=== PATIENT | male | born 1990 | race Caucasian/White ===

== ENCOUNTER 2022-01-13 13:21 | Emergency (ER) | payer MEDICAID, SELFPAY ==
[2022-01-13 13:30] VITALS: BP 108/66; PULSE 95; RESP 17; TEMP 36.1; O2SAT 98; BMI 24.5
[2022-01-13 13:38] LABS: Basophils Percent Auto 0.2 % (0-2); Eosinophils Absolute Auto 0.3 X10*3/uL (0.0-0.4); Eosinophils Percent Auto 3.5 % (0-4); Hematocrit 38.5 % (42.0-52.0); Imm Gran Abs Auto 0.08 X10*3/uL (0.00-0.03); Lymphocytes Absolute Auto 2.6 X10*3/uL (1.2-4.9); Lymphocytes Percent Auto 31.1 % (20-40); MANUAL DIFF FLAG SCAN; Mean Corpuscular HGB Conc 33.8 g/dl (31.0-36.0); Mean Corpuscular Volume 88.7 fL (80.0-98.0); Mean Platelet Volume 9.9 fL (9.4-12.4); Monocytes Absolute Auto 0.9 X10*3/uL (0.1-1.2); Monocytes Percent Auto 11.1 % (2-11); Neutrophils Absolute Auto 4.3 x10*3/uL (2.0-8.3); Neutrophils Percent Auto 53.1 % (45-73); Platelet Count 253 X10*3/uL (160-400); Red Blood Count 4.34 X10*6/uL (4.60-5.80); Red Cell Distribution Width 12.3 % (11.0-16.0); SCAN SMEAR FLAG 1; White Blood Count 8.2 X10*3/uL (4.8-10.8)
[2022-01-13 13:53] LABS: Anion Gap 13 (12-20); Blood Urea Nitrogen 17 mg/dL (9-16); Calcium 8.9 mg/dL (8.4-10.2); Carbon Dioxide 25 mmol/L (22-29); Chloride 108 mmol/L (96-108); Creatinine Clr Calc Pharmacy 123.3; Estimated Glomerular Filt Rate > 60; Glucose Random 105 mg/dL (60-115); Potassium 3.6 mmol/L (3.3-5.1); Sodium 142 mmol/L (135-145)
[2022-01-13 14:06] LABS: SLIDE REVIEW VERIFIED
== END 2022-01-13 17:59 | disposition left against medical advice (07) ==
LOC: HO.ED 17:34
PROVIDERS: Emergency Provider Emergency Medicine
DX: R10.9 Unspecified abdominal pain (principal)
CPT/HCPCS: 36415; 80048; 85025; 99283

== ENCOUNTER 2022-01-14 07:26 | Emergency (ER) | payer MEDICAID, SELFPAY ==
--- NOTE | ~2022-01-14 | XR_ITS ---
EXAMINATION: XR RIBS, LEFT CLINICAL INFORMATION: Left chest wall pain COMPARISON: Previous x-ray September 2019 TECHNIQUE: 3 views of the left ribs and one view of the chest were obtained. FINDINGS: Lungs are clear. No consolidation, pneumothorax, or pleural effusion. The cardiomediastinal silhouette and pulmonary vasculature are normal. Osseous structures are unremarkable. Ribs are intact. No fractures are identified. XR/XR ribs LT min 3V w CXR1V IMPRESSION: Unremarkable examination.
[2022-01-14 07:30] VITALS: BP 110/70; PULSE 80; O2SAT 98
[2022-01-14 07:33] VITALS: BP 100/66; PULSE 79; RESP 18; TEMP 36.6; O2SAT 99; BMI 24.2
--- NOTE | 2022-01-14 08:55 | PC.NURSE ---
collar placed on patient, patient removed collar and says that his neck does not hurt but his jaw is killing him.
--- NOTE | 2022-01-14 09:03 | ECG_ITS ---
Test Reason : CHEST PAIN Blood Pressure : / mmHG Vent. Rate : 083 BPM Atrial Rate : 083 BPM P-R Int : 156 ms QRS Dur : 084 ms QT Int : 372 ms P-R-T Axes : 046 059 050 degrees QTc Int : 437 ms Normal sinus rhythm Normal ECG When compared with ECG of 07-SEP-2019 23:52, No significant change was found Referred By: Quita Waller Electronically Signed By:SANDY ISABEL MD
--- NOTE | 2022-01-14 09:04 | ED_ITS ---
HPI - General Adult General Chief complaint: Psychiatric Symptoms Stated complaint: left flank pain - improved with rest Time Seen by Provider: 01/14/22 09:00 Source: patient Mode of arrival: ambulatory Limitations: no limitations History of Present Illness HPI narrative: 31-year-old male came in for evaluation of chest pain. Chest pain localized to the left side of the chest for 1 day pain is localized to the left side with no radiation, described as sharp aching pain constant since yesterday increase with movement and taking a deep breath. It not associated with shortness of breath, no recent trauma to chest, no recent travel, no lower extremity swelling or tenderness. Patient declined using drugs in particular cocaine, there is a history of cigarette smoking, no family history of coronary artery disease or young . Patient came to the emergency department yesterday because of the high volume patient did not want to wait and left to the scene. Related Data Allergies Allergy/AdvReac Type Severity Reaction Status Date / Time Penicillins [PENICILLINS] Allergy Unknown UKNOWN Verified 01/13/22 13:33 haloperidol [From Haldol] Allergy Unknown Verified 01/13/22 13:33 Review of Systems Review of Systems: All other systems are reviewed and are negative Constitutional: Reports as per HPI and Reports no additional constitutional complaints Eyes: Reports as per HPI and Reports no additional eye complaints Reports system reviewed and no additional complaints, except as documented Cardiovascular: Reports as per HPI and Reports no additional cardiovascular complaints Respiratory: Reports as per HPI and Reports no additional respiratory complaints Gastrointestinal: Reports as per HPI and Reports no additional gastrointestinal complaints Genitourinary: Reports no additional female genitourinary complaints Musculoskeletal: Reports no additional musculoskeletal complaints Skin/Breast: Reports system reviewed and no additional complaints, except as docu Psychiatric: Reports no additional psychiatric complaints Endocrine: Reports no additional endocrine complaints Hematologic/Lymphatic: Reports no additional hematologic/lymphatic complaints Allergic/Immunologic: Reports no additional allergic/immunologic complaints Reports system reviewed and no additional complaints, except as documented and Reports Abnormal speech present PMFSH Social History Social History Advance Directives: No Advance Directives Information Provided: No Physical Exam ED Vital Signs: Vital Signs - 24 hr 01/14/22 07:33 01/14/22 09:58 Temperature 98 F 97.8 F Pulse Rate 79 75 Respiratory Rate 18 15 Blood Pressure 100/66 103/64 Pulse Oximetry 99 98 BMI result Body Mass Index 24.2 Vital signs have been reviewed as appeared to be correct. Blood pressure normal. Heart rate normal. Respiration rate normal. Temperature normal. Oxygen saturation normal. Appearance: Alert. Oriented X3. No acute distress. Head: Normal external exam. Normocephalic. Atraumatic. No Cohen signs noted. No raccoon eyes noted Eyes: PERRLA. EOMI. Conjunctiva and sclera normal. Eyelids normal. ENT: TM's Normal. Pharynx normal. Uvula midline. Moist mucous membranes. No trismus noted. No drooling noted. No muffled voice noted. Neck: Normal inspection. Neck supple. FROM. No adenopathy. Thyroid Normal. No meningeal signs. No neck mass noted. CVS: Normal heart rate and rhythm. Heart sound normal. No murmurs noted. Pulses normal throughout. Respiratory: No respiratory distress. Painless inspiration. Breath sounds normal. No wheezes/rales/rhonchi noted. Chest nontender. No accessory muscle usage noted or decreased air movement noted. Abdomen: Soft and nontender. Bowel sounds normal in all 4 quadrants. No distention noted. No organomegaly noted. No visible injury noted. Back: No CVA tenderness. Full range of motion noted. Skin: Skin warm and dry. Normal skin color. Normal skin turgor. No rashes/lesions/lacerations noted. Extremities: No lower extremity edema. Extremities exhibit normal range of motion. Extremities nontender. Neuro: Oriented X 3. Cranial nerve exam: II-XII are grossly intact No motor deficit. No sensory deficit. Reflexes normal. Course Course Course Narrative: Assessment and plan. 31-year-old male came in with left-sided chest pain, unremarkable cardiac workup and chest x-ray, HEART SCORE is 0. D-dimer is negative with no risk for PE. Reevaluation(s) Reevaluation #1: While patient been evaluated for chest pain patient claimed that his hearing voices telling him to hurt himself and others and patient feels very anxious and unsafe like to be evaluated by N. Patient had a previous mental hospitalization but there is no official psychiatric diagnosis for the patient. Will consult N. Patient was placed on physician observation at 12:10 waiting for mental evaluation patient appears stable with stable vital signs and medically cleared for psych evaluation. Time: 12:10 Medical Decision Making Lab Data Lab results reviewed: Yes I reviewed the patient's lab results. Result diagrams: 01/14/22 10:11 01/14/22 10:11 Labs: Lab Results 01/14/22 01/14/22 01/14/22 Range/Units 10:11 10:11 10:11 WBC 7.7 (4.8-10.8) X10*3/uL RBC 4.55 L (4.60-5.80) X10*6/uL Hgb 13.3 L (14.0-18.0) g/dl Hct 40.5 L (42.0-52.0) % MCV 89.0 (80.0-98.0) fL MCH 29.2 (27.0-33.0) pg MCHC 32.8 (31.0-36.0) g/dl RDW 12.4 (11.0-16.0) % Plt Count 247 (160-400) X10*3/uL MPV 9.9 (9.4-12.4) fL Immature Gran % (Auto) 1.4 H (0.0-0.4) % Neut % (Auto) 47.7 (45-73) % Lymph % (Auto) 35.9 (20-40) % [place] % (Auto) 11.1 H (2-11) % Eos % (Auto) 3.6 (0-4) % Baso % (Auto) 0.3 (0-2) % Lymph # (Auto) 2.8 (1.2-4.9) X10*3/uL [place] # (Auto) 0.9 (0.1-1.2) X10*3/uL Eos # (Auto) 0.3 (0.0-0.4) X10*3/uL Baso # (Auto) 0.0 (0.0-0.2) X10*3/uL Abs Immat Gran (auto) 0.11 H (0.00-0.03) X10*3/uL Absolute Neuts (auto) 3.7 (2.0-8.3) x10*3/uL Absolute Nucleated RBC 0.000 (0.0-0.012) X10*3/uL Nucleated RBC % (auto) 0.0 (0.0-0.2) /100WBC Smear Tech's Comments VERIFIED D-Dimer High Sensitivty < 150 NG/ML Sodium 139 (135-145) mmol/L Potassium 4.2 (3.3-5.1) mmol/L Chloride 106 (96-108) mmol/L Carbon Dioxide 26 (22-29) mmol/L Anion Gap 11 L (12-20) BUN 14 (9-16) mg/dL Creatinine 0.73 (0.5-1.4) mg/dL Estim Creat Clear Calc 133.5 Estimated GFR > 60 Random Glucose 100 (60-115) mg/dL Calcium 8.9 (8.4-10.2) mg/dL Total Bilirubin 0.2 (0.0-1.0) mg/dL Direct Bilirubin < 0.2 (0.0-0.5) mg/dL AST 47 H (5-37) U/L ALT 69 H (0-40) U/L Alkaline Phosphatase 116 (39-117) U/L Troponin I High Sens (<3.5-35.0) ng/L Total Protein 6.7 (6.5-8.0) g/dL Albumin 3.7 (3.5-5.0) g/dL Lipase 53 (8-78) U/L 01/14/22 Range/Units 10:11 WBC (4.8-10.8) X10*3/uL RBC (4.60-5.80) X10*6/uL Hgb (14.0-18.0) g/dl Hct (42.0-52.0) % MCV (80.0-98.0) fL MCH (27.0-33.0) pg MCHC (31.0-36.0) g/dl RDW (11.0-16.0) % Plt Count (160-400) X10*3/uL MPV (9.4-12.4) fL Immature Gran % (Auto) (0.0-0.4) % Neut % (Auto) (45-73) % Lymph % (Auto) (20-40) % [place] % (Auto) (2-11) % Eos % (Auto) (0-4) % Baso % (Auto) (0-2) % Lymph # (Auto) (1.2-4.9) X10*3/uL [place] # (Auto) (0.1-1.2) X10*3/uL Eos # (Auto) (0.0-0.4) X10*3/uL Baso # (Auto) (0.0-0.2) X10*3/uL Abs Immat Gran (auto) (0.00-0.03) X10*3/uL Absolute Neuts (auto) (2.0-8.3) x10*3/uL Absolute Nucleated RBC (0.0-0.012) X10*3/uL Nucleated RBC % (auto) (0.0-0.2) /100WBC Smear Tech's Comments D-Dimer High Sensitivty NG/ML Sodium (135-145) mmol/L Potassium (3.3-5.1) mmol/L Chloride (96-108) mmol/L Carbon Dioxide (22-29) mmol/L Anion Gap (12-20) BUN (9-16) mg/dL Creatinine (0.5-1.4) mg/dL Estim Creat Clear Calc Estimated GFR Random Glucose (60-115) mg/dL Calcium (8.4-10.2) mg/dL Total Bilirubin (0.0-1.0) mg/dL Direct Bilirubin (0.0-0.5) mg/dL AST (5-37) U/L ALT (0-40) U/L Alkaline Phosphatase (39-117) U/L Troponin I High Sens < 3.5 (<3.5-35.0) ng/L Total Protein (6.5-8.0) g/dL Albumin (3.5-5.0) g/dL Lipase (8-78) U/L Imaging Data Chest x-ray/left rib x-ray: Attestation: I personally reviewed and interpreted this imaging study as follows: Radiologist's impression: Unremarkable examination. ECG Data Attestation: I personally reviewed and interpreted this ECG as follows: Interpretation: Normal sinus rhythm at 83 beats per minute, normal axis deviation, normal intervals, no ST-T changes. Discharge Plan Discharge Clinical Impression: Acute chest wall pain Patient Disposition: Still a Patient
[2022-01-14 09:58] VITALS: BP 103/64; PULSE 75; RESP 15; TEMP 36.6; O2SAT 98
[2022-01-14 10:17] LABS: Basophils Percent Auto 0.3 % (0-2); Eosinophils Absolute Auto 0.3 X10*3/uL (0.0-0.4); Eosinophils Percent Auto 3.6 % (0-4); Hematocrit 40.5 % (42.0-52.0); Hemoglobin 13.3 g/dl (14.0-18.0); Imm Gran Abs Auto 0.11 X10*3/uL (0.00-0.03); Imm Gran Pct Auto 1.4 % (0.0-0.4); Lymphocytes Absolute Auto 2.8 X10*3/uL (1.2-4.9); Lymphocytes Percent Auto 35.9 % (20-40); MANUAL DIFF FLAG SCAN; Mean Corpuscular HGB Conc 32.8 g/dl (31.0-36.0); Mean Corpuscular Hemoglobin 29.2 pg (27.0-33.0); Mean Platelet Volume 9.9 fL (9.4-12.4); Monocytes Absolute Auto 0.9 X10*3/uL (0.1-1.2); Monocytes Percent Auto 11.1 % (2-11); Neutrophils Absolute Auto 3.7 x10*3/uL (2.0-8.3); Neutrophils Percent Auto 47.7 % (45-73); Platelet Count 247 X10*3/uL (160-400); Red Blood Count 4.55 X10*6/uL (4.60-5.80); Red Cell Distribution Width 12.4 % (11.0-16.0); SCAN SMEAR FLAG 1; White Blood Count 7.7 X10*3/uL (4.8-10.8)
[2022-01-14 10:27] LABS: D Dimer High Sensitivity < 150 NG/ML
[2022-01-14 10:35] LABS: Alanine Aminotransferase 69 U/L (0-40); Albumin Level 3.7 g/dL (3.5-5.0); Alkaline Phosphatase 116 U/L (39-117); Anion Gap 11 (12-20); Aspartate Amino Transferase 47 U/L (5-37); Bilirubin Direct < 0.2 mg/dL (0.0-0.5); Bilirubin Total 0.2 mg/dL (0.0-1.0); Blood Urea Nitrogen 14 mg/dL (9-16); Calcium 8.9 mg/dL (8.4-10.2); Carbon Dioxide 26 mmol/L (22-29); Chloride 106 mmol/L (96-108); Creatinine Clr Calc Pharmacy 133.5; Estimated Glomerular Filt Rate > 60; Glucose Random 100 mg/dL (60-115); Lipase 53 U/L (8-78); Potassium 4.2 mmol/L (3.3-5.1); Sodium 139 mmol/L (135-145); Total Protein 6.7 g/dL (6.5-8.0)
[2022-01-14 10:36] LABS: SLIDE REVIEW VERIFIED
[2022-01-14 10:40] LABS: Troponin-I High Sensitivity < 3.5 ng/L (<3.5-35.0)
--- NOTE | 2022-01-14 10:47 | SUR.OPER ---
PT STATES I WANT TO SPEAK TO PSYCHIATRY, I AM HAVING HALLUCINATIONS AND HAVING THOUGHTS OF KILLING OTHER PEOPLE. STUDIO TECHNICIAN AWARE.
--- NOTE | 2022-01-14 10:57 | PC.NURSE ---
REPORT GIVEN TO SAURAV RN IN POD, PT ESCORTED BY SECURITY AND POD STAFF OVER TO POD.
--- NOTE | 2022-01-14 11:00 | PC.NURSE ---
PT TRANSFERED TO POD FROM EM, ORIGINALLY CAME IN FOR CHEST PAIN, THEN STATED HAVING HALLUCINATIONS AND HOMICIDAL IDEATION.
[2022-01-14 12:29] LABS: Appearance Urine CLEAR; Color Urine YELLOW; Glucose Urine UA NEG (NEG); Leukocyte Esterase Urine NEG (NEG); Nitrite Urine NEG (NEG); Specific Gravity - Urine 1.025 (1.005-1.025); Urine Blood NEG (NEG); Urine Ketones NEG (NEG); Urine Protein NEG (NEG-TRACE)
[2022-01-14 12:41] LABS: Amphetamine Screen Urine Not Detected (Not Detect); Barbiturates, Urine Not Detected (Not Detect); Benzodiazepines Screen Urine Not Detected (Not Detect); Cannabinoid Screen Urine POSITIVE (Not Detect); Cocaine Screen Urine Not Detected (Not Detect); Fentanyl, urine Not Detected (Not Detect); Opiate Screen Urine Not Detected (Not Detect); Phencyclidine Screen Urine Not Detected (Not Detect)
[2022-01-14 14:30] LABS: Ethanol < 10 mg/dL
[2022-01-14 16:20] LABS: COVID-19 Test Negative (Negative)
[2022-01-15 05:55] VITALS: BP 97/65; PULSE 75; RESP 17; O2SAT 97
--- NOTE | 2022-01-15 06:06 | PC.NURSE ---
Patient slept through the night, no distress observed/reported, currently not on medication, behavior appropriate and non concerning at this time, disposition per care team is section 12 inpatient bed search, contracted for the safety, VSS, will continue to monitor.
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
[2022-01-15] MEDS: LORazepam 1 MG TABLET 2 MG PO (16:04)
--- NOTE | 2022-01-15 16:09 | PC.NURSE ---
Spoke with psych PA regarding pt being discharged from hospital PA notified that patient just took 2mg ativan po. PA gave this nurse ok to discharge patient.
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
== END 2022-01-15 16:54 | disposition home or self-care (01) ==
PROVIDERS: Physician Assistant; Emergency Provider Emergency Medicine
DX: F39 Unspecified mood [affective] disorder (principal); R07.89 Other chest pain; Z59.02 Unsheltered homelessness; Z20.822 Contact with and (suspected) exposure to COVID-19
CPT/HCPCS: 36415; 71101; 80048; 80076; 80307; 81003; 82077; 83690; 84484; 85025; 85379; 87635; 93005; 99284

== ENCOUNTER 2022-01-18 18:00 | Emergency (ER) | payer MEDICAID, SELFPAY ==
[2022-01-18 18:40] VITALS: BP 113/69; PULSE 77; RESP 14; TEMP 36.6; O2SAT 99; BMI 25.0
[2022-01-18 20:14] LABS: Ethanol < 10 mg/dL
[2022-01-18 20:18] LABS: COVID-19 Test Negative (Negative); IDNOW Serial# 55D5AD1C
[2022-01-18 20:25] LABS: Amphetamine Screen Urine Not Detected (Not Detect); Barbiturates, Urine Not Detected (Not Detect); Benzodiazepines Screen Urine Not Detected (Not Detect); Cannabinoid Screen Urine POSITIVE (Not Detect); Cocaine Screen Urine POSITIVE (Not Detect); Fentanyl, urine POSITIVE (Not Detect); Opiate Screen Urine Not Detected (Not Detect); Phencyclidine Screen Urine Not Detected (Not Detect)
--- NOTE | 2022-01-18 20:37 | ED_ITS ---
HPI - Psych General Chief Complaint: Psychiatric Symptoms <Christy Reddy BARBI Brady - Last Filed: 01/19/22 01:52> Stated Complaint: Crisis <Christy AranaBARBI salter - Last Filed: 01/19/22 01:52> Time Seen by Provider: 01/18/22 19:21 <Christy Reddy BARBI Brady - Last Filed: 01/19/22 01:52> Source: patient <Christy BradyBARBI - Last Filed: 01/19/22 01:52> Mode of arrival: ambulatory <Christy AranaBARBI salter - Last Filed: 01/19/22 01:52> Limitations: no limitations <Christy AranaBARBI salter - Last Filed: 01/19/22 01:52> History of Present Illness HPI Narrative: Patient presents to the emergency department requesting to see crisis/spe ak to a psychiatrist. He states that he has been hearing voices and they are arguing with him and he feels unsafe. He endorses suicidal ideations and homicidal ideations, but is vague in declines to provide any further details. States he is not currently taking any medications. Reports that he used heroin a few days ago, but has not used any other drugs or alcohol. Denies fevers, chills, upper respiratory symptoms, chest pain, palpitations, shortness of breath, difficulty breathing, nausea, vomiting, abdominal pain, dysuria, urinary frequency, numbness or tingling of the extremities, generalized weakness. <Christycristina Brady CNP - Last Filed: 01/19/22 01:52> MD complaint: suicidal ideation, homicidal ideation and hallucinations <Christy Maureenmariah Brady CNP - Last Filed: 01/19/22 01:52> Onset (ago): day(s) <Christycristina Brady CNP - Last Filed: 01/19/22 01:52> History of same: Yes <Christycristina Brady CNP - Last Filed: 01/19/22 01:52> Relieving factors: none <Christy Brady CNP Last Filed: 01/19/22 01:52> Exacerbating factors: none <Christy Brady CNP - Last Filed: 01/19/22 01:52> Related Data Home Medications: Home Medications Medication Instructions Recorded Confirmed No Known Home Meds 01/14/22 01/14/22 <Christy Brady CNP - Last Filed: 01/19/22 01:52> Allergies/Adverse Reactions: Allergies Allergy/AdvReac Type Severity Reaction Status Date / Time Penicillins [PENICILLINS] Allergy Unknown [place] Verified 01/13/22 13:33 haloperidol [From Haldol] Allergy Unknown Verified 01/13/22 13:33 <Christy Brady CNP - Last Filed: 01/19/22 01:52> Review of Systems Review of Systems: Constitutional : No Fever, No Chills ENT/Mouth : No Ear Pain, No Nasal Congestion, No sore throat Eyes: No Eye Pain, No Swelling, No Redness Cardiovascular : No Chest Pain, No SOB Respiratory : No Cough, No Sputum, No Dyspnea Gastrointestinal : No Nausea, No Vomiting, No Diarrhea, No Hematochezia, No Melena Genitourinary : No Dysuria, No Urinary Frequency, No Hematuria Musculoskeletal : No Myalgias Skin : No Skin Lesions, No rash Neuro : No Weakness, No Numbness, No Paresthesias, No Dizziness, No Headache Psych : positive Anxiety, no Depression, positive SI/HI, positive auditory hallucinations Heme/Lymph: No Lymphadenopathy Endocrine : No Polyuria, No Polydipsia <Christy Brady CNP - Last Filed: 01/19/22 01:52> Yes all other systems are reviewed and are negative <Christy Brady CNP - Last Filed: 01/19/22 01:52> [facility] Past Medical History Attestation statement: The following information was validated with the patient. <Christy Brady CNP - Last Filed: 01/19/22 01:52> Source: old records reviewed <Christy Brady CNP - Last Filed: 01/19/22 01:52> Social History Social History: Social History Advance Directives: No Advance Directives Information Provided: No Healthcare Proxy: No Guardian: No <Christy Brady CNP - Last Filed: 01/19/22 01:52> Physical Exam Vital Signs: Vital Signs: Last Vital Signs Temp 97.8 F 01/18/22 18:40 Pulse 77 01/18/22 18:40 Resp 17 01/19/22 06:50 BP 113/69 01/18/22 18:40 Pulse Ox 99 01/18/22 18:40 BMI result Body Mass Index 25.0 Vital signs have been reviewed as normal and appeared to be correct. Blood pressure normal.? Heart rate normal.? Respiration rate normal. Temperature normal.? Oxygen saturation normal. <Christy Brady CNP - Last Filed: 01/19/22 01:52> Vital Signs: Last Vital Signs Temp 97.8 F 01/18/22 18:40 Pulse 77 01/18/22 18:40 Resp 17 01/19/22 06:50 BP 113/69 01/18/22 18:40 Pulse Ox 99 01/18/22 18:40 BMI result Body Mass Index 25.0 <RASHAD Richter - Last Filed: 01/19/22 11:21> Appearance: Alert.?Oriented to person, place and time. No acute distress.?Normal affect. Eyes: Pupils equal, round and reactive to light.? ENT: Pharynx normal.?? Neck: Normal inspection.? Neck supple.?? CVS: Heart sounds normal. Normal heart rate and rhythm.? Pulses normal.?? Respiratory: No respiratory distress.? Lung sounds clear to auscultation bilaterally?? Abdomen: Soft and non-tender. Normoactive bowel sounds. Skin: Skin warm and dry.? Normal skin color.? Extremities: No lower extremity edema.? Neuro: Moves all extremities spontaneously. Sensation intact bilaterally. CN II- XII intact. No focal neuro deficits. Ambulates with normal steady gait. <Christy Brady CNP - Last Filed: 01/19/22 01:52> Course Course Course Narrative: Patient is a 31-year-old male with a past medical history of substance use, and mood disorder. Presenting to the emergency department for evaluation of auditory hallucinations and vague suicidal and homicidal ideations. Patient was in the emergency department 3 days ago with similar complaints, he was of evaluated by Psychiatry and reports that he had a wide about suicidal ideations because he is homeless and wanted is to stay in the hospital longer after being evaluated for chest pain. Will obtain drug of abuse screen, ethanol level, and COVID-19 testing, patient will be referred to [facility] for further disposition. <Christy Brady CNP - Last Filed: 01/19/22 01:52> Reevaluation(s) Reevaluation #1: COVID-19 testing is negative. Ethanol is not detected. Drug abuse screen positive for fentanyl, cocaine, marijuana. At this time patient placed in physician observation as he will require further time to be evaluated by and [facility]. He remains in stable condition, no apparent distress, respirations are regular even and non-labored, speaking in clear full sentences. <Christy Brady CNP - Last Filed: 01/19/22 01:52> Time: 20:43 <Christy Brady CNP - Last Filed: 01/19/22 01:52> Reevaluation #2: 1122 01/19/2022 Patient's physical exam is unchanged from previous. Patient is still awaiting [facility] evaluation. <RASHAD Richter - Last Filed: 01/19/22 11:21> MDM - Psych Medical Records Attestation: I reviewed the patient's medical records. <Christy Brady CNP - Last Filed: 01/19/22 01:52> Lab Data Attestation: I reviewed the patient's lab results. <Christy Brady CNP - Last Filed: 01/19/22 01:52> Labs: Lab Results 01/18/22 01/18/22 01/18/22 Range/Units 19:46 19:46 20:02 Urine Opiates Screen Not Detected (Not Detect) Urine Fentanyl Screen POSITIVE H (Not Detect) Ur Barbiturates Screen Not Detected (Not Detect) Ur Phencyclidine Scrn Not Detected (Not Detect) Ur Amphetamines Screen Not Detected (Not Detect) U Benzodiazepines Scrn Not Detected (Not Detect) Urine Cocaine Screen POSITIVE H (Not Detect) U Marijuana (THC) Screen POSITIVE H (Not Detect) Ethyl Alcohol < 10 mg/dL COVID-19 (SYLVAIN) Negative (Negative) COVID-19 Clin Com See Note <Christy Brady CNP - Last Filed: 01/19/22 01:52> Lab Results 01/18/22 01/18/22 01/18/22 Range/Units 19:46 19:46 20:02 Urine Opiates Screen Not Detected (Not Detect) Urine Fentanyl Screen POSITIVE H (Not Detect) Ur Barbiturates Screen Not Detected (Not Detect) Ur Phencyclidine Scrn Not Detected (Not Detect) Ur Amphetamines Screen Not Detected (Not Detect) U Benzodiazepines Scrn Not Detected (Not Detect) Urine Cocaine Screen POSITIVE H (Not Detect) U Marijuana (THC) Screen POSITIVE H (Not Detect) Ethyl Alcohol < 10 mg/dL COVID-19 (SYLVAIN) Negative (Negative) COVID-19 Clin Com See Note <RASHAD Richter - Last Filed: 01/19/22 11:21> Discharge Plan Discharge Clinical Impression: Auditory hallucination, Suicidal ideation <Christy Brady CNP - Last Filed: 01/19/22 01:52> Patient Disposition: Still a Patient <Christy Brady CNP - Last Filed: 01/19/22 01:52> Prescriptions: No Action No Known Home Meds 0RF <Christy Brady CNP - Last Filed: 01/19/22 01:52>
--- NOTE | 2022-01-19 06:22 | PC.NURSE ---
Patient slept through the night, no distress observed/reported, care team spoke with patient, pending disposition, NANDA f/u by care team, VSS, behavior non concerning at this time, patient is not on medication, will continue to monitor.
[2022-01-19 06:50] VITALS: RESP 17
--- NOTE | 2022-01-19 07:41 | PC.NURSE ---
pt asleep, resps are= and nonlabored. awaiting dispo from by care team.
--- NOTE | 2022-01-19 11:44 | PC.NURSE ---
pt is awake and alert, pt has been evaluated by care team, awaiting dispo. pt has intercating approprialty with staff.
--- NOTE | 2022-01-19 13:02 | PC.NURSE ---
Per care team pt is a voluntary bed search, pt is aware and agreeable to plan of care. pt is interacting appropriatly with staff and speaking in clear and even tones.
--- NOTE | 2022-01-19 16:05 | MHC.CARE ---
CARE Team meets with pt, as there is no local psych bed available. CARE Team explains to pt that the search will need to be expanded to [facility]. Pt states that he does not want to be hospitalized at this time. He denies SI/HI//AVH and agrees to return to the hospital or reach out to [facility] crisis if symptoms re emerge. Pt is given [place] passes, reporting that he has a safe place to stay. ED provider, RASHAD Cosme agrees to discharge pt at this time.
== END 2022-01-19 16:20 | disposition home or self-care (01) ==
PROVIDERS: Emergency Provider Internal Medicine
DX: F33.1 Major depressive disorder, recurrent, moderate (principal); R45.851 Suicidal ideations; R44.0 Auditory hallucinations; Z20.822 Contact with and (suspected) exposure to COVID-19; Z79.899 Other long term (current) drug therapy
CPT/HCPCS: 36415; 80307; 82077; 87635; 99284

== ENCOUNTER 2022-01-25 01:52 | Emergency (ER) | payer MEDICAID, SELFPAY ==
--- NOTE | ~2022-01-25 | XR_ITS ---
EXAMINATION: XR CHEST CLINICAL INFORMATION: Lateral chest pain COMPARISON: 01/14/2022 TECHNIQUE: 2 views of the chest were obtained. FINDINGS: The lungs are clear with no focal consolidation. No evidence of pneumothorax, pulmonary edema, or pleural effusions. The cardiomediastinal silhouette is unremarkable. No acute osseous findings. XR/XR chest 2V IMPRESSION: No acute cardiopulmonary findings.
[2022-01-25 02:01] VITALS: BP 160/90; PULSE 80; O2SAT 100
[2022-01-25 02:29] VITALS: BP 114/62; PULSE 76; PULSE 78; RESP 18; TEMP 36.4; O2SAT 98; BMI 21.2
--- NOTE | 2022-01-25 02:37 | ED.CHESTPAIN ---
HPI - Chest Pain General Chief Complaint: Chest Pain Stated Complaint: LEFT SIDED CHEST PAIN Time Seen by Provider: 01/25/22 02:37 Source: patient Mode of arrival: EMS Limitations: no limitations History of Present Illness HPI narrative: patient got chest pain while at a bar drinking. Pain is left lateral, no other symptoms complaint: chest pain Onset (ago): hour(s) Timing of current episode: constant Prior episodes: No Onset: during rest Pain location: left chest Severity: mild Quality: aching Related Data Previous Rx's Medication Instructions Recorded naproxen 500 mg tablet (Naprosyn) 500 mg PO BID #20 tab 01/25/22 Allergies Allergy/AdvReac Type Severity Reaction Status Date / Time Penicillins [PENICILLINS] Allergy Unknown [place] Verified 01/13/22 13:33 haloperidol [From Haldol] Allergy Unknown Verified 01/13/22 13:33 Review of Systems Constitutional: Constitutional: Reports no additional constitutional complaints Eyes: Eyes: Reports no additional eye complaints ENT: Denies dizziness Cardiovascular: Cardiovascular: Reports no additional cardiovascular complaints Respiratory: Respiratory: Reports as per HPI Gastrointestinal: Gastrointestinal: Reports no additional gastrointestinal complaints Musculoskeletal: Musculoskeletal: Reports no additional musculoskeletal complaints Integumentary/Breasts: Skin/Breast: Denies rash Neurologic: Reports system reviewed and no additional complaints, except as documented, Denies dizziness and Denies Sensory deficit (Neuro) Psychiatric: Psychiatric: Denies anxiety [facility] Social History Social History Advance Directives: No Advance Directives Information Provided: No Physical Exam Vital Signs: Vital Signs: Last Vital Signs Temp 97.5 F 01/25/22 02:29 Pulse 76 01/25/22 02:29 Resp 18 01/25/22 02:29 BP 114/62 01/25/22 02:29 Pulse Ox 98 01/25/22 02:29 BMI result Body Mass Index 21.2 Const: General: healthy appearing Nutritional Appearance: average body habitus Orientation/consciousness: oriented to person and patient oriented x3 Limitations: no limitations HEENT: Head: Yes normal to inspection Ears: external ears normal General nose exam: Normal external nose present Mouth: Normal oral and palatal mucosa present and oropharynx normal Throat: Yes posterior oropharynx normal Eyes: General: appearance normal, both eyes and all related structures Neck: Other: supple Neck: Yes normal visual inspection Chest: Chest palpation & inspection: normal inspection of the chest Resp: Auscultation: clear to auscultation bilaterally Cardio: Jugular venous distension: no JVD Rate: regular rate Rhythm: regular rhythm Heart sounds: S1 normal heart sound present and S2 normal heart sound present GI: Inspection: Yes normal to inspection Palpation (GI): Soft to palpation, nontender and No hepatosplenomegaly present Auscultation: normal bowel sounds : General: Yes no CVA tenderness Back/Spine/Pelvis: Back: no CVA tenderness Skin: General skin exam: no rashes or lesions noted Neuro: General: oriented to person and patient oriented x3 Cranial nerves: Yes CN's II-XII intact bilaterally Motor exam (neuro): 5/5 motor strength present throughout Sensory Exam: No Sensory deficit (Neuro) Extrem: General: Yes normal to inspection Psych: Appearance: grossly normal Course Reevaluation(s) Reevaluation #1: Patient with normal EKG and CXR with slightly reproducible chest pain on the left lateral side, will start NSAIDs and dc home Time: 03:45 MDM - Chest Pain Imaging Data Chest x-ray: Radiologist's impression: FINDINGS: The lungs are clear with no focal consolidation. No evidence of pneumothorax, pulmonary edema, or pleural effusions. The cardiomediastinal silhouette is unremarkable. No acute osseous findings. XR/XR chest 2V IMPRESSION: No acute cardiopulmonary findings. Discharge Plan Discharge Clinical Impression: Atypical chest pain, Acute costochondritis Patient Disposition: Home, Self-Care Instructions: Costochondritis (ED), Noncardiac Chest Pain (ED) Prescriptions: New naproxen [Naprosyn] 500 mg tablet 500 mg PO BID Qty: 20 0RF Referrals: Physician,Unknown J [Primary Care Provider] - 1 week
--- NOTE | 2022-01-25 02:43 | ECG_ITS ---
Test Reason : CP Blood Pressure : / mmHG Vent. Rate : 084 BPM Atrial Rate : 084 BPM P-R Int : 150 ms QRS Dur : 084 ms QT Int : 390 ms P-R-T Axes : 061 073 066 degrees QTc Int : 460 ms Normal sinus rhythm Normal ECG When compared with ECG of 14-JAN-2022 09:47, No significant change was found Referred By: Regis Oakes Electronically Signed By:Edmund Kwong
--- NOTE | 2022-01-25 04:00 | PC.NURSE ---
pt ambulated out t [facility] after dc. pt requested and was given apple juice
== END 2022-01-25 04:23 | disposition home or self-care (01) ==
PROVIDERS: Emergency Provider Emergency Medicine
DX: R07.89 Other chest pain (principal); M94.0 Chondrocostal junction syndrome [Tietze]
CPT/HCPCS: 71046; 93005; 99283; 99284

== ENCOUNTER 2022-01-29 00:15 | Emergency (ER) | payer MEDICAID, SELFPAY ==
[2022-01-29 00:27] VITALS: BP 125/73; PULSE 97; RESP 18; TEMP 36.7; O2SAT 97; BMI 24.3
[2022-01-29 00:32] VITALS: BP 111/74; PULSE 93; RESP 17; TEMP 36.7; O2SAT 96
--- NOTE | 2022-01-29 00:35 | ED.PSYCH ---
HPI - Psych General Chief Complaint: Psychiatric Symptoms Stated Complaint: SI Time Seen by Provider: 01/29/22 00:34 Source: patient Mode of arrival: ambulatory Limitations: no limitations History of Present Illness HPI Narrative: 31-year-old male with history of substance induced mood disorder, history of cocaine use, active heroin use who presents to the ER for evaluation of suicidal ideation with plan to overdose on heroin. This is his 4th ER visit this month. Patient was seen earlier for auditory hallucinations, SI and HI of which he later reported that he made up. He states he was admitted a few years ago and was on medications that made him feel better - he thinks it was seroquel, trazodone and other meds he cannot recall. He reports he was on Haldol as well but he doesn't believe in it. He also reports he does not believe in suboxone or methadone. He has been using heroin daily, last was earlier today. No withdrawal symptoms. He does not want detox. MD complaint: suicidal ideation and feels depressed Onset (ago): unknown Duration: constant History of same: Yes Relieving factors: none Exacerbating factors: drug use Context: recent drug abuse and not taking psychiatric medications Associated psychiatric symptoms: depression, suicidal ideation and auditory hallucinations Associated symptoms: denies other symptoms Treatments prior to arrival: none If self harm: admits thoughts of self harm and has plan Details of plan: OD on heroin Related Data Previous Rx's Medication Instructions Recorded naproxen 500 mg tablet (Naprosyn) 500 mg PO BID #20 tab 01/25/22 Allergies Allergy/AdvReac Type Severity Reaction Status Date / Time Penicillins [PENICILLINS] Allergy Unknown [place] Verified 01/29/22 00:26 haloperidol [From Haldol] Allergy Unknown Verified 01/29/22 00:26 Review of Systems Review of Systems: Constitutional: No Fever, No Chills ENT/Mouth: No sore throat, No Rhinorrhea, No Swallowing Difficulty Cardiovascular: No Chest Pain, No SOB Respiratory: No Cough, No Sputum, No Wheezing, No dyspnea Gastrointestinal: No Nausea, No Vomiting, No Diarrhea, No abdominal Pain Genitourinary: No Dysuria, No Urinary Frequency, No Hematuria Musculoskeletal: No joint pain, No Myalgias Skin: No Skin Lesions, No rash Neuro: No Weakness, No Numbness, No Dizziness, No Headache Psych: + Anxiety/Panic, +Depression, +SI, +AH, No VH, No HI Heme/Lymph: No Bruising, No Lymphadenopathy Physical Exam Vital Signs: Vital Signs: Last Vital Signs Temp 98.1 F 01/29/22 00:27 Pulse 97 01/29/22 00:27 Resp 18 01/29/22 00:27 BP 125/73 01/29/22 00:27 Pulse Ox 97 01/29/22 00:27 BMI result Body Mass Index 24.3 Appearance: Alert. Oriented X3. No acute distress. Eyes: Pupils equal, round and reactive to light. ENT: Pharynx normal. Neck: Normal inspection. Neck supple. CVS: Normal heart rate and rhythm. Pulses normal. Respiratory: No respiratory distress. Breath sounds normal. Abdomen: Soft and nontender. +BS x4 Skin: Skin warm and dry. Normal skin color. Normal skin turgor. No rashes. Extremities: No lower extremity edema. Neuro: Oriented X 3. No motor deficit. No sensory deficit. CN II-XII intact. Steady gait. Makes eye contact, verbally abusive to staff. Poor insight and judgment. Course Course Course Narrative: 31 yo male with substance induced mood disorder presenting with SI in the setting of active drug use. Doesn't believe in methadone or suboxone. He is seeking admission to get started back on psychiatric medications. Will check his Utox and re-evaluate him in the morning when he is sober. N referral to be made in the morning. Will start physician observation at this time. Physician observation started at 1:19am. Patient placed in physician observation because patient is awaiting [facility] evaluation for the possible need of inpatient psych admission. At the time observation was started patient's vital signs were stable. Patient is alert and oriented. Neuro exam is non-focal. CV: RRR and lungs are clear. Will continue to monitor. Discharge Plan Discharge Clinical Impression: Substance induced mood disorder Patient Disposition: Still a Patient Prescriptions: No Action naproxen [Naprosyn] 500 mg tablet 500 mg PO BID Qty: 20 0RF
[2022-01-29 01:24] LABS: Amphetamine Screen Urine Not Detected (Not Detect); Barbiturates, Urine Not Detected (Not Detect); Benzodiazepines Screen Urine Not Detected (Not Detect); Cannabinoid Screen Urine POSITIVE (Not Detect); Cocaine Screen Urine Not Detected (Not Detect); Fentanyl, urine POSITIVE (Not Detect); Opiate Screen Urine Not Detected (Not Detect); Phencyclidine Screen Urine Not Detected (Not Detect)
[2022-01-29 01:25] LABS: COVID-19 Test Negative (Negative)
[2022-01-29 01:37] LABS: MANUAL DIFF FLAG NO
[2022-01-29 01:38] LABS: Basophils Percent Auto 0.3 % (0-2); Eosinophils Absolute Auto 0.4 X10*3/uL (0.0-0.4); Eosinophils Percent Auto 3.6 % (0-4); Hemoglobin 11.9 g/dl (14.0-18.0); Imm Gran Abs Auto 0.04 X10*3/uL (0.00-0.03); Imm Gran Pct Auto 0.4 % (0.0-0.4); Lymphocytes Absolute Auto 3.2 X10*3/uL (1.2-4.9); Lymphocytes Percent Auto 33.2 % (20-40); Mean Corpuscular HGB Conc 33.1 g/dl (31.0-36.0); Mean Corpuscular Hemoglobin 29.2 pg (27.0-33.0); Mean Corpuscular Volume 88.2 fL (80.0-98.0); Mean Platelet Volume 10.5 fL (9.4-12.4); Monocytes Absolute Auto 1.1 X10*3/uL (0.1-1.2); Monocytes Percent Auto 11.4 % (2-11); Neutrophils Absolute Auto 4.9 x10*3/uL (2.0-8.3); Neutrophils Percent Auto 51.1 % (45-73); Platelet Count 250 X10*3/uL (160-400); Red Blood Count 4.08 X10*6/uL (4.60-5.80); Red Cell Distribution Width 12.6 % (11.0-16.0); White Blood Count 9.6 X10*3/uL (4.8-10.8)
[2022-01-29 01:55] LABS: Ethanol < 10 mg/dL
[2022-01-29 01:58] LABS: Acetaminophen LAB < 1 mcg/mL (<30); Salicylate < 5.0 mg/dL (15-30)
[2022-01-29 01:58] LABS: Alanine Aminotransferase 22 U/L (0-40); Albumin Level 3.7 g/dL (3.5-5.0); Alkaline Phosphatase 101 U/L (39-117); Anion Gap 12 (12-20); Aspartate Amino Transferase 20 U/L (5-37); Bilirubin Direct < 0.2 mg/dL (0.0-0.5); Bilirubin Total 0.3 mg/dL (0.0-1.0); Blood Urea Nitrogen 9 mg/dL (9-16); Calcium 9.2 mg/dL (8.4-10.2); Carbon Dioxide 28 mmol/L (22-29); Chloride 103 mmol/L (96-108); Creatinine Clr Calc Pharmacy 128.2; Estimated Glomerular Filt Rate > 60; Glucose Random 94 mg/dL (60-115); Potassium 3.8 mmol/L (3.3-5.1); Sodium 139 mmol/L (135-145); Total Protein 6.3 g/dL (6.5-8.0)
--- NOTE | 2022-01-29 07:16 | PC.NURSE ---
Patient slept through the night, no distress observed/reported, patient is currently not on any medication, [facility] referral completed/confirmed/pending ETA, VSS, contracted for the safety, behavior non concerning and appropriate, will continue to monitor.
--- NOTE | 2022-01-29 09:55 | PC.NURSE ---
seen by n pt aware of plan of care.
[2022-01-29 10:08] VITALS: BP 93/41; PULSE 62; RESP 16; O2SAT 97
--- NOTE | 2022-01-29 10:57 | PC.NURSE ---
pt request/given bus pass.
== END 2022-01-29 11:08 | disposition home or self-care (01) ==
PROVIDERS: Physician Assistant; Emergency Provider Student in an Organized Health Care Education/Training Program
DX: F33.1 Major depressive disorder, recurrent, moderate (principal); R45.850 Homicidal ideations; R45.851 Suicidal ideations; F14.10 Cocaine abuse, uncomplicated; F11.10 Opioid abuse, uncomplicated; R44.0 Auditory hallucinations; Z20.822 Contact with and (suspected) exposure to COVID-19; Z79.899 Other long term (current) drug therapy
CPT/HCPCS: 36415; 80048; 80076; 80143; 80179; 80307; 82077; 85025; 87635; 99283; 99284

== ENCOUNTER 2022-01-29 13:43 | Emergency (ER) | payer MEDICAID, SELFPAY ==
[2022-01-29 14:33] VITALS: BP 123/72; PULSE 95; RESP 16; TEMP 36.2; O2SAT 100; BMI 24.2
--- NOTE | 2022-01-29 17:17 | ED.ABDPAIN ---
HPI - Abdominal Pain General Chief Complaint: Abdominal Pain Stated Complaint: Stomach Pains Time Seen by Provider: 01/29/22 14:32 Source: patient and old records reviewed Mode of arrival: ambulatory Limitations: no limitations History of Present Illness HPI narrative: 31 yo male with history of substance induced mood disorder, depression, active heroin use who presents to the ER a few hours after discharge from the [facility] with reports of a stomach ache. He states the last time he ate was last week. He was seen last night for passive suicidal ideation after using heroin earlier in the day and came to the ER wanting to get started back on psychiatric medications that he was on a few years ago before he was lost to followup. He was seen by [facility] and deemed stable for discharge with outpatient services. He had labs done last night - normal CBC, LFTs. He declined detox saying he didn't believe in it. He comes back now with vague left sided abdominal aches and pains. He is hungry. Denies N/V/D. MD elicited complaint: abdominal pain Pertinent past history: none Onset (ago): unknown Pain Consistency: constant Location: [facility] Severity: moderate Quality: aching Radiation: none Exacerbating factors: nothing Relieving factors: nothing Associated symptoms: denies other symptoms Related Data Previous Rx's Medication Instructions Recorded naproxen 500 mg tablet (Naprosyn) 500 mg PO BID #20 tab 01/25/22 Allergies Allergy/AdvReac Type Severity Reaction Status Date / Time Penicillins [PENICILLINS] Allergy Unknown UKNOWN Verified 01/29/22 00:26 haloperidol [From Haldol] Allergy Unknown Verified 01/29/22 00:26 Review of Systems Review of Systems Constitutional: No Fever, No Chills ENT/Mouth: No sore throat, No Rhinorrhea, No Swallowing Difficulty Cardiovascular: No Chest Pain, No SOB Respiratory: No Cough, No Sputum Gastrointestinal: No Nausea, No Vomiting, No Diarrhea, + abdominal Pain, No Hematochezia, No Melena Genitourinary: No Dysuria, No Urinary Frequency, No Hematuria Musculoskeletal: No joint pain, No Myalgias Skin: No Skin Lesions, No rash Neuro: No Weakness, No Numbness, No Dizziness, No Headache Psych: No Anxiety/Panic, + Depression, No SI Heme/Lymph: No Bruising, No Lymphadenopathy Endocrine: No Polyuria, No Polydipsia PMFSH Social History Social History Advance Directives: No Advance Directives Information Provided: No Physical Exam ED Vital Signs: Vital Signs - 24 hr 01/29/22 14:33 01/29/22 18:49 01/29/22 21:08 Temperature 97.1 F 97.9 F Pulse Rate 95 83 86 Respiratory Rate 16 14 16 Blood Pressure 123/72 127/77 126/81 Pulse Oximetry 100 97 96 BMI result Body Mass Index 24.2 Appearance: Alert. Oriented X3. No acute distress. Eyes: Pupils dilated 4mm but equal, round and reactive to light. Hortizontal nystagmus present ENT: Pharynx normal. Neck: Normal inspection. Neck supple. CVS: Normal heart rate and rhythm. Pulses normal. Respiratory: No respiratory distress. Breath sounds normal. Abdomen: Soft and nontender. +BS x4 Skin: Skin warm and dry. Normal skin color. Normal skin turgor. No rashes. Extremities: No lower extremity edema. Neuro: Oriented X 3. Slow to respond, appears to be under the influence of drugs Course Course Course Narrative: 31-year-old male presents to the ER with ?stomach ache. ? Seen here last night for suicidal ideation and substance abuse, discharged a few hours prior to arrival he. He had lab work done last night that showed normal LFTs, unremarkable CBC. He is tolerating p.o. and denies any nausea, vomiting, diarrhea. Will hold off on repeat labs. Will check U tox. He appears to be in the influence of drugs. Initially denying, then reports doing ?a whole bunch of them. Reevaluation(s) Reevaluation #1: U tox positive for fentanyl. Mental status is clearing. He does not recall events earlier in his ER visit as he was intoxicated. He admits to using drugs. He does not want help. Does not believe in it. He is steady on his feet, oriented x3. Stable for d/c. MDM - Abdominal Pain Lab Data Labs: Lab Results 01/29/22 Range/Units 19:34 Urine Opiates Screen Not Detected (Not Detect) Urine Fentanyl Screen POSITIVE H (Not Detect) Ur Barbiturates Screen Not Detected (Not Detect) Ur Phencyclidine Scrn Not Detected (Not Detect) Ur Amphetamines Screen Not Detected (Not Detect) U Benzodiazepines Scrn Not Detected (Not Detect) Urine Cocaine Screen Not Detected (Not Detect) U Marijuana (THC) Screen POSITIVE H (Not Detect) Critical Care Time Critical Care Time Critical Care Time: No Discharge Plan Discharge Clinical Impression: Substance induced mood disorder Patient Disposition: Home, Self-Care Instructions: Polysubstance Abuse (ED), Opioid Use Disorder (ED) Additional Instructions: DO NOT USE FENTANYL OR HEROIN - IT CAN KILL YOU Recommend detox Prescriptions: No Action naproxen [Naprosyn] 500 mg tablet 500 mg PO BID Qty: 20 0RF
[2022-01-29 18:49] VITALS: BP 127/77; PULSE 83; RESP 14; O2SAT 97
--- NOTE | 2022-01-29 18:51 | PC.NURSE ---
When asked what patient took he does not answer. Unsure of how much or what he took
[2022-01-29 19:56] LABS: Amphetamine Screen Urine Not Detected (Not Detect); Barbiturates, Urine Not Detected (Not Detect); Benzodiazepines Screen Urine Not Detected (Not Detect); Cannabinoid Screen Urine POSITIVE (Not Detect); Cocaine Screen Urine Not Detected (Not Detect); Fentanyl, urine POSITIVE (Not Detect); Opiate Screen Urine Not Detected (Not Detect); Phencyclidine Screen Urine Not Detected (Not Detect)
[2022-01-29 21:08] VITALS: BP 126/81; PULSE 86; RESP 16; TEMP 36.6; O2SAT 96
== END 2022-01-29 22:31 | disposition home or self-care (01) ==
PROVIDERS: Physician Assistant; Emergency Provider Emergency Medicine Emergency Medical Services
DX: F11.14 Opioid abuse with opioid-induced mood disorder (principal); R45.851 Suicidal ideations; R10.12 Left upper quadrant pain; Z79.899 Other long term (current) drug therapy
CPT/HCPCS: 80307; 99283

== ENCOUNTER 2022-01-30 01:46 | Emergency (ER) | payer MEDICAID, SELFPAY ==
--- NOTE | 2022-01-30 01:50 | PC.NURSE ---
MD aware that pt presents @ Triage. Per MD, pt recently seen and evaluated for same complaint earlier in the night. MD to evaluate pt prior to placing orders.
[2022-01-30 01:58] VITALS: BP 126/80; PULSE 74; RESP 16; TEMP 36.6; O2SAT 95; BMI 24.2
--- NOTE | 2022-01-30 02:04 | PC.NURSE ---
pt returned to the ed with chest pain. pt was just discharged states he did no drugs but has chest pain to left side of his chest . skin pink warm and dry, no s/s of resp distress. pt has done this before just the other day leaves and comes back with chest pain shortly after being discharge. dr lilly will assess pt. waiting orders.
--- NOTE | 2022-01-30 03:19 | ED.CHESTPAIN ---
HPI - Chest Pain General Chief Complaint: Chest Pain Stated Complaint: chest pain Time Seen by Provider: 01/30/22 03:17 Source: patient Mode of arrival: ambulatory History of Present Illness HPI narrative: 31-year-old male who presents with complaints of left anterior chest wall pain that is at the same location as his previous visits, these are his words, and he states he has not gone to the pharmacy to cook pickled meat any of his medications. He denies fever, chills, headache, new cough, shortness of breath, palpitations, nausea/vomiting/abdominal pain. Related Data Previous Rx's Medication Instructions Recorded naproxen 500 mg tablet (Naprosyn) 500 mg PO BID #20 tab 01/25/22 Allergies Allergy/AdvReac Type Severity Reaction Status Date / Time Penicillins [PENICILLINS] Allergy Unknown UKNOWN Verified 01/29/22 00:26 haloperidol [From Haldol] Allergy Unknown Verified 01/29/22 00:26 Review of Systems Review of Systems: Pertinent positives and negatives as stated in HPI 10 point review of systems is otherwise negative. [facility] Past Medical History Source: nursing notes reviewed Social History Social History Advance Directives: No Advance Directives Information Provided: Yes Physical Exam Vital Signs: Vital Signs: Last Vital Signs Temp 98 F 01/30/22 01:58 Pulse 74 01/30/22 01:58 Resp 16 01/30/22 01:58 BP 126/80 01/30/22 01:58 Pulse Ox 95 01/30/22 01:58 BMI result Body Mass Index 24.2 VITAL SIGNS: Reviewed. GENERAL: Well developed, well nourished, in no acute distress. HEAD: Normocephalic/atraumatic EYES: PERRLA, EOMI EARS: Ext canals without abnormality, TMs non-bulging and non-erythematous NOSE: Nares patent bilateral OROPHARYNX: no oral lesions noted, posterior pharynx clear and non-erythematous without noted tonsillar enlargement/erythema/exudates NECK: Supple, no adenopathy LUNGS: Normal breath sounds. No adventitious sounds or accessory muscle use. SpO2<95> CARDIOVASCULAR: Regular rate and rhythm without noted murmurs ABDOMEN: Soft, non-tender, non-distended with bowel sounds. MUSCULOSKELETAL: No tenderness, deformities, or effusions noted on gross inspection. EXTREMITIES: No cyanosis, clubbing or edema. SKIN: Inspection of the skin reveals no rashes NEUROLOGIC: Alert and oriented x 4. Strength and sensation to light touch were grossly intact x 4. PSYCH: Flat affect Course Course Course Narrative: 31-year-old male with history and clinical presentation still consistent with costochondritis. All prior workups were reviewed, patient has not picked up his medications from the pharmacy and has no new complaints. He was provided with a lidocaine patch to the anterior chest wall and will be discharged home in stable condition. Discharge Plan Discharge Clinical Impression: Atypical chest pain, Costalchondritis Patient Disposition: Home, Self-Care Instructions: Costochondritis (ED) Additional Instructions: 1. Recommend that you cook pickled meat the medications that have been prescribed to you. 2. Follow-up with your primary care provider in the next 2-3 days. Return to the ER for worsening symptoms. Prescriptions: No Action naproxen [Naprosyn] 500 mg tablet 500 mg PO BID Qty: 20 0RF
[2022-01-30] MEDS: Lidocaine 4 % Patch ADH..PATCH 1 PATCH TRANSDERMA (03:47)
== END 2022-01-30 03:53 | disposition home or self-care (01) ==
PROVIDERS: Emergency Provider Student in an Organized Health Care Education/Training Program
DX: R07.89 Other chest pain (principal); M94.0 Chondrocostal junction syndrome [Tietze]; F17.200 Nicotine dependence, unspecified, uncomplicated
CPT/HCPCS: 99283

== ENCOUNTER 2022-02-02 00:43 | Emergency (ER) | payer OTHER, SELFPAY ==
[2022-02-02 00:52] VITALS: BP 129/79; PULSE 81; RESP 14; TEMP 36.8; O2SAT 98; BMI 24.2
[2022-02-02 01:15] LABS: Appearance Urine CLEAR; Basophils Percent Auto 0.2 % (0-2); Color Urine YELLOW; Eosinophils Absolute Auto 0.2 X10*3/uL (0.0-0.4); Eosinophils Percent Auto 1.6 % (0-4); Glucose Urine UA NEG (NEG); Hemoglobin 13.4 g/dl (14.0-18.0); Imm Gran Abs Auto 0.05 X10*3/uL (0.00-0.03); Imm Gran Pct Auto 0.4 % (0.0-0.4); Leukocyte Esterase Urine NEG (NEG); Lymphocytes Absolute Auto 3.1 X10*3/uL (1.2-4.9); Lymphocytes Percent Auto 25.4 % (20-40); MANUAL DIFF FLAG NO; Mean Corpuscular HGB Conc 33.5 g/dl (31.0-36.0); Mean Corpuscular Hemoglobin 29.9 pg (27.0-33.0); Mean Corpuscular Volume 89.3 fL (80.0-98.0); Monocytes Absolute Auto 1.1 X10*3/uL (0.1-1.2); Monocytes Percent Auto 8.8 % (2-11); Neutrophils Absolute Auto 7.7 x10*3/uL (2.0-8.3); Neutrophils Percent Auto 63.6 % (45-73); Nitrite Urine NEG (NEG); Platelet Count 293 X10*3/uL (160-400); Red Blood Count 4.48 X10*6/uL (4.60-5.80); Red Cell Distribution Width 12.9 % (11.0-16.0); Specific Gravity - Urine >= 1.030 (1.005-1.025); Urine Blood NEG (NEG); Urine Ketones NEG (NEG); Urine Protein NEG (NEG-TRACE); White Blood Count 12.1 X10*3/uL (4.8-10.8)
[2022-02-02 01:21] LABS: Calcium Phosphate Crystals Ur TRACE /LPF; RBC Urine 0-2 /HPF (0); WBC Urine 0-2 /HPF (0-4)
[2022-02-02 01:43] LABS: Albumin Level 4.2 g/dL (3.5-5.0); Alkaline Phosphatase 115 U/L (39-117); Anion Gap 12 (12-20); Bilirubin Total 0.4 mg/dL (0.0-1.0); Calcium 9.2 mg/dL (8.4-10.2); Carbon Dioxide 24 mmol/L (22-29); Chloride 107 mmol/L (96-108); Creatinine Clr Calc Pharmacy 104.8; Estimated Glomerular Filt Rate > 60; Glucose Random 94 mg/dL (60-115); Potassium 3.9 mmol/L (3.3-5.1); Sodium 139 mmol/L (135-145); Total Protein 7.4 g/dL (6.5-8.0)
[2022-02-02 01:51] LABS: Alanine Aminotransferase 26 U/L (0-40); Aspartate Amino Transferase 22 U/L (5-37); Bilirubin Direct < 0.2 mg/dL (0.0-0.5); Blood Urea Nitrogen 14 mg/dL (9-16); Lipase 74 U/L (8-78)
== END 2022-02-02 04:44 | disposition left against medical advice (07) ==
LOC: HO.ED 04:43
PROVIDERS: Emergency Provider Emergency Medicine
DX: R10.9 Unspecified abdominal pain (principal)
CPT/HCPCS: 36415; 80053; 81001; 82248; 83690; 85025; 99283

== ENCOUNTER 2022-02-02 19:58 | Emergency (ER) | payer OTHER, SELFPAY ==
[2022-02-02 20:06] VITALS: BP 116/71; PULSE 110; RESP 20; TEMP 37; O2SAT 94; BMI 25.0
--- NOTE | 2022-02-02 20:48 | ED.PSYCH ---
HPI - Psych General Chief Complaint: Psychiatric Symptoms Stated Complaint: SI Time Seen by Provider: 02/02/22 20:48 Source: patient Mode of arrival: ambulatory Limitations: no limitations History of Present Illness HPI Narrative: 31-year-old male with a history of substance induced mood disorders, active polysubstance abuse including fentanyl who presents to the ER for suicidal ideation. This is his 7th ER visit in the last 3 weeks. He presents today with vague suicidal ideation, he denies any specific plans. He states he has been feeling suicidal for a long time now and comes and goes. He has a lot of stress at home. He lives with his ?baby mama? but does not keep her up-to-date on his health issues. He denies any drug use today except for marijuana. MD complaint: suicidal ideation, feels depressed and substance abuse Onset (ago): unknown Duration: getting worse History of same: Yes Relieving factors: none Exacerbating factors: drug use Associated psychiatric symptoms: depression and suicidal ideation Associated symptoms: denies other symptoms Treatments prior to arrival: none If self harm: admits thoughts of self harm Related Data Previous Rx's Medication Instructions Recorded naproxen 500 mg tablet (Naprosyn) 500 mg PO BID #20 tab 01/25/22 Allergies Allergy/AdvReac Type Severity Reaction Status Date / Time Penicillins [PENICILLINS] Allergy Unknown [place] Verified 02/02/22 20:12 haloperidol [From Haldol] Allergy Unknown Verified 02/02/22 20:12 Review of Systems Review of Systems: Constitutional: No Fever, No Chills ENT/Mouth: No sore throat, No Rhinorrhea, No Swallowing Difficulty Eyes: No Eye Pain, No Swelling, No Redness Cardiovascular: No Chest Pain, No SOB, No Orthopnea, No Edema Respiratory: No Cough, No Sputum, No Wheezing, No dyspnea Gastrointestinal: No Nausea, No Vomiting, No Diarrhea, No abdominal Pain Genitourinary: No Dysuria, No Urinary Frequency, No Hematuria Musculoskeletal: No joint pain, No Myalgias Skin: No Skin Lesions, No rash Neuro: No Weakness, No Numbness, No Dizziness, No Headache Psych: + Anxiety/Panic, +Depression, +SI, NO HI, No AH, No VH Heme/Lymph: No Bruising, No Lymphadenopathy Endocrine: No Polyuria, No Polydipsia PMFSH Social History Social History Advance Directives: No Advance Directives Information Provided: Yes Physical Exam Vital Signs: Vital Signs: Last Vital Signs Temp 98.6 F 02/02/22 20:06 Pulse 110 H 02/02/22 20:06 Resp 20 02/02/22 20:06 BP 116/71 02/02/22 20:06 Pulse Ox 94 02/02/22 20:06 BMI result Body Mass Index 25.0 Appearance: Alert. Oriented X3. No acute distress. Eyes: Pupils equal, round and reactive to light. ENT: Pharynx normal. Neck: Normal inspection. Neck supple. CVS: Normal heart rate and rhythm. Pulses normal. Respiratory: No respiratory distress. Breath sounds normal. Abdomen: Soft and nontender. +BS x4 Skin: Skin warm and dry. Normal skin color. Normal skin turgor. No rashes. Extremities: No lower extremity edema. Neuro/psych: Oriented X 3. No motor deficit. No sensory deficit. CN II-XII intact. Flat affect, slow to respond. Uncooperative at times. Poor judgment Course Course Course Narrative: 31-year-old male with a history of substance induced mood disorder, polysubstance abuse who presents the ER with suicidal ideation. He has several visits recently for the same as well as for substance abuse. Will get U tox and have power and recovery shift engineer speak with him in the morning given his depression/SI are substance related. Will escalate to [facility] if clinically indicated. Physician observation started at 9:20pm. Patient placed in physician observation because patient is awaiting recovry public speaking coach evaluation. At the time observation was started patient's vital signs were stable. Patient is alert and oriented. Neuro exam is non-focal. CV: RRR and lungs are clear. Will continue to monitor. MDM - Psych Lab Data Labs: Lab Results 02/02/22 Range/Units 20:25 COVID-19 ([facility]) Negative (Negative) COVID-19 Clin Com See Note Discharge Plan Discharge Clinical Impression: Suicidal ideation Prescriptions: No Action naproxen [Naprosyn] 500 mg tablet 500 mg PO BID Qty: 20 0RF
[2022-02-02 21:01] LABS: COVID-19 Test Negative (Negative)
[2022-02-02 21:29] LABS: Amphetamine Screen Urine Not Detected (Not Detect); Barbiturates, Urine Not Detected (Not Detect); Benzodiazepines Screen Urine Not Detected (Not Detect); Cannabinoid Screen Urine POSITIVE (Not Detect); Cocaine Screen Urine Not Detected (Not Detect); Fentanyl, urine Not Detected (Not Detect); Opiate Screen Urine Not Detected (Not Detect); Phencyclidine Screen Urine Not Detected (Not Detect)
--- NOTE | 2022-02-03 07:04 | PC.NURSE ---
Patient slept through the night, no distress observed/reported, awaiting recovery agent consult for detox help, behavior appropriate, vss, currently not on any medication, will continue to monitor.
--- NOTE | 2022-02-03 07:24 | PC.NURSE ---
patient appears to remai asleep at present respirations are even and unlabored patient appears in no distress
--- NOTE | 2022-02-03 10:02 | MHC.RECOVSUP ---
Recovery Support note: Patient is a 31 year old [place]i speaking male who presented to [facility] reporting depression and SI. Patient has had numerous ED visits recently with similar presentation. This development writer met with patient to discuss substance use. Patient reports his substance use is not a problem, stating that his depression is the problem. Patient reports he hasn't been using any drugs and that he does not drink. When this development writer pointed out that he recently tested positive for fentanyl, patient stated yea but its not in my system anymore. Patient reports frustration regarding his difficulty connecting with outpatient providers. Discussed outpatient therapy, IOP, PHP, recovery coaching and ATS with patient. Patient declines referrals, stating he wants to go upstairs to get his medications sorted out. Patient is requesting to speak to [facility]. Discussed case with CARE Team, patient's RN and ED provider.
--- NOTE | 2022-02-03 13:34 | MHC.CARE ---
[facility] clinician, Rose, attempted to meet with patient several times, he would not engage and was by report upset and angry, swore at her about being asked questions. She stated that she informed him that he needed to cooperate to get help he said, I want to upstairs and that's all.
== END 2022-02-03 15:08 | disposition home or self-care (01) ==
PROVIDERS: Emergency Provider Internal Medicine
DX: R45.851 Suicidal ideations (principal); F19.10 Other psychoactive substance abuse, uncomplicated; Z20.822 Contact with and (suspected) exposure to COVID-19
CPT/HCPCS: 80307; 87635; 99283; 99284

== ENCOUNTER 2022-02-03 17:18 | Emergency (ER) | payer OTHER, SELFPAY ==
--- NOTE | 2022-02-03 | ECG_ITS ---
Test Reason : CHEST PAIN Blood Pressure : / mmHG Vent. Rate : 086 BPM Atrial Rate : 086 BPM P-R Int : 148 ms QRS Dur : 080 ms QT Int : 364 ms P-R-T Axes : 048 068 063 degrees QTc Int : 435 ms Normal sinus rhythm Normal ECG When compared with ECG of 25-JAN-2022 01:55, No significant change was found Referred By: Generic ED Physician Electronically Signed By:SANDY ISABLE MD
--- NOTE | ~2022-02-03 | XR_ITS ---
EXAMINATION: PORTABLE CHEST 1 VIEW CLINICAL INFORMATION: cp . COMPARISON: 01/25/2022. TECHNIQUE: Portable frontal view of the chest was obtained. FINDINGS: The lungs are well expanded. No focal infiltrate, effusion, edema, or pneumothorax. Cardiac and mediastinal silhouettes are within normal limits for technique. No acute bony abnormality seen. XR/XR chest 1V IMPRESSION: No evidence of acute disease.
[2022-02-03 17:20] VITALS: BP 113/71; PULSE 90; RESP 20; TEMP 36.4; O2SAT 97; BMI 25.8
--- NOTE | 2022-02-03 20:25 | ED.GENADULT ---
HPI - General Adult General Chief complaint: General Medical Stated complaint: chest pains Time Seen by Provider: 02/03/22 20:25 Source: patient Mode of arrival: ambulatory Limitations: other (Appears to be under the influence of drugs.) History of Present Illness HPI narrative: 31-year-old male with history of substance induced mood disorders, active polysubstance abuse including phenyl who presents to the ER for chest pain ? treatment for autism ?X1 day. Patient complains of substernal constant 7/10 nonradiating chest pain. Patient tells me it started suddenly, unable to tell me what makes it better or worse. He tells me he has no cardiac history and no medical problems. He does mention to me that he is homeless. I asked him why he was seen here yesterday, and patient tells me he does not remember being here yesterday. Patient appears to be under the influence of drugs. He denies shortness of breath, fevers, chills, nausea, vomiting, abdominal pain, headache, dizziness, weakness. Onset (ago): day(s) (1) Location: chest Radiation: non-radiation Severity: moderate Severity scale (1-10): 7 Quality: constant Pain Consistency: constant Relieving factors: none Exacerbating factors: none Associated symptoms: denies other symptoms Treatments prior to arrival: none Related Data Home Medications Medication Instructions Recorded Confirmed No Known Home Meds 02/02/22 02/02/22 Allergies Allergy/AdvReac Type Severity Reaction Status Date / Time Penicillins [PENICILLINS] Allergy Unknown UKNOWN Verified 02/02/22 20:12 haloperidol [From Haldol] Allergy Unknown Verified 02/02/22 20:12 Review of Systems Review of Systems: Constitutional : No Weight loss, No Fever, No Chills, No Fatigue, No Malaise ENT/Mouth : No sore throat, No Rhinorrhea Eyes: No Eye Pain, No Swelling, No Redness Cardiovascular : + Chest Pain, No SOB, No Dyspnea on Exertion, No Orthopnea, No Edema, No Palpitations Respiratory : No Cough, No Sputum, No Wheezing Gastrointestinal : No Nausea, No Vomiting, No Diarrhea, No Constipation, No abdominal Pain, No Hematochezia, No Melena Genitourinary : No Dysuria, No Urinary Frequency, No Hematuria, Musculoskeletal : No joint pain, No Myalgias, No Joint Swelling Skin : No Skin Lesions, No rash Neuro : No Weakness, No Numbness, No Dizziness, No Headache Psych : No Anxiety/Panic, No Depression All other systems reviewed and are negative Yes all other systems are reviewed and are negative [facility] Past Medical History Attestation statement: The following information was validated with the patient. Source: old records reviewed and nursing notes reviewed Social History Social History Advance Directives: No Advance Directives Information Provided: Yes Physical Exam ED Vital Signs: Vital Signs - 24 hr 02/03/22 17:20 Temperature 97.6 F Pulse Rate 90 Respiratory Rate 20 Blood Pressure 113/71 Pulse Oximetry 97 BMI result Body Mass Index 25.8 VSS Appearance: Alert.? Oriented X3.? No acute distress.? Bizarre affect. Head: Normocephalic, atraumatic, no step-offs or deformities Eyes: Pupils equal, round and reactive to light.?+ bilateral 4 mm dilated pupils ENT: Pharynx normal.? Neck: Normal inspection.? Neck supple.? CVS: Normal heart rate and rhythm.? Pulses normal.? Respiratory: No respiratory distress.? Breath sounds normal.? Abdomen: Soft and nontender.? Skin: Skin warm and dry.? Normal skin color.? Normal skin turgor.? Extremities: No lower extremity edema.? No calf ttp. 5/5 strength to bilateral upper and lower extremities Neuro: Oriented X 3.? No motor deficit.? No sensory deficit. CN 2-12 intact Course Reevaluation(s) Reevaluation #1: CBC within normal limits. Chemistry with no acute findings. Troponin negative, EKG nonischemic unlikely ACS. COVID negative. Urine pending. Time: 22:09 Reevaluation #2: Urine negative without signs of urine without signs of infection. Urine toxicology positive for marijuana, fentanyl. Ethanol negative. CRX with no acute findings. Plan at this time is to discharge patient home, unlikely ACS, unlikely PE. History and physical not consistent with dissection. Chest pain likely secondary to polysubstance abuse. Give patient worrisome signs and symptoms advised him to return if any of these arise. Comfortable discharge home At time of discharge patient's vital signs stable, feeling well, no complaints. Time: 22:43 Medical Decision Making MDM Narrative Medical decision making narrative: 2028 31-year-old male presenting to the ER with chest pain and requesting treatment for autism Physical exam significant for patient with bizarre affect, appears to be under the influence of drugs. He is also noted to have bilateral dilated pupils. Patient was here in the emergency department yesterday presented with polysubstance abuse and suicidal ideation Plan at this time labs, urine, EKG, troponin. We will rule out ACS, although unlikely. chest pain likely secondary to polysubstance abuse, anxiety. I do not suspect pna or chf on this patient PERC negative unlikley PE. Medical Records Medical records reviewed: Yes I reviewed the patient's medical records. Lab Data Lab results reviewed: Yes I reviewed the patient's lab results. Result diagrams: 02/03/22 20:54 02/03/22 20:54 Labs: Lab Results 02/03/22 02/03/22 02/03/22 Range/Units 20:54 20:54 20:54 WBC 10.6 (4.8-10.8) X10*3/uL RBC 4.49 L (4.60-5.80) X10*6/uL Hgb 13.4 L (14.0-18.0) g/dl Hct 40.2 L (42.0-52.0) % MCV 89.5 (80.0-98.0) fL MCH 29.8 (27.0-33.0) pg MCHC 33.3 (31.0-36.0) g/dl RDW 12.8 (11.0-16.0) % Plt Count 293 (160-400) X10*3/uL MPV 10.2 (9.4-12.4) fL Immature Gran % (Auto) 0.5 H (0.0-0.4) % Neut % (Auto) 64.7 (45-73) % Lymph % (Auto) 23.7 (20-40) % [place] % (Auto) 7.8 (2-11) % Eos % (Auto) 3.0 (0-4) % Baso % (Auto) 0.3 (0-2) % Lymph # (Auto) 2.5 (1.2-4.9) X10*3/uL [place] # (Auto) 0.8 (0.1-1.2) X10*3/uL Eos # (Auto) 0.3 (0.0-0.4) X10*3/uL Baso # (Auto) 0.0 (0.0-0.2) X10*3/uL Abs Immat Gran (auto) 0.05 H (0.00-0.03) X10*3/uL Absolute Neuts (auto) 6.9 (2.0-8.3) x10*3/uL Absolute Nucleated RBC 0.000 (0.0-0.012) X10*3/uL Nucleated RBC % (auto) 0.0 (0.0-0.2) /100WBC Sodium 140 (135-145) mmol/L Potassium 4.4 (3.3-5.1) mmol/L Chloride 108 (96-108) mmol/L Carbon Dioxide 24 (22-29) mmol/L Anion Gap 12 (12-20) BUN 14 (9-16) mg/dL Creatinine 0.82 (0.5-1.4) mg/dL Estim Creat Clear Calc 118.8 Estimated GFR > 60 Random Glucose 80 (60-115) mg/dL Calcium 8.8 (8.4-10.2) mg/dL Total Bilirubin < 0.2 (0.0-1.0) mg/dL AST 22 (5-37) U/L ALT 26 (0-40) U/L Alkaline Phosphatase 120 H (39-117) U/L Troponin I High Sens < 3.5 (<3.5-35.0) ng/L Total Protein 7.2 (6.5-8.0) g/dL Albumin 4.1 (3.5-5.0) g/dL Urine Color Urine Appearance Urine pH (5.0-8.0) Ur Specific [place] (1.005-1.025) Urine Protein (NEG-TRACE) MG/DL Urine Glucose (UA) (NEG) MG/DL Urine Ketones (NEG) MG/DL Urine Blood (NEG) Urine Nitrite (NEG) Ur Leukocyte Esterase (NEG) Urine Opiates Screen (Not Detect) Urine Fentanyl Screen (Not Detect) Ur Barbiturates Screen (Not Detect) Ur Phencyclidine Scrn (Not Detect) Ur Amphetamines Screen (Not Detect) U Benzodiazepines Scrn (Not Detect) Urine Cocaine Screen (Not Detect) U Marijuana (THC) Screen (Not Detect) Ethyl Alcohol mg/dL 02/03/22 02/03/22 02/03/22 Range/Units 21:49 21:49 21:49 WBC (4.8-10.8) X10*3/uL RBC (4.60-5.80) X10*6/uL Hgb (14.0-18.0) g/dl Hct (42.0-52.0) % MCV (80.0-98.0) fL MCH (27.0-33.0) pg MCHC (31.0-36.0) g/dl RDW (11.0-16.0) % Plt Count (160-400) X10*3/uL MPV (9.4-12.4) fL Immature Gran % (Auto) (0.0-0.4) % Neut % (Auto) (45-73) % Lymph % (Auto) (20-40) % [place] % (Auto) (2-11) % Eos % (Auto) (0-4) % Baso % (Auto) (0-2) % Lymph # (Auto) (1.2-4.9) X10*3/uL [place] # (Auto) (0.1-1.2) X10*3/uL Eos # (Auto) (0.0-0.4) X10*3/uL Baso # (Auto) (0.0-0.2) X10*3/uL Abs Immat Gran (auto) (0.00-0.03) X10*3/uL Absolute Neuts (auto) (2.0-8.3) x10*3/uL Absolute Nucleated RBC (0.0-0.012) X10*3/uL Nucleated RBC % (auto) (0.0-0.2) /100WBC Sodium (135-145) mmol/L Potassium (3.3-5.1) mmol/L Chloride (96-108) mmol/L Carbon Dioxide (22-29) mmol/L Anion Gap (12-20) BUN (9-16) mg/dL Creatinine (0.5-1.4) mg/dL Estim Creat Clear Calc Estimated GFR Random Glucose (60-115) mg/dL Calcium (8.4-10.2) mg/dL Total Bilirubin (0.0-1.0) mg/dL AST (5-37) U/L ALT (0-40) U/L Alkaline Phosphatase (39-117) U/L Troponin I High Sens (<3.5-35.0) ng/L Total Protein (6.5-8.0) g/dL Albumin (3.5-5.0) g/dL Urine Color YELLOW Urine Appearance CLEAR Urine pH 5.5 (5.0-8.0) Ur Specific [place] >= 1.030 H (1.005-1.025) Urine Protein NEG (NEG-TRACE) MG/DL Urine Glucose (UA) NEG (NEG) MG/DL Urine Ketones NEG (NEG) MG/DL Urine Blood NEG (NEG) Urine Nitrite NEG (NEG) Ur Leukocyte Esterase NEG (NEG) Urine Opiates Screen Not Detected (Not Detect) Urine Fentanyl Screen POSITIVE H (Not Detect) Ur Barbiturates Screen Not Detected (Not Detect) Ur Phencyclidine Scrn Not Detected (Not Detect) Ur Amphetamines Screen Not Detected (Not Detect) U Benzodiazepines Scrn Not Detected (Not Detect) Urine Cocaine Screen Not Detected (Not Detect) U Marijuana (THC) Screen POSITIVE H (Not Detect) Ethyl Alcohol < 10 mg/dL ECG Data Attestation: I personally reviewed and interpreted this ECG as follows: Prior ECG tracings: available for review Interpretation: Ventricular rate of 86, KS normal, QRS normal, QT/QTC normal. EKG shows normal sinus rhythm no ST elevations or inversions concerning for ischemia. Significant changes when compared to EKG on 01/25/2022. Critical Care Time Critical Care Time Critical Care Time: No Discharge Plan Discharge Clinical Impression: Chest pain not due to acute coronary syndrome, Active substance abuse Patient Disposition: Home, Self-Care Instructions: Polysubstance Abuse (ED), Chest Wall Pain (ED) Additional Instructions: Take your medications as prescribed. If you were prescribed antibiotics today, it is important that you take your medication to their entirety, do not skip any doses, do not finish them early. Follow-up with your primary care provider this week. Follow-up with cardiology of these symptoms do not subside in a week or 2 Return to the emergency department with new or worsening symptoms. Such as fevers, chills, chest pain, shortness of breath, nausea, vomiting, dizziness, headache, vision changes, lethargy In case of emergency call 911 Your labs and EKG were reassuring. Prescriptions: No Action No Known Home Meds 0RF Referrals: Physician,None [Primary Care Provider] - 2 days Latrell Chau MD [Physician] - 2 days Stand Alone Forms: Work/School Release
[2022-02-03 20:59] LABS: MANUAL DIFF FLAG NO
[2022-02-03 21:07] LABS: Basophils Percent Auto 0.3 % (0-2); Eosinophils Absolute Auto 0.3 X10*3/uL (0.0-0.4); Hematocrit 40.2 % (42.0-52.0); Hemoglobin 13.4 g/dl (14.0-18.0); Imm Gran Abs Auto 0.05 X10*3/uL (0.00-0.03); Imm Gran Pct Auto 0.5 % (0.0-0.4); Lymphocytes Absolute Auto 2.5 X10*3/uL (1.2-4.9); Lymphocytes Percent Auto 23.7 % (20-40); Mean Corpuscular HGB Conc 33.3 g/dl (31.0-36.0); Mean Corpuscular Hemoglobin 29.8 pg (27.0-33.0); Mean Corpuscular Volume 89.5 fL (80.0-98.0); Mean Platelet Volume 10.2 fL (9.4-12.4); Monocytes Absolute Auto 0.8 X10*3/uL (0.1-1.2); Monocytes Percent Auto 7.8 % (2-11); Neutrophils Absolute Auto 6.9 x10*3/uL (2.0-8.3); Neutrophils Percent Auto 64.7 % (45-73); Platelet Count 293 X10*3/uL (160-400); Red Blood Count 4.49 X10*6/uL (4.60-5.80); Red Cell Distribution Width 12.8 % (11.0-16.0); White Blood Count 10.6 X10*3/uL (4.8-10.8)
[2022-02-03 21:39] LABS: Alanine Aminotransferase 26 U/L (0-40); Albumin Level 4.1 g/dL (3.5-5.0); Alkaline Phosphatase 120 U/L (39-117); Anion Gap 12 (12-20); Aspartate Amino Transferase 22 U/L (5-37); Bilirubin Total < 0.2 mg/dL (0.0-1.0); Blood Urea Nitrogen 14 mg/dL (9-16); Calcium 8.8 mg/dL (8.4-10.2); Carbon Dioxide 24 mmol/L (22-29); Chloride 108 mmol/L (96-108); Creatinine Clr Calc Pharmacy 118.8; Estimated Glomerular Filt Rate > 60; Glucose Random 80 mg/dL (60-115); Potassium 4.4 mmol/L (3.3-5.1); Sodium 140 mmol/L (135-145); Total Protein 7.2 g/dL (6.5-8.0); Troponin-I High Sensitivity < 3.5 ng/L (<3.5-35.0)
[2022-02-03 22:00] VITALS: BP 109/64; PULSE 72; RESP 14; O2SAT 98
[2022-02-03 22:20] LABS: Appearance Urine CLEAR; Color Urine YELLOW; Glucose Urine UA NEG (NEG); Leukocyte Esterase Urine NEG (NEG); Nitrite Urine NEG (NEG); PH 5.5 (5.0-8.0); Specific Gravity - Urine >= 1.030 (1.005-1.025); Urine Blood NEG (NEG); Urine Ketones NEG (NEG); Urine Protein NEG (NEG-TRACE)
[2022-02-03 22:25] LABS: Ethanol < 10 mg/dL
[2022-02-03 22:28] LABS: Amphetamine Screen Urine Not Detected (Not Detect); Barbiturates, Urine Not Detected (Not Detect); Benzodiazepines Screen Urine Not Detected (Not Detect); Cannabinoid Screen Urine POSITIVE (Not Detect); Cocaine Screen Urine Not Detected (Not Detect); Fentanyl, urine POSITIVE (Not Detect); Opiate Screen Urine Not Detected (Not Detect); Phencyclidine Screen Urine Not Detected (Not Detect)
[2022-02-03 22:44] LABS: COVID-19 Test Negative (Negative)
== END 2022-02-03 22:58 | disposition home or self-care (01) ==
PROVIDERS: Physician Assistant; Emergency Provider Emergency Medicine
DX: R07.89 Other chest pain (principal); F11.10 Opioid abuse, uncomplicated; F19.10 Other psychoactive substance abuse, uncomplicated; Z20.822 Contact with and (suspected) exposure to COVID-19; Z79.899 Other long term (current) drug therapy
CPT/HCPCS: 36415; 71045; 80053; 80307; 81003; 82077; 84484; 85025; 87635; 93005; 99284

== ENCOUNTER 2022-02-07 00:26 | Emergency (ER) | payer OTHER, SELFPAY ==
--- NOTE | ~2022-02-07 | XR_ITS ---
EXAMINATION: XR CHEST CLINICAL INFORMATION: Chest pain COMPARISON: 02/03/2022 TECHNIQUE: 2 views of the chest were obtained. FINDINGS: Normal symmetric lung volumes. No parenchymal consolidation. No pleural effusion. No pneumothorax. Cardiomediastinal silhouette and pulmonary vascularity are within normal limits. No acute osseous abnormalities. XR/XR chest 2V IMPRESSION: No acute findings
--- NOTE | ~2022-02-07 | XR_ITS ---
EXAMINATION: XR FOREARM, RIGHT CLINICAL INFORMATION: Pain COMPARISON: None TECHNIQUE: AP and lateral views of the right forearm were obtained. FINDINGS: Plate and screws present across a healing fracture of the mid ulnar diaphysis. There is sclerosis at the fracture site and endosteal bridging, however the fracture line is still visible. There is apex lateral angulation across the fracture site. No evidence of hardware failure or complication. Soft tissues unremarkable. XR/XR forearm RT 2V IMPRESSION: No acute fracture or dislocation. Previous ORIF of a healing fracture of the mid ulnar diaphysis
[2022-02-07 00:35] VITALS: BP 113/74; BP 123/70; PULSE 100; PULSE 113; RESP 18; TEMP 37.1; O2SAT 98; O2SAT 99; BMI 25.1
--- NOTE | 2022-02-07 00:38 | ECG_ITS ---
Test Reason : cp Blood Pressure : / mmHG Vent. Rate : 098 BPM Atrial Rate : 098 BPM P-R Int : 150 ms QRS Dur : 084 ms QT Int : 350 ms P-R-T Axes : 050 061 054 degrees QTc Int : 446 ms Normal sinus rhythm Possible Left atrial enlargement Borderline ECG When compared with ECG of 03-FEB-2022 17:21, No significant change was found Referred By: Lucita Bernstein Electronically Signed By:TAMIKO BROWN
--- NOTE | 2022-02-07 00:42 | ED.CHESTPAIN ---
HPI - Chest Pain General Chief Complaint: Chest Pain Stated Complaint: abd pain Time Seen by Provider: 02/07/22 00:33 Source: patient and old records reviewed Mode of arrival: EMS Limitations: no limitations History of Present Illness MD complaint: chest pain Onset (ago): year(s) Timing of current episode: episodic Prior episodes: Yes Onset: during rest and during exertion Pain location: left chest Pain radiation: none Severity: moderate Quality: aching Relieving factors: nothing Exacerbating factors: movement Associated symptoms: other (denies) Treatment prior to arrival: none Related Data Home Medications Medication Instructions Recorded Confirmed No Known Home Meds 02/02/22 02/02/22 Allergies Allergy/AdvReac Type Severity Reaction Status Date / Time Penicillins [PENICILLINS] Allergy Unknown [place] Verified 02/02/22 20:12 haloperidol [From Haldol] Allergy Unknown Verified 02/02/22 20:12 Review of Systems Review of Systems: Constitutional : No Weight loss, No Fever, No Chills ENT/Mouth : No sore throat, No Rhinorrhea Eyes: No Eye Pain, No Swelling Cardiovascular : pos Chest Pain, no SOB, no Dyspnea on Exertion, No Orthopnea, No Edema, No Palpitations Respiratory : No Cough, No Sputum Gastrointestinal : no Nausea, No Vomiting, No Diarrhea, No abdominal Pain, No Hematochezia, No Melena Genitourinary : No Dysuria, No Urinary Frequency Musculoskeletal : No joint pain, No Myalgias, No Joint Swelling Skin : No Skin Lesions, No rash Neuro : No Weakness, No Numbness, No Dizziness, No Headache Psych : No Anxiety/Panic, No Depression Heme/Lymph: No Bruising, No Lymphadenopathy Endocrine : No Polyuria, No Polydipsia All other systems reviewed and are negative [facility] Past Medical History Attestation statement: The following information was validated with the patient. Medical History Mood disorder Social History Social History Alcohol intake: never Patient Tobacco Use Status: Current everyday Tobacco user Substance Use Type: Crack/Cocaine and Marijuana Advance Directives: No Physical Exam Vital Signs: Vital Signs: Last Vital Signs Temp 98.7 F 02/07/22 00:57 Pulse 100 02/07/22 00:57 Resp 16 02/07/22 00:57 BP 113/74 02/07/22 00:57 Pulse Ox 99 02/07/22 00:57 O2 Del Method 02/07/22 00:57 BMI result Body Mass Index 25.1 Appearance: Alert. Oriented X3. No acute distress. Flat affect want to have a sleepover with me. Eyes: Pupils equal, round and reactive to light. ENT: Pharynx normal. Neck: Normal inspection. Neck supple. CVS: Normal heart rate and rhythm. Pulses normal. Respiratory: No respiratory distress. Breath sounds normal. Chest wall: no deformity or trauma Abdomen: Soft and non-tender. Skin: Skin warm and dry. Normal skin color. Normal skin turgor. Extremities: No lower extremity edema. R forearm area of old fracture - chronic deformity I never wore the cast. Neuro: Oriented X 3. No motor deficit. No sensory deficit. MDM - Chest Pain MDM Narrative Medical decision making narrative: 31 yo male with mood disorder here with atypical chest pain of months long duration which always bothers him at work - no trauma, no cough, just seen for same on 02/03. He has no hypoxia or signs of DVT to suggest PE. Just had normal EKG and negative troponins and states this pain is always there (has been seen here in December as well with pain had L rib films) with rest or exertion seems atypical for ACS, given chronicity doubt PE as well. Will obtain CXR and EKG. He also c/o R forearm deformity s/p R arm fracture that he took the cast off two days later post op. ECG Data ECG #1: Attestation: I personally reviewed and interpreted this ECG as follows: ECG interpretation date: 02/07/22 ECG interpretation time: :02 Interpretation: Rate: 98 Rhythm: NSR [place]: normal Normal P waves. Normal ALONSO. Normal QRS complex. ST T wave : normal no MARY qTC: normal prior studies: no acute ischemia The study has been interpreted contemporaneously by me. . Discharge Plan Discharge Clinical Impression: Atypical chest pain Patient Disposition: Home, Self-Care Instructions: Chest Pain (ED) Additional Instructions: return to ED for any worsening symptoms or concerns if your arm still bothers you - you can talk to your doctor or the surgeon who performed the procedure Plate and screws present across a healing fracture of the mid ulnar diaphysis. There is sclerosis at the fracture site and endosteal bridging, however the fracture line is still visible. There is apex lateral angulation across the fracture site. No evidence of hardware failure or complication. Soft tissues unremarkable. XR/XR forearm RT 2V IMPRESSION: No acute fracture or dislocation. Previous ORIF of a healing fracture of the mid ulnar diaphysis Prescriptions: No Action No Known Home Meds Interventions: ED Discharge Assessment Last Done: 02/07/22 01:38 Discharge Date/Time: 02/07/22 01:52
[2022-02-07 00:57] VITALS: BP 113/74; PULSE 100; RESP 16; TEMP 37.1; O2SAT 99
== END 2022-02-07 01:52 | disposition home or self-care (01) ==
LOC: HO.ED 01:39
PROVIDERS: Emergency Provider Emergency Medicine
DX: R07.89 Other chest pain (principal); F17.200 Nicotine dependence, unspecified, uncomplicated; F19.10 Other psychoactive substance abuse, uncomplicated
CPT/HCPCS: 71046; 73090; 93005; 99283; 99284

== ENCOUNTER 2022-02-07 03:02 | Emergency (ER) | payer OTHER, SELFPAY ==
--- NOTE | 2022-02-07 03:06 | ED.PSYCH ---
HPI - Psych General Chief Complaint: ETOH/Substance Use Stated Complaint: Crisis Time Seen by Provider: 02/07/22 03:06 Source: patient Mode of arrival: EMS Limitations: no limitations History of Present Illness HPI Narrative: just seen for chest pain was on the phone the whole time denied any crisis complaints stated he had a place to live now called 911 after discharge for MD complaint: substance abuse Onset (ago): minute(s) (since discharge) Duration: constant History of same: Yes Relieving factors: none Exacerbating factors: drug use Context: other (admits to getting angelica dust from some delfino ) Associated psychiatric symptoms: none Associated symptoms: denies other symptoms Treatments prior to arrival: none Related Data Home Medications Medication Instructions Recorded Confirmed No Known Home Meds 02/02/22 02/02/22 Allergies Allergy/AdvReac Type Severity Reaction Status Date / Time Penicillins [PENICILLINS] Allergy Unknown [place] Verified 02/02/22 20:12 haloperidol [From Haldol] Allergy Unknown Verified 02/02/22 20:12 Review of Systems Review of Systems: ROS unable to be obtained due to intoxication and laughing PMFSH Past Medical History Medical History Mood disorder Social History Social History Alcohol intake: never Patient Tobacco Use Status: Current everyday Tobacco user Substance Use Type: Crack/Cocaine and Marijuana Advance Directives: No Physical Exam Vital Signs: Vital Signs: Last Vital Signs Temp 98.5 F 02/07/22 03:13 Pulse 101 H 02/07/22 03:13 Resp 20 02/07/22 03:13 BP 137/78 02/07/22 03:13 Pulse Ox 98 02/07/22 03:13 O2 Del Method 02/07/22 03:13 BMI result Body Mass Index 25.8 Appearance: more sedate and calm than before. Oriented to person and place. No acute distress. Eyes: Pupils equal, round and reactive to light. nystagmus noted, eyes are bloodshot ENT: Pharynx normal. atraumatic Neck: Normal inspection. Neck supple. CVS: tachcyardic heart rate and rhythm. Pulses normal. Respiratory: No respiratory distress. Breath sounds normal. Abdomen: Soft and non-tender. Skin: Skin warm and dry. Normal skin color. Normal skin turgor. Extremities: No lower extremity edema. No calf ttp Neuro: Oriented to person and place. No motor deficit. No sensory deficit. Course Course Course Narrative: patient is now more awake, alert and oriented x 3, GCS 15, steady gait, no SI, he is demanding to leave patient walked out of department MDM - Psych MDM Narrative Medical decision making narrative: 31 yo male with hx of substance abuse just left here and now is under the influence with nystagmus and mild sedation after he admits getting angelica dust from someone. He will need to be observed until more sober. No SI, no trauma. Lab Data Labs: Lab Results 02/07/22 Range/Units 03:22 COVID-19 (SYLVAIN) Negative (Negative) COVID-19 Clin Com See Note Discharge Plan Discharge Clinical Impression: PCP intoxication Patient Disposition: Elopement Instructions: Polysubstance Abuse (ED) Additional Instructions: return to ED for any worsening symptoms or concerns Prescriptions: No Action No Known Home Meds
[2022-02-07 03:13] VITALS: BP 137/78; PULSE 101; RESP 20; TEMP 36.9; O2SAT 98; BMI 25.8
[2022-02-07 03:41] LABS: COVID-19 Test Negative (Negative); IDNOW Serial# 55D5AD1C
== END 2022-02-07 05:26 | disposition left against medical advice (07) ==
PROVIDERS: Emergency Provider Emergency Medicine
DX: F16.120 Hallucinogen abuse with intoxication, uncomplicated (principal); F19.10 Other psychoactive substance abuse, uncomplicated; Z20.822 Contact with and (suspected) exposure to COVID-19
CPT/HCPCS: 87635; 99282; 99283

== ENCOUNTER 2022-02-11 13:22 | Emergency (ER) | payer OTHER, SELFPAY ==
--- NOTE | ~2022-02-11 | XR_ITS ---
EXAMINATION: XR CHEST CLINICAL INFORMATION: Chest pain COMPARISON: Previous chest x-ray January 2022 TECHNIQUE: Frontal view of the chest was obtained. FINDINGS: No significant abnormality is noted involving the heart, lungs, mediastinum, bony thorax or soft tissues. XR/XR chest 1V IMPRESSION: Unremarkable examination.
--- NOTE | 2022-02-11 13:29 | ECG_ITS ---
Test Reason : CHEST PAIN Blood Pressure : / mmHG Vent. Rate : 096 BPM Atrial Rate : 096 BPM P-R Int : 150 ms QRS Dur : 084 ms QT Int : 354 ms P-R-T Axes : 055 061 051 degrees QTc Int : 447 ms Normal sinus rhythm Normal ECG When compared with ECG of 07-FEB-2022 00:43, No significant change was found Referred By: Generic ED Physician Electronically Signed By:
[2022-02-11 13:33] VITALS: BP 111/66; PULSE 99; RESP 18; TEMP 37.1; O2SAT 100; BMI 24.2
[2022-02-11 13:45] LABS: MANUAL DIFF FLAG NO
[2022-02-11 13:47] LABS: Basophils Percent Auto 0.4 % (0-2); Eosinophils Absolute Auto 0.4 X10*3/uL (0.0-0.4); Eosinophils Percent Auto 3.7 % (0-4); Hematocrit 34.7 % (42.0-52.0); Hemoglobin 11.7 g/dl (14.0-18.0); Imm Gran Abs Auto 0.03 X10*3/uL (0.00-0.03); Imm Gran Pct Auto 0.3 % (0.0-0.4); Lymphocytes Percent Auto 29.3 % (20-40); Mean Corpuscular HGB Conc 33.7 g/dl (31.0-36.0); Mean Corpuscular Hemoglobin 29.9 pg (27.0-33.0); Mean Corpuscular Volume 88.7 fL (80.0-98.0); Mean Platelet Volume 10.2 fL (9.4-12.4); Monocytes Percent Auto 9.3 % (2-11); Neutrophils Absolute Auto 5.9 x10*3/uL (2.0-8.3); Platelet Count 224 X10*3/uL (160-400); Red Blood Count 3.91 X10*6/uL (4.60-5.80); Red Cell Distribution Width 12.9 % (11.0-16.0); White Blood Count 10.4 X10*3/uL (4.8-10.8)
[2022-02-11 14:00] LABS: Anion Gap 13 (12-20); Blood Urea Nitrogen 7 mg/dL (9-16); Calcium 8.6 mg/dL (8.4-10.2); Carbon Dioxide 23 mmol/L (22-29); Chloride 102 mmol/L (96-108); Creatinine Clr Calc Pharmacy 113.3; Estimated Glomerular Filt Rate > 60; Glucose Random 143 mg/dL (60-115); Potassium 3.8 mmol/L (3.3-5.1); Sodium 134 mmol/L (135-145)
[2022-02-11 14:07] LABS: Troponin-I High Sensitivity < 3.5 ng/L (<3.5-35.0)
--- NOTE | 2022-02-11 18:42 | ED_ITS ---
HPI - Chest Pain General Chief Complaint: Chest Pain Stated Complaint: Suicidal Time Seen by Provider: 02/11/22 18:42 Source: patient Mode of arrival: ambulatory Limitations: no limitations History of Present Illness HPI narrative: Patient presents to the emergency department for evaluation of chest pain she reports has been present for a couple of hours.. Pain is been constant, felt to the left lower chest, states it does not move or radiate anywhere. Denies any fall or possible injury. He is unable to identify exacerbating or alleviating factors. Denies any associated dizziness, lightheadedness, headache, neck pain palpitations, shortness of breath, difficulty breathing, nausea, vomiting, abdominal pain numbness or tingling of the extremities, or weakness. Patient was initially acting very bizarre in triage, reporting to staff thoughts of homicidal gestures, offering drugs to staff, seeking places to purchase drugs etc, patient with a known history of drug abuse, denies drug usage today. At th e time of my exam, he reports suicidal ideations, he is very vague, does not endorse any specific plan. MD complaint: chest pain Onset (ago): hour(s) Timing of current episode: constant Prior episodes: Yes Pain radiation: none Treatment prior to arrival: none Related Data Home Medications Medication Instructions Recorded Confirmed No Known Home Meds 02/02/22 02/02/22 Allergies Allergy/AdvReac Type Severity Reaction Status Date / Time Penicillins [PENICILLINS] Allergy Unknown NOWN Verified 02/02/22 20:12 haloperidol [From Haldol] Allergy Unknown Verified 02/02/22 20:12 Review of Systems Review of Systems: Constitutional : No Weight loss, No Fever, No Chills ENT/Mouth :? No sore throat, No Rhinorrhea Eyes: No Eye Pain, No Swelling Cardiovascular : pos Chest Pain, no SOB, no Dyspnea on Exertion, No Orthopnea, No Edema, No Palpitations Respiratory : No Cough, No Sputum Gastrointestinal : pos Nausea, No Vomiting, No Diarrhea, No abdominal Pain, No Hematochezia, No Melena Genitourinary : No Dysuria, No Urinary Frequency Musculoskeletal : No joint pain, No Myalgias, No Joint Swelling Skin : No Skin Lesions, No rash Neuro : No Weakness, No Numbness, No Dizziness, No Headache Psych : No Anxiety/Panic, positive Depression, positive suicidal ideation. Denies homicidal ideations. Heme/Lymph: No Bruising, No Lymphadenopathy Endocrine : No Polyuria, No Polydipsia Yes all other systems are reviewed and are negative [facility] Past Medical History Attestation statement: The following information was validated with the patient. Source: old records reviewed Medical History Mood disorder Social History Social History Alcohol intake: never Patient Tobacco Use Status: Current everyday Tobacco user Substance Use Type: Crack/Cocaine and Marijuana Advance Directives: No Advance Directives Information Provided: No Physical Exam Vital Signs: Vital Signs: Last Vital Signs Temp 98.8 F 02/11/22 13:33 Pulse 99 02/11/22 13:33 Resp 18 02/11/22 13:33 BP 111/66 02/11/22 13:33 Pulse Ox 100 02/11/22 13:33 O2 Del Method 02/11/22 13:33 BMI result Body Mass Index 24.2 Vital signs have been reviewed as normal and appeared to be correct. Blood pressure normal.? Heart rate normal.? Respiration rate normal. Temperature normal.? Oxygen saturation normal. Appearance: Alert.?Oriented to person, place and time. Bizarre affect, appearing under the influence of drugs. No acute distress. Eyes: Pupils equal, round and reactive to light.? ENT: Pharynx normal.?? Neck: Normal inspection.? Neck supple.?? CVS: Heart sounds normal. Normal heart rate and rhythm.? Pulses normal.?? Respiratory: No respiratory distress.? Lung sounds clear to auscultation bilaterally?? Abdomen: Soft and non-tender. Normoactive bowel sounds. No pulsatile mass.?? Skin: Skin warm and dry.? Normal skin color.? Extremities: No lower extremity edema.? Neuro: Moves all extremities spontaneously. Sensation intact bilaterally. CN II- XII intact. No focal neuro deficits. Ambulates with normal steady gait. Course Course Course Narrative: Patient is a 31-year-old male with a past medical history of mood disorder, polysubstance abuse, presented to the emergency department for evaluation of chest pain, initially having a very bizarre affect, seems to be under the influence of drugs. Serum labs revealed an overall unremarkable CBC, normocytic anemia consistent with baseline, BMP is overall unremarkable. Troponin <3.5, EKG reveals normal sinus rhythm, no acute ischemic findings, HEART score 0, unlikely ACS. Chest x-ray reveals no acute cardiopulmonary process, not consistent with pneumonia, pulmonary congestion. Wells/perc negative unlikely to be pulmonary embolism. Suspect pain to be of muscular nature at this time, patient agreeable to taking Tylenol. Drug of abuse screen is pending at this time. At the time of exam patient began expressing suicidal ideations, vague, no specific plan, patient to be changed into hospital attire, referred to [facility] crisis for evaluation. Reevaluation(s) Reevaluation #1: Patient placed in physician observation at this time as he will require additional time to be evaluated by in crisis for suicidal ideations. He is in no apparent distress, respirations are regular even and nonlabored. Time: 20:53 [facility] - Chest Pain Medical Records Data Attestation: I reviewed the patient's medical records. Lab Data Attestation: I reviewed the patient's lab results. Result diagrams: 02/11/22 13:37 02/11/22 13:37 Labs: Lab Results 02/11/22 02/11/22 02/11/22 Range/Units 13:37 13:37 13:37 WBC 10.4 (4.8-10.8) X10*3/uL RBC 3.91 L (4.60-5.80) X10*6/uL Hgb 11.7 L (14.0-18.0) g/dl Hct 34.7 L (42.0-52.0) % MCV 88.7 (80.0-98.0) fL MCH 29.9 (27.0-33.0) pg MCHC 33.7 (31.0-36.0) g/dl RDW 12.9 (11.0-16.0) % Plt Count 224 (160-400) X10*3/uL MPV 10.2 (9.4-12.4) fL Immature Gran % (Auto) 0.3 (0.0-0.4) % Neut % (Auto) 57.0 (45-73) % Lymph % (Auto) 29.3 (20-40) % [place] % (Auto) 9.3 (2-11) % Eos % (Auto) 3.7 (0-4) % Baso % (Auto) 0.4 (0-2) % Lymph # (Auto) 3.0 (1.2-4.9) X10*3/uL [place] # (Auto) 1.0 (0.1-1.2) X10*3/uL Eos # (Auto) 0.4 (0.0-0.4) X10*3/uL Baso # (Auto) 0.0 (0.0-0.2) X10*3/uL Abs Immat Gran (auto) 0.03 (0.00-0.03) X10*3/uL Absolute Neuts (auto) 5.9 (2.0-8.3) x10*3/uL Absolute Nucleated RBC 0.000 (0.0-0.012) X10*3/uL Nucleated RBC % (auto) 0.0 (0.0-0.2) /100WBC Sodium 134 L (135-145) mmol/L Potassium 3.8 (3.3-5.1) mmol/L Chloride 102 (96-108) mmol/L Carbon Dioxide 23 (22-29) mmol/L Anion Gap 13 (12-20) BUN 7 L (9-16) mg/dL Creatinine 0.86 (0.5-1.4) mg/dL Estim Creat Clear Calc 113.3 Estimated GFR > 60 Random Glucose 143 H D (60-115) mg/dL Calcium 8.6 (8.4-10.2) mg/dL Troponin I High Sens < 3.5 (<3.5-35.0) ng/L Imaging Data Chest x-ray: Radiologist's impression: XR/XR chest 1V IMPRESSION: Unremarkable examination. ECG Data ECG #1: Attestation: I personally reviewed and interpreted this ECG as follows: ECG interpretation date: 02/11/22 Prior ECG tracings: available for review Interpretation: Rate: 96 Rhythm:? Normal sinus rhythm [place]:? Normal Normal P waves.? Normal ALONSO.?? Normal QRS complex.?? ST T wave :??No ST elevation, no ST depression, no T-wave inversion qTC: 447 prior studies:?02/07/22 The study has been interpreted contemporaneously by me. Discharge Plan Discharge Clinical Impression: Chest pain, Suicidal ideation Patient Disposition: Still a Patient Prescriptions: No Action No Known Home Meds
[2022-02-11] MEDS: Acetaminophen 325 MG TABLET 975 MG PO (20:08)
[2022-02-11 22:12] VITALS: BMI 24.5
[2022-02-11 23:29] VITALS: RESP 16
[2022-02-11 23:37] LABS: COVID-19 Test Negative (Negative); IDNOW Serial# 55D5AD1C
[2022-02-12] VITALS: RESP 16
[2022-02-12 01:54] VITALS: PULSE 92; RESP 16; O2SAT 99
[2022-02-12 02:06] LABS: Appearance Urine CLEAR; Color Urine YELLOW; Glucose Urine UA NEG (NEG); Leukocyte Esterase Urine NEG (NEG); Nitrite Urine NEG (NEG); Urine Blood NEG (NEG); Urine Ketones NEG (NEG); Urine Protein NEG (NEG-TRACE)
[2022-02-12 02:24] LABS: Amphetamine Screen Urine Not Detected (Not Detect); Barbiturates, Urine Not Detected (Not Detect); Benzodiazepines Screen Urine Not Detected (Not Detect); Cannabinoid Screen Urine POSITIVE (Not Detect); Cocaine Screen Urine POSITIVE (Not Detect); Fentanyl, urine POSITIVE (Not Detect); Opiate Screen Urine POSITIVE (Not Detect); Phencyclidine Screen Urine Not Detected (Not Detect)
[2022-02-12 04:00] VITALS: RESP 16
[2022-02-12 05:57] VITALS: RESP 16
--- NOTE | 2022-02-12 10:22 | MHC.CARE ---
CARE Team met with Pt who is requesting to be discharged. Pt denies current SI/HI/AH/VH. Pt states he will return to the hospital or reach out to [facility] crisis if symptoms return. Pt provided bus pass , reporting that he has a safe place to stay. Pt provided with [facility] crisis information. RASHAD Colón agrees to discharge Pt at this time.
== END 2022-02-12 10:31 | disposition home or self-care (01) ==
PROVIDERS: Emergency Medicine; Nurse Practitioner Family; Emergency Provider Emergency Medicine
DX: R45.851 Suicidal ideations (principal); R07.9 Chest pain, unspecified; F19.10 Other psychoactive substance abuse, uncomplicated; Z20.822 Contact with and (suspected) exposure to COVID-19
CPT/HCPCS: 36415; 71045; 80048; 80307; 81003; 84484; 85025; 87635; 93005; 99282; 99284; 99285

== ENCOUNTER 2022-02-14 02:06 | Emergency (ER) | payer OTHER, SELFPAY ==
[2022-02-14 02:20] VITALS: BP 122/73; BP 130/78; PULSE 79; PULSE 96; RESP 18; TEMP 37; O2SAT 98; O2SAT 99; BMI 24.1
--- NOTE | 2022-02-14 02:30 | ECG_ITS ---
Test Reason : CHEST PAIN Blood Pressure : / mmHG Vent. Rate : 079 BPM Atrial Rate : 079 BPM P-R Int : 160 ms QRS Dur : 088 ms QT Int : 382 ms P-R-T Axes : 054 076 064 degrees QTc Int : 438 ms Normal sinus rhythm Normal ECG When compared with ECG of 11-FEB-2022 13:29, No significant change was found Referred By: Erna Corey Electronically Signed By:SANDY ISABEL MD
--- NOTE | 2022-02-14 02:30 | ED.CHESTPAIN ---
HPI - Chest Pain General Chief Complaint: Chest Pain Stated Complaint: chest pain Time Seen by Provider: 02/14/22 02:27 Source: patient Mode of arrival: ambulatory Limitations: no limitations History of Present Illness HPI narrative: Patient comes to emergency room complaining of chest pain. Patient states that he was drinking and suddenly had chest pain. Patient reports that the pain has been there for couple of hours. Patient denies using drugs. Patient was seen here 2 days ago for the same reason. Patient had the same presentation, patient denies using drugs, U tox was positive for cocaine. Patient denies any associated dizziness, lightheadedness, headache, neck pain palpitations, shortness of breath, difficulty breathing, nausea, vomiting, abdominal pain numbness or tingling of the extremities, or weakness.? Related Data Home Medications Medication Instructions Recorded Confirmed No Known Home Meds 02/14/22 02/14/22 Allergies Allergy/AdvReac Type Severity Reaction Status Date / Time Penicillins [PENICILLINS] Allergy Unknown [place] Verified 02/02/22 20:12 haloperidol [From Haldol] Allergy Unknown Verified 02/02/22 20:12 Review of Systems Review of Systems: Constitutional : No Weight loss, No Fever, No Chills, No Night Sweats, No Fatigue, No Malaise ENT/Mouth : No Hearing loss, No Ear Pain, No Nasal Congestion, No Sinus Pain, No Hoarseness, No sore throat, No Rhinorrhea, No Swallowing Difficulty Eyes: No Eye Pain, No Swelling, No Redness, No Foreign Body, No Discharge, No Vision Changes Cardiovascular : Complaining of Chest Pain, No SOB, No Dyspnea on Exertion, No Orthopnea, No Edema, No Palpitations Respiratory : No Cough, No Sputum, No Wheezing, No Smoke Exposure, No Dyspnea Gastrointestinal : No Nausea, No Vomiting, No Diarrhea, No Constipation, No abdominal Pain, No Hematochezia, No Melena Genitourinary : no irregular bleeding, No Dysuria, No Urinary Frequency, No Hematuria, No Urinary Incontinence, No Urgency, No Flank Pain, No Urinary Flow Changes, No Hesitancy Musculoskeletal : No joint pain, No Myalgias, No Joint Swelling Skin : No Skin Lesions, No rash Neuro : No Weakness, No Numbness, No Paresthesias, No Loss of Consciousness, No Dizziness, No Headache Psych : No Anxiety/Panic, No Depression, No SI/HI/AH/VH, No Social Issues, Heme/Lymph: No Bruising, No Bleeding,No Lymphadenopathy Endocrine : No Polyuria, No Polydipsia, No Temperature Intolerance [facility] Past Medical History Medical History (Updated 02/14/22 @ 03:53 by Erna Corey MD) Mood disorder Polysubstance abuse Social History Social History Alcohol intake: never Patient Tobacco Use Status: Never used Tobacco Use of substances other than those prescribed or required for medical reasons: No Substance Use Type: Crack/Cocaine and Marijuana Advance Directives: No Physical Exam Vital Signs: Vital Signs: Last Vital Signs Temp 98.6 F 02/14/22 02:20 Pulse 96 02/14/22 02:20 Resp 18 02/14/22 02:20 BP 122/73 02/14/22 02:20 Pulse Ox 98 02/14/22 02:20 O2 Del Method 02/14/22 02:20 BMI result Body Mass Index 24.1 Const: Other: Appearance: Alert. Oriented X3. No acute distress. Well-appearing Eyes: Pupils equal, round and reactive to light. ENT: Pharynx normal. Neck: Normal inspection. Neck supple. No lymph nodes noted. No crepitus CVS: Normal heart rate and rhythm. Pulses normal. Normal S1 and S2 Respiratory: No respiratory distress. Breath sounds normal. No Wheezing. No rales Abdomen: Soft and nontender. No rigidity. No distention. Skin: Skin warm and dry. Normal skin color. Normal skin turgor. Extremities: No lower extremity edema. No Lacerations. No Rash Neuro: Oriented X 3. No motor deficit. No sensory deficit. Moving all extremities. No slurred speech. CN 2 through 12 grossly intact Psych: calm, cooperative, normal affect Course Course Course Narrative: Labs and EKG pending Patient's EKG, troponin negative. When I reviewed the labs with the patient, and talking about possible discharge. Patient stated he is suicidal. This is the same thing that he did in his last visit. Patient will be going to the Behavioral Health pod Physician observation started at 03:50 MDM - Chest Pain Lab Data Result diagrams: 02/14/22 02:59 02/14/22 03:00 Labs: Lab Results 02/14/22 02/14/22 02/14/22 Range/Units 02:59 03:00 03:00 WBC 12.7 H (4.8-10.8) X10*3/uL RBC 4.10 L (4.60-5.80) X10*6/uL Hgb 12.2 L (14.0-18.0) g/dl Hct 36.7 L (42.0-52.0) % MCV 89.5 (80.0-98.0) fL MCH 29.8 (27.0-33.0) pg MCHC 33.2 (31.0-36.0) g/dl RDW 13.0 (11.0-16.0) % Plt Count 243 (160-400) X10*3/uL MPV 10.1 (9.4-12.4) fL Immature Gran % (Auto) 0.6 H (0.0-0.4) % Neut % (Auto) 66.5 (45-73) % Lymph % (Auto) 21.1 (20-40) % [place] % (Auto) 9.2 (2-11) % Eos % (Auto) 2.4 (0-4) % Baso % (Auto) 0.2 (0-2) % Lymph # (Auto) 2.7 (1.2-4.9) X10*3/uL [place] # (Auto) 1.2 (0.1-1.2) X10*3/uL Eos # (Auto) 0.3 (0.0-0.4) X10*3/uL Baso # (Auto) 0.0 (0.0-0.2) X10*3/uL Abs Immat Gran (auto) 0.07 H (0.00-0.03) X10*3/uL Absolute Neuts (auto) 8.4 H (2.0-8.3) x10*3/uL Absolute Nucleated RBC 0.000 (0.0-0.012) X10*3/uL Nucleated RBC % (auto) 0.0 (0.0-0.2) /100WBC Sodium 141 (135-145) mmol/L Potassium 3.7 (3.3-5.1) mmol/L Chloride 106 (96-108) mmol/L Carbon Dioxide 27 (22-29) mmol/L Anion Gap 12 (12-20) BUN 11 D (9-16) mg/dL Creatinine 0.86 (0.5-1.4) mg/dL Estim Creat Clear Calc 121.5 Estimated GFR > 60 Random Glucose 114 (60-115) mg/dL Calcium 9.5 D (8.4-10.2) mg/dL Total Bilirubin < 0.2 (0.0-1.0) mg/dL Direct Bilirubin < 0.2 (0.0-0.5) mg/dL AST 26 (5-37) U/L ALT 33 (0-40) U/L Alkaline Phosphatase 105 (39-117) U/L Troponin I High Sens < 3.5 (<3.5-35.0) ng/L Total Protein 6.3 L (6.5-8.0) g/dL Albumin 3.7 (3.5-5.0) g/dL Discharge Plan Discharge Clinical Impression: Atypical chest pain, Suicidal ideation Patient Disposition: Still a Patient Prescriptions: No Action No Known Home Meds
[2022-02-14 03:04] LABS: MANUAL DIFF FLAG NO
[2022-02-14 03:05] LABS: Basophils Percent Auto 0.2 % (0-2); Eosinophils Absolute Auto 0.3 X10*3/uL (0.0-0.4); Eosinophils Percent Auto 2.4 % (0-4); Hematocrit 36.7 % (42.0-52.0); Hemoglobin 12.2 g/dl (14.0-18.0); Imm Gran Abs Auto 0.07 X10*3/uL (0.00-0.03); Imm Gran Pct Auto 0.6 % (0.0-0.4); Lymphocytes Absolute Auto 2.7 X10*3/uL (1.2-4.9); Lymphocytes Percent Auto 21.1 % (20-40); Mean Corpuscular HGB Conc 33.2 g/dl (31.0-36.0); Mean Corpuscular Hemoglobin 29.8 pg (27.0-33.0); Mean Corpuscular Volume 89.5 fL (80.0-98.0); Mean Platelet Volume 10.1 fL (9.4-12.4); Monocytes Absolute Auto 1.2 X10*3/uL (0.1-1.2); Monocytes Percent Auto 9.2 % (2-11); Neutrophils Absolute Auto 8.4 x10*3/uL (2.0-8.3); Neutrophils Percent Auto 66.5 % (45-73); Platelet Count 243 X10*3/uL (160-400); White Blood Count 12.7 X10*3/uL (4.8-10.8)
[2022-02-14 03:26] LABS: Alanine Aminotransferase 33 U/L (0-40); Albumin Level 3.7 g/dL (3.5-5.0); Alkaline Phosphatase 105 U/L (39-117); Anion Gap 12 (12-20); Aspartate Amino Transferase 26 U/L (5-37); Bilirubin Direct < 0.2 mg/dL (0.0-0.5); Bilirubin Total < 0.2 mg/dL (0.0-1.0); Blood Urea Nitrogen 11 mg/dL (9-16); Calcium 9.5 mg/dL (8.4-10.2); Carbon Dioxide 27 mmol/L (22-29); Chloride 106 mmol/L (96-108); Creatinine Clr Calc Pharmacy 121.5; Estimated Glomerular Filt Rate > 60; Glucose Random 114 mg/dL (60-115); Potassium 3.7 mmol/L (3.3-5.1); Sodium 141 mmol/L (135-145); Total Protein 6.3 g/dL (6.5-8.0)
[2022-02-14 03:32] LABS: Troponin-I High Sensitivity < 3.5 ng/L (<3.5-35.0)
[2022-02-14 03:53] LABS: COVID-19 Test Negative (Negative)
--- NOTE | 2022-02-14 04:14 | PC.NURSE ---
pt is sleeping, pt reports SI, Per provider pt will be transferred to the POD after being medically cleared. 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
[2022-02-14 05:04] LABS: Amphetamine Screen Urine Not Detected (Not Detect); Barbiturates, Urine Not Detected (Not Detect); Benzodiazepines Screen Urine Not Detected (Not Detect); Cannabinoid Screen Urine POSITIVE (Not Detect); Cocaine Screen Urine POSITIVE (Not Detect); Fentanyl, urine POSITIVE (Not Detect); Opiate Screen Urine Not Detected (Not Detect); Phencyclidine Screen Urine Not Detected (Not Detect)
--- NOTE | 2022-02-14 06:28 | PC.NURSE ---
Patient was transferred from main ED at 0415, independent ambulation, med rec completed/no med at this time, [facility] referral completed/confirmed/pending ETA, behavior non concerning, VSS, will continue to monitor.
--- NOTE | 2022-02-14 07:15 | PC.NURSE ---
patient appears to remain asleep at present respirations are even and unlabored patient appears in no distress
--- NOTE | 2022-02-14 13:12 | MHC.CARE ---
Patient came to the ED last night by ambulance with the complaint of chest pain, following medical clearance he reported suicidal ideation. This morning, patient requested discharge and denied suicidal ideation, plan or intention. Declined offer for outpatient referrals, stated, ?Resources are useless,? suggested he may benefit from speaking to the Recovery Team and patient said,?I don?t use drugs.? He acknowledged coming to the ED for food and a place to sleep. Patient was discharged to [facility] yesterday and did not want to do that again today, said it was not helpful. Plan is to discharge patient, he is not having a mental health crisis and does not require an inpatient psychiatric admission. Disposition to discharge discussed with ED provider RASHAD Wooten and with psychiatric provider, Catina Champion APRN during rounds as well as electrical prospecting supervisor, PAPO Molina
--- NOTE | 2022-02-14 13:39 | MHC.CARE ---
CARE junior project coordinator meets with pt, as pt has been seen multiple times recently by CARE Team and has not been willing to be referred to treatment. pt typically presents reporting SI on arrival, but in the morning admits that he was not being truthful, making these statements so he has a place to stay. Pt has also been positive for fetanyl 4 out of last 5 ED visits, though he continues to deny substance use. CARE Team explains to pt that given this pattern, pt should only to present to ED if in an emergency, and if he is not in an emergency, he will be discharged. CARE Team communicates with RASHAD Cosby and battery charger tester Becky about this interaction. As CARE Team is attempting to engage pt in discussion about his ED visits and needs, pt escalates, swearing at TW and wanting to leave. Pt is walked out by security.
== END 2022-02-14 13:04 | disposition home or self-care (01) ==
PROVIDERS: Emergency Provider Emergency Medicine
DX: R45.851 Suicidal ideations (principal); R07.89 Other chest pain; F19.10 Other psychoactive substance abuse, uncomplicated; Z20.822 Contact with and (suspected) exposure to COVID-19
CPT/HCPCS: 36415; 80048; 80076; 80307; 84484; 85025; 87635; 93005; 99284; 99285

== ENCOUNTER 2022-02-16 17:56 | Emergency (ER) | payer OTHER, SELFPAY ==
--- NOTE | ~2022-02-16 | CT_ITS ---
EXAMINATION: CT ABDOMEN AND PELVIS WITHOUT CONTRAST CLINICAL INFORMATION: Left upper quadrant abdominal and flank pain today. COMPARISON: CT abdomen and pelvis 05/13/2018 TECHNIQUE: Multidetector volumetric imaging was performed from the superior aspect of the liver through the pubic symphysis. Sagittal and coronal reformatted images were obtained on the technologist's workstation. This CT examination was performed using dose optimization techniques as appropriate, variously including the following: *Automated exposure control *Adjustment of mA and/or kV according to patient size (this includes techniques or standardized protocols for targeted exams where dose is matched to indication/reason for exam; i.e. extremities or head) *Use of iterative reconstruction technique DLP: 496 mGy-cm FINDINGS: LUNG BASES: The visualized lung bases are unremarkable. LIVER, GALLBLADDER, AND BILIARY TREE: The liver is normal in size, shape, and attenuation. No focal hepatic lesion or biliary ductal dilatation is present. Gallbladder is largely decompressed. No calcified gallstones or pericholecystic inflammatory change. PANCREAS: Unremarkable. SPLEEN: Unremarkable. ADRENAL GLANDS: Unremarkable. KIDNEYS AND URETERS: The kidneys are normal in size, shape, and attenuation. No hydronephrosis, hydroureter, or calculi seen. No perinephric stranding. BLADDER: Unremarkable. GASTROINTESTINAL TRACT: Moderate amount of formed stool throughout the nondilated colon. Prominent distention of the stomach with undigested high density oblong shaped material/food stuffs. Appendix is unremarkable. No ascites or intra-abdominal free air. ABDOMINAL WALL: No significant hernia is appreciated. LYMPH NODES: No lymphadenopathy. VASCULAR: Normal caliber abdominal aorta. No vascular calcifications. PELVIC VISCERA: Unremarkable. OSSEOUS STRUCTURES: No fracture or suspicious osseous lesion. CT/CT abdomen pelvis wo con IMPRESSION: 1. No acute intra-abdominal process identified.
[2022-02-16 18:04] VITALS: BP 108/54; BP 110/70; PULSE 100; PULSE 81; RESP 16; TEMP 36.6; O2SAT 97; O2SAT 98; BMI 24.2
--- NOTE | 2022-02-16 18:11 | ED_ITS ---
HPI - Abdominal Pain General Chief Complaint: Abdominal Pain Stated Complaint: L FLANK PAIN Time Seen by Provider: 02/16/22 18:04 Source: patient and EMS Mode of arrival: EMS Limitations: no limitations History of Present Illness HPI narrative: 31-year-old male with a past medical history of cocaine/marijuana usage, mood disorder presenting to the ED via EMS with complaints of left upper quadrant/left flank pain that started few hours prior to arrival. Reports that he has never had this in the past. Denies any fevers, chills, dizziness, headaches, neck pain/stiffness, trouble swallowing or breathing, chest pain or shortness of breath, cough, recent falls or trauma, nausea/vomiting/diarrhea constipation, black or bloody stools, recent travel or sick contacts, radiation of the abdominal pain, hematuria, dysuria, abnormal penile discharge, rashes, SI/HI/auditory visualizations thoughts of self-injury or any other symptoms complaints or concerns at this time. MD elicited complaint: abdominal pain Onset (ago): hour(s) ([employer]) Pain Consistency: constant Location: LUQ Severity: moderate Quality: aching Radiation: none Migration to: no migration Exacerbating factors: nothing Relieving factors: nothing Associated symptoms: denies other symptoms Related Data Previous Rx's Medication Instructions Recorded famotidine 20 mg tablet (Pepcid) 20 mg PO BID gerd #10 tabs 02/16/22 ondansetron 4 mg disintegrating 4 mg PO Q6-8H PRN nausea and 02/16/22 tablet vomiting #10 tabs Allergies Allergy/AdvReac Type Severity Reaction Status Date / Time Penicillins [PENICILLINS] Allergy Unknown [place] Verified 02/02/22 20:12 haloperidol [From Haldol] Allergy Unknown Verified 02/02/22 20:12 Review of Systems Review of Systems Constitutional : No Weight loss, No Fever, No Chills, No Night Sweats, No Fatigue, No Malaise ENT/Mouth : No Hearing loss, No Ear Pain, No Nasal Congestion, No Sinus Pain, No Hoarseness, No sore throat, No Rhinorrhea, No Swallowing Difficulty Eyes: No Eye Pain, No Swelling, No Redness, No Foreign Body, No Discharge, No Vision Changes Cardiovascular : No Chest Pain, No SOB, No Dyspnea on Exertion, No Orthopnea, No Edema, No Palpitations Respiratory : No Cough, No Sputum, No Wheezing, No Smoke Exposure, No Dyspnea Gastrointestinal : + abdominal pain, No Nausea, No Vomiting, No Diarrhea, No Constipation, No Hematochezia, No Melena Genitourinary : no irregular bleeding, No Dysuria, No Urinary Frequency, No Hematuria, No Urinary Incontinence, No Urgency, No Flank Pain, No Urinary Flow Changes, No Hesitancy Musculoskeletal : No joint pain, No Myalgias, No Joint Swelling Skin : No Skin Lesions, No rash Neuro : No Weakness, No Numbness, No Paresthesias, No Loss of Consciousness, No Dizziness, No Headache Psych : No Anxiety/Panic, No Depression, No SI/HI/AH/VH, No Social Issues, Heme/Lymph: No Bruising, No Bleeding,No Lymphadenopathy Endocrine : No Polyuria, No Polydipsia, No Temperature Intolerance Yes all other systems are reviewed and are negative [facility] Past Medical History Attestation statement: The following information was validated with the patient. Source: old records reviewed and nursing notes reviewed Medical History Mood disorder Polysubstance abuse Social History Social History Alcohol intake: former Patient Tobacco Use Status: Never used Tobacco Substance Use Type: Crack/Cocaine and Marijuana Advance Directives: No Advance Directives Information Provided: No Physical Exam ED Vital Signs: Vital Signs - 24 hr 02/16/22 18:04 02/16/22 18:38 Temperature 97.9 F 98.0 F Pulse Rate 81 Respiratory Rate 16 16 Blood Pressure 108/54 L 108/55 L Pulse Oximetry 97 97 Oxygen Delivery Method Room Air Room Air BMI result Body Mass Index 24.2 Vital signs have been reviewed and blood pressure 108/54. Pulse 81. Respirations 16. Temperature 97.9 degrees orally. Oxygen 97% on room air. Appearance: Alert. Oriented X3. No acute distress. Head: Normal external exam. Normocephalic. Eyes: PERRLA. EOMI. Conjunctiva and sclera normal. Eyelids normal. ENT: Pharynx normal. Uvula midline. Moist mucous membranes. No trismus noted. No drooling noted. No muffled voice noted. Neck: Normal inspection. Neck supple. FROM. No adenopathy. No meningeal signs. CVS: Normal heart rate and rhythm. Heart sound normal. No murmurs noted. Pulses normal throughout. Respiratory: No respiratory distress. Painless inspiration. Breath sounds normal. No wheezes/rales/rhonchi noted. Chest nontender. No accessory muscle usage noted or decreased air movement noted. Abdomen: Soft and mild ttp to LUQ Nondistended. No guarding. No rigidity. Bowel sounds normal in all 4 quadrants. No distention noted. No organomegaly noted. No visible injury noted. No rebound tenderness. Negative Rovsing sign. Negative obturator's sign. Negative psoas sign. Negative Moss sign. Back: No CVA tenderness. Full range of motion noted. Skin: Skin warm and dry. Normal skin color. Normal skin turgor. No rashes/lesions/lacerations noted. Extremities: Extremities exhibit normal range of motion. Extremities nontender. Neuro: Oriented X 3. No motor deficit. No sensory deficit. Reflexes normal. Normal steady gait. CN's II-XII intact bilaterally? Course Course Course Narrative: 18:10pm - 31-year-old male with a past medical history of cocaine/marijuana usage, mood disorder presenting to the ED via EMS with complaints of left upper quadrant/left flank pain that started few hours prior to arrival. Plan: Labs, UA, CT scan abdomen pelvis without IV contrast and re-evaluate. Reevaluation(s) Reevaluation #1: - labs reviewed patient with mild baseline anemia similar compared to prior. Anion gap 10. AST/ALT 48/65. Total protein 6.2. Lipase 125. Otherwise all other labs are within normal limits. - CT scan abdomen pelvis without IV contrast negative for any intra-abdominal processes at this time. I did consider pancreatitis and I would have use IV contrast although due to the world shortage of IV contrast we did not use IV contrast and his CT scan abdomen pelvis without IV contrast was negative. - therefore at this time will DC home with symptomatic treatment instructions return if any new or worsening symptoms follow up with primary care provider. Patient understands agrees with this plan. Time: 19:02 [facility] - Abdominal Pain Medical Records Attestation: I reviewed the patient's medical records. Lab Data Attestation: I reviewed the patient's lab results. Result diagrams: 02/16/22 18:30 02/16/22 18:30 Labs: Lab Results 02/16/22 02/16/2222 Range/Units 18:30 18:30 18:30 WBC 9.7 (4.8-10.8) X10*3/uL RBC 3.95 L (4.60-5.80) X10*6/uL Hgb 11.8 L (14.0-18.0) g/dl Hct 35.3 L (42.0-52.0) % MCV 89.4 (80.0-98.0) fL MCH 29.9 (27.0-33.0) pg MCHC 33.4 (31.0-36.0) g/dl RDW 13.1 (11.0-16.0) % Plt Count 259 (160-400) X10*3/uL MPV 10.0 (9.4-12.4) fL Immature Gran % (Auto) 1.2 H (0.0-0.4) % Neut % (Auto) 59.0 (45-73) % Lymph % (Auto) 28.4 (20-40) % Sargent % (Auto) 8.4 (2-11) % Eos % (Auto) 2.6 (0-4) % Baso % (Auto) 0.4 (0-2) % Lymph # (Auto) 2.8 (1.2-4.9) X10*3/uL Sargent # (Auto) 0.8 (0.1-1.2) X10*3/uL Eos # (Auto) 0.3 (0.0-0.4) X10*3/uL Baso # (Auto) 0.0 (0.0-0.2) X10*3/uL Abs Immat Gran (auto) 0.12 H (0.00-0.03) X10*3/uL Absolute Neuts (auto) 5.7 (2.0-8.3) x10*3/uL Absolute Nucleated RBC 0.000 (0.0-0.012) X10*3/uL Nucleated RBC % (auto) 0.0 (0.0-0.2) /100WBC Sodium 139 (135-145) mmol/L Potassium 3.9 (3.3-5.1) mmol/L Chloride 106 (96-108) mmol/L Carbon Dioxide 27 (22-29) mmol/L Anion Gap 10 L (12-20) BUN 12 (9-16) mg/dL Creatinine 0.89 (0.5-1.4) mg/dL Estim Creat Clear Calc 109.5 Estimated GFR > 60 Random Glucose 114 (60-115) mg/dL Calcium 8.9 D (8.4-10.2) mg/dL Magnesium 2.0 (1.6-2.6) mg/dL Total Bilirubin 0.2 (0.0-1.0) mg/dL AST 48 H D (5-37) U/L ALT 65 H (0-40) U/L Alkaline Phosphatase 97 (39-117) U/L Lactate Dehydrogenase 186 (118-273) U/L Total Protein 6.2 L (6.5-8.0) g/dL Albumin 3.7 (3.5-5.0) g/dL Lipase 125 H (8-78) U/L Urine Color Urine Appearance Urine pH (5.0-8.0) Ur Specific [place] (1.005-1.025) Urine Protein (NEG-TRACE) MG/DL Urine Glucose (UA) (NEG) MG/DL Urine Ketones (NEG) MG/DL Urine Blood (NEG) Urine Nitrite (NEG) Ur Leukocyte Esterase (NEG) Urine Opiates Screen (Not Detect) Urine Fentanyl Screen (Not Detect) Ur Barbiturates Screen (Not Detect) Ur Phencyclidine Scrn (Not Detect) Ur Amphetamines Screen (Not Detect) U Benzodiazepines Scrn (Not Detect) Urine Cocaine Screen (Not Detect) U Marijuana (THC) Screen (Not Detect) Ethyl Alcohol < 10 mg/dL 02/16/22 02/16/22 Range/Units 18:56 18:56 WBC (4.8-10.8) X10*3/uL RBC (4.60-5.80) X10*6/uL Hgb (14.0-18.0) g/dl Hct (42.0-52.0) % MCV (80.0-98.0) fL MCH (27.0-33.0) pg MCHC (31.0-36.0) g/dl RDW (11.0-16.0) % Plt Count (160-400) X10*3/uL MPV (9.4-12.4) fL Immature Gran % (Auto) (0.0-0.4) % Neut % (Auto) (45-73) % Lymph % (Auto) (20-40) % S[place]ent % (Auto) (2-11) % Eos % (Auto) (0-4) % Baso % (Auto) (0-2) % Lymph # (Auto) (1.2-4.9) X10*3/uL [place] # (Auto) (0.1-1.2) X10*3/uL Eos # (Auto) (0.0-0.4) X10*3/uL Baso # (Auto) (0.0-0.2) X10*3/uL Abs Immat Gran (auto) (0.00-0.03) X10*3/uL Absolute Neuts (auto) (2.0-8.3) x10*3/uL Absolute Nucleated RBC (0.0-0.012) X10*3/uL Nucleated RBC % (auto) (0.0-0.2) /100WBC Sodium (135-145) mmol/L Potassium (3.3-5.1) mmol/L Chloride (96-108) mmol/L Carbon Dioxide (22-29) mmol/L Anion Gap (12-20) BUN (9-16) mg/dL Creatinine (0.5-1.4) mg/dL Estim Creat Clear Calc Estimated GFR Random Glucose (60-115) mg/dL Calcium (8.4-10.2) mg/dL Magnesium (1.6-2.6) mg/dL Total Bilirubin (0.0-1.0) mg/dL AST (5-37) U/L ALT (0-40) U/L Alkaline Phosphatase (39-117) U/L Lactate Dehydrogenase (118-273) U/L Total Protein (6.5-8.0) g/dL Albumin (3.5-5.0) g/dL Lipase (8-78) U/L Urine Color YELLOW Urine Appearance CLEAR Urine pH 6.0 (5.0-8.0) Ur Specific [place] >= 1.030 H (1.005-1.025) Urine Protein NEG (NEG-TRACE) MG/DL Urine Glucose (UA) NEG (NEG) MG/DL Urine Ketones NEG (NEG) MG/DL Urine Blood NEG (NEG) Urine Nitrite NEG (NEG) Ur Leukocyte Esterase NEG (NEG) Urine Opiates Screen Not Detected (Not Detect) Urine Fentanyl Screen POSITIVE H (Not Detect) Ur Barbiturates Screen Not Detected (Not Detect) Ur Phencyclidine Scrn Not Detected (Not Detect) Ur Amphetamines Screen Not Detected (Not Detect) U Benzodiazepines Scrn Not Detected (Not Detect) Urine Cocaine Screen Not Detected (Not Detect) U Marijuana (THC) Screen POSITIVE H (Not Detect) Ethyl Alcohol mg/dL Imaging Data CT scan abdomen pelvis without IV contrast due to IV contrast ordered: Attestation: I personally reviewed and interpreted this imaging study as follows: Radiologist's impression: FINDINGS: LUNG BASES: The visualized lung bases are unremarkable.? LIVER, GALLBLADDER, AND BILIARY TREE: The liver is normal in size, shape, and attenuation. No focal hepatic lesion or biliary ductal dilatation is present. Gallbladder is largely decompressed. No calcified gallstones or pericholecystic inflammatory change.? PANCREAS: Unremarkable.? SPLEEN: Unremarkable.? ADRENAL GLANDS: Unremarkable.? KIDNEYS AND URETERS: The kidneys are normal in size, shape, and attenuation. No hydronephrosis, hydroureter, or calculi seen. No perinephric stranding. ? BLADDER: Unremarkable.? GASTROINTESTINAL TRACT: Moderate amount of formed stool throughout the nondilated colon. Prominent distention of the stomach with undigested high density oblong shaped material/food stuffs. Appendix is unremarkable. No ascites or intra-abdominal free air. ABDOMINAL WALL: No significant hernia is appreciated.? LYMPH NODES: No lymphadenopathy. VASCULAR: Normal caliber abdominal aorta. No vascular calcifications. PELVIC VISCERA: Unremarkable.? OSSEOUS STRUCTURES: No fracture or suspicious osseous lesion.? CT/CT abdomen pelvis wo con IMPRESSION: ? 1. No acute intra-abdominal process identified. Discharge Plan Discharge Clinical Impression: Abdominal pain Patient Disposition: Home, Self-Care Instructions: Abdominal Pain (ED) Prescriptions: New ondansetron 4 mg tablet,disintegrating 4 mg PO Q6-8H PRN (Reason: nausea and vomiting) Qty: 10 0RF famotidine [Pepcid] 20 mg tablet 20 mg PO BID Qty: 10 0RF Referrals: Physician,Unknown J [Primary Care Provider] - 2 days (your pcp) Interventions: ED Discharge Assessment Last Done: 02/16/22 19:45 Discharge Date/Time: 02/16/22 19:45
[2022-02-16 18:36] LABS: MANUAL DIFF FLAG NO
[2022-02-16 18:38] VITALS: BP 108/55; RESP 16; TEMP 36.7; O2SAT 97
[2022-02-16 18:39] LABS: Basophils Percent Auto 0.4 % (0-2); Eosinophils Absolute Auto 0.3 X10*3/uL (0.0-0.4); Eosinophils Percent Auto 2.6 % (0-4); Hematocrit 35.3 % (42.0-52.0); Hemoglobin 11.8 g/dl (14.0-18.0); Imm Gran Abs Auto 0.12 X10*3/uL (0.00-0.03); Imm Gran Pct Auto 1.2 % (0.0-0.4); Lymphocytes Absolute Auto 2.8 X10*3/uL (1.2-4.9); Lymphocytes Percent Auto 28.4 % (20-40); Mean Corpuscular HGB Conc 33.4 g/dl (31.0-36.0); Mean Corpuscular Hemoglobin 29.9 pg (27.0-33.0); Mean Corpuscular Volume 89.4 fL (80.0-98.0); Monocytes Absolute Auto 0.8 X10*3/uL (0.1-1.2); Monocytes Percent Auto 8.4 % (2-11); Neutrophils Absolute Auto 5.7 x10*3/uL (2.0-8.3); Platelet Count 259 X10*3/uL (160-400); Red Blood Count 3.95 X10*6/uL (4.60-5.80); Red Cell Distribution Width 13.1 % (11.0-16.0); White Blood Count 9.7 X10*3/uL (4.8-10.8)
[2022-02-16 18:52] LABS: Ethanol < 10 mg/dL
[2022-02-16 18:54] LABS: Alanine Aminotransferase 65 U/L (0-40); Albumin Level 3.7 g/dL (3.5-5.0); Alkaline Phosphatase 97 U/L (39-117); Anion Gap 10 (12-20); Aspartate Amino Transferase 48 U/L (5-37); Bilirubin Total 0.2 mg/dL (0.0-1.0); Blood Urea Nitrogen 12 mg/dL (9-16); Calcium 8.9 mg/dL (8.4-10.2); Carbon Dioxide 27 mmol/L (22-29); Chloride 106 mmol/L (96-108); Creatinine Clr Calc Pharmacy 109.5; Estimated Glomerular Filt Rate > 60; Glucose Random 114 mg/dL (60-115); Lactate Dehydrogenase 186 U/L (118-273); Lipase 125 U/L (8-78); Potassium 3.9 mmol/L (3.3-5.1); Sodium 139 mmol/L (135-145); Total Protein 6.2 g/dL (6.5-8.0)
[2022-02-16 19:13] LABS: Appearance Urine CLEAR; Color Urine YELLOW; Glucose Urine UA NEG (NEG); Leukocyte Esterase Urine NEG (NEG); Nitrite Urine NEG (NEG); Specific Gravity - Urine >= 1.030 (1.005-1.025); Urine Blood NEG (NEG); Urine Ketones NEG (NEG); Urine Protein NEG (NEG-TRACE)
[2022-02-16 19:19] LABS: Amphetamine Screen Urine Not Detected (Not Detect); Barbiturates, Urine Not Detected (Not Detect); Benzodiazepines Screen Urine Not Detected (Not Detect); Cannabinoid Screen Urine POSITIVE (Not Detect); Cocaine Screen Urine Not Detected (Not Detect); Fentanyl, urine POSITIVE (Not Detect); Opiate Screen Urine Not Detected (Not Detect); Phencyclidine Screen Urine Not Detected (Not Detect)
== END 2022-02-16 19:45 | disposition home or self-care (01) ==
PROVIDERS: Physician Assistant Medical; Emergency Provider Emergency Medicine
DX: R10.12 Left upper quadrant pain (principal); F14.10 Cocaine abuse, uncomplicated; F12.10 Cannabis abuse, uncomplicated
CPT/HCPCS: 36415; 74176; 80053; 80307; 81003; 82077; 83615; 83690; 83735; 85025; 99284

== ENCOUNTER 2022-02-21 13:53 | Emergency (ER) | payer OTHER, SELFPAY ==
--- NOTE | 2022-02-21 | ECG_ITS ---
Test Reason : CHEST PAIN Blood Pressure : / mmHG Vent. Rate : 114 BPM Atrial Rate : 114 BPM P-R Int : 148 ms QRS Dur : 080 ms QT Int : 310 ms P-R-T Axes : 061 059 050 degrees QTc Int : 427 ms Sinus tachycardia Otherwise normal ECG When compared with ECG of 14-FEB-2022 02:43, T wave amplitude has increased in Anterior leads Referred By: Generic ED Physician Electronically Signed By:SANDY ISABEL MD
[2022-02-21 13:58] VITALS: BP 99/63; PULSE 127; RESP 20; TEMP 35.8; O2SAT 100; BMI 24.2
--- NOTE | 2022-02-21 14:01 | ED_ITS ---
HPI - Chest Pain General Chief Complaint: Chest Pain Stated Complaint: chest pain Time Seen by Provider: 02/21/22 14:01 Source: patient Mode of arrival: ambulatory Limitations: no limitations History of Present Illness HPI narrative: chronic c/o chest pain in patient with hx of mood disorder, substance abuse, comes to our ED almost daily with chest pain then asks for food. Will have normal troponin, EKG, CXR. He is usually discharged and then returns with c/o SI - when seen by our CARE team or [facility] he tells them he does not have SI he just says what he needs to in order to stay here or get food. At this time he c/o chest pain similar to what he has had in the past. MD complaint: chest pain Pertinent past history: other (chronic chest pain) Onset (ago): month(s) (comes in regularly for chest pain) Timing of current episode: constant Prior episodes: Yes Onset: during rest Pain location: left chest Pain radiation: none Severity: mild Quality: other ( chest pain. ) Relieving factors: nothing Exacerbating factors: nothing Context: other (my chest hurts every day) Treatment prior to arrival: none Related Data Previous Rx's Medication Instructions Recorded famotidine 20 mg tablet (Pepcid) 20 mg PO BID gerd #10 tabs 02/16/22 ondansetron 4 mg disintegrating 4 mg PO Q6-8H PRN nausea and 02/16/22 tablet vomiting #10 tabs Allergies Allergy/AdvReac Type Severity Reaction Status Date / Time Penicillins [PENICILLINS] [facility] 02/02/22 20:12 haloperidol [From Haldol] Allergy Unknown Verified 02/02/22 20:12 Review of Systems Review of Systems: Constitutional : No Fever, No Chills ENT/Mouth : No sore throat, No Rhinorrhea Eyes: No Eye Pain, No Swelling Cardiovascular : pos Chest Pain, no SOB Respiratory : No Cough, No Sputum Gastrointestinal : no Nausea, No Vomiting, No Diarrhea Genitourinary : No Dysuria, No Urinary Frequency Musculoskeletal : No joint pain, No Myalgias, No Joint Swelling Skin : No Skin Lesions, No rash Neuro : No Weakness, No Numbness, No Dizziness, No Headache Psych : No Anxiety/Panic, No Depression All other systems reviewed and are negative PMFSH Past Medical History Attestation statement: The following information was validated with the patient. Medical History Mood disorder Polysubstance abuse Social History Social History Alcohol intake: former Patient Tobacco Use Status: Never used Tobacco Substance Use Type: Crack/Cocaine and Marijuana Physical Exam Vital Signs: Vital Signs: Last Vital Signs Temp 96.5 F L 02/21/22 13:58 Pulse 127 H 02/21/22 13:58 Resp 20 02/21/22 13:58 BP 99/63 02/21/22 13:58 Pulse Ox 100 02/21/22 13:58 O2 Del Method 02/21/22 13:58 BMI result Body Mass Index 24.2 Appearance: Alert. Oriented X3. No acute distress. Rude, talking on phone Eyes: Pupils equal, round and reactive to light. ENT: Pharynx normal. Neck: Normal inspection. Neck supple. CVS: tachycardic heart rate and rhythm. Pulses normal. Respiratory: No respiratory distress. Breath sounds normal. Abdomen: Soft and non-tender. Skin: Skin warm and dry. Normal skin color. Normal skin turgor. Extremities: No lower extremity edema. No calf ttp Neuro: Oriented X 3. No motor deficit. No sensory deficit. Denies SI/HI MDM - Chest Pain MDM Narrative Medical decision making narrative: 31 yo male with substance abuse and mood disorder comes with c/o chronic chest pain work up in past negative multiple times - he is rude during interview laughing, he even called a friend in triage stating he was going to buy weed per tech. The patient denies SI/HI. He was notified by me that at this point with his multiple ED presentations that we could offer crisis his response was no fuck that and he walked out with his backpack and phone - no distress. ECG Data ECG #1: Attestation: I personally reviewed and interpreted this ECG as follows: ECG interpretation date: 02/21/22 ECG interpretation time: 14:16 Interpretation: Rate: 114 Rhythm: sinus tach [place]: normal Normal P waves. Normal ALONSO. Normal QRS complex. ST T wave : normal no MARY qTC: normal prior studies: no acute ischemia The study has been interpreted contemporaneously by me. . Discharge Plan Discharge Clinical Impression: Chest pain, Atypical chest pain Patient Disposition: Elopement Prescriptions: No Action ondansetron 4 mg tablet,disintegrating 4 mg PO Q6-8H PRN (Reason: nausea and vomiting) Qty: 10 0RF famotidine [Pepcid] 20 mg tablet 20 mg PO BID Qty: 10 0RF Interventions: ED Discharge Assessment Last Done: 02/21/22 14:10
== END 2022-02-21 14:26 | disposition left against medical advice (07) ==
LOC: HO.ED 14:23
PROVIDERS: Emergency Provider Emergency Medicine
DX: R07.89 Other chest pain (principal); F14.10 Cocaine abuse, uncomplicated; F12.10 Cannabis abuse, uncomplicated; Z79.899 Other long term (current) drug therapy
CPT/HCPCS: 93005; 99282; 99283

== ENCOUNTER 2022-02-27 19:04 | Emergency (ER) | payer OTHER, SELFPAY | END 2022-02-27 22:28 | disposition left against medical advice (07) | PROVIDERS: Emergency Provider Emergency Medicine | DX: R10.9 Unspecified abdominal pain (principal) ==

== ENCOUNTER 2022-02-27 22:46 | Emergency (ER) | payer OTHER, SELFPAY ==
[2022-02-27 23:03] VITALS: BP 104/50; PULSE 52; PULSE 75; RESP 20; TEMP 36.6; O2SAT 100; O2SAT 99; BMI 26.4
--- NOTE | 2022-02-27 23:06 | ED.NAVMDI ---
HPI - Nausea/Vomiting/Diarrhea General Chief complaint: Nausea/Vomiting/Diarrhea Stated complaint: vomiting Time Seen by Provider: 02/27/22 23:06 Source: patient Mode of arrival: EMS Limitations: no limitations History of Present Illness HPI Narrative: Patient came earlier in the day for nausea and vomiting he left. patient found in the middle of the street vomiting. He is also having diarrhea and feeling lightheaded. MD elicited complaint: nausea and vomiting Pertinent past history: cyclical vomiting Onset (ago): hour(s) Associated nausea: Yes Quality: cramping Exacerbating factors: eating Relieving factors: none Associated symptoms: denies other symptoms Related Data Previous Rx's Medication Instructions Recorded famotidine 20 mg tablet (Pepcid) 20 mg PO BID gerd #10 tabs 02/16/22 ondansetron 4 mg disintegrating 4 mg PO Q6-8H PRN nausea and 02/16/22 tablet vomiting #10 tabs ondansetron 4 mg disintegrating 4 mg PO Q8H 4 days #12 tabs 02/28/22 tablet pantoprazole 40 mg tablet,delayed 40 mg PO DAILY #20 tabs 02/28/22 release (Protonix) Allergies Allergy/AdvReac Type Severity Reaction Status Date / Time Penicillins [PENICILLINS] Allergy Unknown [place] Verified 02/02/22 20:12 haloperidol [From Haldol] Allergy Unknown Verified 02/02/22 20:12 Review of Systems Constitutional: Constitutional: Reports no additional constitutional complaints Eyes: Eyes: Reports no additional eye complaints ENT: Denies dizziness Cardiovascular: Cardiovascular: Reports no additional cardiovascular complaints Respiratory: Respiratory: Reports as per HPI Gastrointestinal: Gastrointestinal: Reports nausea Musculoskeletal: Musculoskeletal: Reports no additional musculoskeletal complaints Integumentary/Breasts: Skin/Breast: Denies rash Neurologic: Reports system reviewed and no additional complaints, except as documented, Denies dizziness and Denies Sensory deficit (Neuro) Psychiatric: Psychiatric: Denies anxiety PMFSH Past Medical History Medical History Mood disorder Polysubstance abuse Social History Social History Alcohol intake: former Patient Tobacco Use Status: Never used Tobacco Substance Use Type: Crack/Cocaine and Marijuana Advance Directives: No Advance Directives Information Provided: Yes Physical Exam Vital Signs: Vital Signs: Last Vital Signs Temp 97.9 F 02/27/22 23:03 Pulse 96 02/28/22 06:37 Resp 18 02/28/22 06:37 BP 111/62 02/28/22 04:00 Pulse Ox 97 02/28/22 06:37 O2 Del Method 02/28/22 06:37 BMI result Body Mass Index 26.4 Const: Other: male looking older than stated age, unkept Nutritional Appearance: average body habitus Orientation/consciousness: oriented to person and patient oriented x3 Limitations: no limitations HEENT: Head: Yes normal to inspection Ears: external ears normal General nose exam: Normal external nose present Mouth: Normal oral and palatal mucosa present and oropharynx normal Throat: Yes posterior oropharynx normal Eyes: General: appearance normal, both eyes and all related structures Neck: Other: supple Neck: Yes normal visual inspection Chest: Chest palpation & inspection: normal inspection of the chest Resp: Auscultation: clear to auscultation bilaterally Cardio: Jugular venous distension: no JVD Rate: regular rate Rhythm: regular rhythm Heart sounds: S1 normal heart sound present and S2 normal heart sound present GI: Other: soft but diffusely tender Palpation (GI): Soft to palpation : General: Yes no CVA tenderness Back/Spine/Pelvis: Back: no CVA tenderness Skin: General skin exam: no rashes or lesions noted Neuro: General: oriented to person and patient oriented x3 Cranial nerves: Yes CN's II-XII intact bilaterally Motor exam (neuro): 5/5 motor strength present throughout Sensory Exam: No Sensory deficit (Neuro) Extrem: General: Yes normal to inspection Psych: Appearance: grossly normal Course Reevaluation(s) Reevaluation #1: no further vomiting or diarrhea, slept all night. Will dc home on protonix. He is now awake eating Time: 07:01 MDM - Nausea/Vomiting/Diarrhea Lab Data Result diagrams: 02/28/22 00:14 02/28/22 00:14 Labs: Lab Results 02/27/22 02/28/22 02/28/22 Range/Units 23:06 00:14 00:14 WBC 17.3 H (4.8-10.8) X10*3/uL RBC 4.49 L (4.60-5.80) X10*6/uL Hgb 13.6 L (14.0-18.0) g/dl Hct 39.3 L (42.0-52.0) % MCV 87.5 (80.0-98.0) fL MCH 30.3 (27.0-33.0) pg MCHC 34.6 (31.0-36.0) g/dl RDW 13.2 (11.0-16.0) % Plt Count 257 (160-400) X10*3/uL MPV 10.5 (9.4-12.4) fL Immature Gran % (Auto) 0.5 H (0.0-0.4) % Neut % (Auto) 81.3 H (45-73) % Lymph % (Auto) 6.2 L (20-40) % [place] % (Auto) 9.6 (2-11) % Eos % (Auto) 2.1 (0-4) % Baso % (Auto) 0.3 (0-2) % Lymph # (Auto) 1.1 L (1.2-4.9) X10*3/uL [place] # (Auto) 1.7 H (0.1-1.2) X10*3/uL Eos # (Auto) 0.4 (0.0-0.4) X10*3/uL Baso # (Auto) 0.1 (0.0-0.2) X10*3/uL Abs Immat Gran (auto) 0.09 H (0.00-0.03) X10*3/uL Absolute Neuts (auto) 14.1 H (2.0-8.3) x10*3/uL Absolute Nucleated RBC 0.000 (0.0-0.012) X10*3/uL Nucleated RBC % (auto) 0.0 (0.0-0.2) /100WBC Sodium 138 (135-145) mmol/L Potassium 4.0 (3.3-5.1) mmol/L Chloride 104 (96-108) mmol/L Carbon Dioxide 25 (22-29) mmol/L Anion Gap 13 (12-20) BUN 17 H (9-16) mg/dL Creatinine 0.80 (0.5-1.4) mg/dL Estim Creat Clear Calc 121.8 Estimated GFR > 60 POC Glucose 114 (60-115) mg/dL Random Glucose 121 H (60-115) mg/dL Calcium 9.2 (8.4-10.2) mg/dL Total Bilirubin 0.7 (0.0-1.0) mg/dL AST 40 H (5-37) U/L ALT 61 H (0-40) U/L Alkaline Phosphatase 127 H D (39-117) U/L Total Protein 7.1 (6.5-8.0) g/dL Albumin 4.1 (3.5-5.0) g/dL Lipase 32 (8-78) U/L Discharge Plan Discharge Clinical Impression: Gastroenteritis Patient Disposition: Home, Self-Care Instructions: Acute Nausea and Vomiting (ED), Acute Diarrhea (ED) Prescriptions: New pantoprazole [Protonix] 40 mg tablet,delayed release (DR/EC) 40 mg PO DAILY Qty: 20 0RF ondansetron 4 mg tablet,disintegrating 4 mg PO Q8H 4 Days Qty: 12 0RF No Action ondansetron 4 mg tablet,disintegrating 4 mg PO Q6-8H PRN (Reason: nausea and vomiting) Qty: 10 0RF famotidine [Pepcid] 20 mg tablet 20 mg PO BID Qty: 10 0RF Referrals: Physician,Nonstaff [Primary Care Provider] - 1 week
[2022-02-27 23:09] LABS: Glucose, Whole Blood 114 mg/dL (60-115)
[2022-02-28 00:10] VITALS: BP 111/62; PULSE 78; RESP 16; O2SAT 99
[2022-02-28] MEDS: 0.9 % Sodium Chloride 1,000 ML 999 ML IVCONT ×2 (00:12→00:40)
[2022-02-28] MEDS: Pantoprazole Sodium 40 MG/10 ML VIAL IVPUSH (00:12)
[2022-02-28] MEDS: ondansetron HCL 4 MG/2 ML VIAL IVPUSH (00:12)
[2022-02-28 00:32] LABS: MANUAL DIFF FLAG NO
[2022-02-28 00:33] LABS: Basophils Absolute Auto 0.1 X10*3/uL (0.0-0.2); Basophils Percent Auto 0.3 % (0-2); Eosinophils Absolute Auto 0.4 X10*3/uL (0.0-0.4); Eosinophils Percent Auto 2.1 % (0-4); Hematocrit 39.3 % (42.0-52.0); Hemoglobin 13.6 g/dl (14.0-18.0); Imm Gran Abs Auto 0.09 X10*3/uL (0.00-0.03); Imm Gran Pct Auto 0.5 % (0.0-0.4); Lymphocytes Absolute Auto 1.1 X10*3/uL (1.2-4.9); Lymphocytes Percent Auto 6.2 % (20-40); Mean Corpuscular HGB Conc 34.6 g/dl (31.0-36.0); Mean Corpuscular Hemoglobin 30.3 pg (27.0-33.0); Mean Corpuscular Volume 87.5 fL (80.0-98.0); Mean Platelet Volume 10.5 fL (9.4-12.4); Monocytes Absolute Auto 1.7 X10*3/uL (0.1-1.2); Monocytes Percent Auto 9.6 % (2-11); Neutrophils Absolute Auto 14.1 x10*3/uL (2.0-8.3); Neutrophils Percent Auto 81.3 % (45-73); Platelet Count 257 X10*3/uL (160-400); Red Blood Count 4.49 X10*6/uL (4.60-5.80); Red Cell Distribution Width 13.2 % (11.0-16.0); SCAN SMEAR FLAG 1; White Blood Count 17.3 X10*3/uL (4.8-10.8)
[2022-02-28 01:00] LABS: Alanine Aminotransferase 61 U/L (0-40); Albumin Level 4.1 g/dL (3.5-5.0); Alkaline Phosphatase 127 U/L (39-117); Anion Gap 13 (12-20); Aspartate Amino Transferase 40 U/L (5-37); Bilirubin Total 0.7 mg/dL (0.0-1.0); Blood Urea Nitrogen 17 mg/dL (9-16); Calcium 9.2 mg/dL (8.4-10.2); Carbon Dioxide 25 mmol/L (22-29); Chloride 104 mmol/L (96-108); Creatinine Clr Calc Pharmacy 121.8; Estimated Glomerular Filt Rate > 60; Glucose Random 121 mg/dL (60-115); Lipase 32 U/L (8-78); Sodium 138 mmol/L (135-145); Total Protein 7.1 g/dL (6.5-8.0)
[2022-02-28 04:00] VITALS: BP 111/62; PULSE 78; RESP 16; O2SAT 99
[2022-02-28 06:37] VITALS: PULSE 96; RESP 18; O2SAT 97
== END 2022-02-28 07:18 | disposition home or self-care (01) ==
PROVIDERS: Emergency Provider Emergency Medicine
DX: K52.9 Noninfective gastroenteritis and colitis, unspecified (principal)
CPT/HCPCS: 36415; 80053; 82947; 83690; 85025; 96361; 96374; 96375; 99283; 99284; J2405

== ENCOUNTER 2022-03-05 21:18 | Emergency (ER) | payer OTHER, SELFPAY ==
[2022-03-05 21:50] VITALS: BP 125/77; PULSE 90; RESP 16; TEMP 36.9; O2SAT 97; BMI 25.8
[2022-03-05 22:14] LABS: MANUAL DIFF FLAG NO
[2022-03-05 22:16] LABS: Basophils Percent Auto 0.3 % (0-2); Eosinophils Absolute Auto 0.3 X10*3/uL (0.0-0.4); Eosinophils Percent Auto 3.3 % (0-4); Hematocrit 37.6 % (42.0-52.0); Hemoglobin 12.5 g/dl (14.0-18.0); Imm Gran Abs Auto 0.06 X10*3/uL (0.00-0.03); Imm Gran Pct Auto 0.7 % (0.0-0.4); Lymphocytes Absolute Auto 3.5 X10*3/uL (1.2-4.9); Lymphocytes Percent Auto 38.8 % (20-40); Mean Corpuscular HGB Conc 33.2 g/dl (31.0-36.0); Mean Corpuscular Hemoglobin 29.9 pg (27.0-33.0); Mean Platelet Volume 10.1 fL (9.4-12.4); Monocytes Absolute Auto 0.7 X10*3/uL (0.1-1.2); Monocytes Percent Auto 7.9 % (2-11); Neutrophils Absolute Auto 4.4 x10*3/uL (2.0-8.3); Platelet Count 251 X10*3/uL (160-400); Red Blood Count 4.18 X10*6/uL (4.60-5.80); Red Cell Distribution Width 13.4 % (11.0-16.0); White Blood Count 8.9 X10*3/uL (4.8-10.8)
[2022-03-05 22:27] LABS: COVID-19 Test Negative (Negative)
[2022-03-05 22:30] LABS: Alanine Aminotransferase 32 U/L (0-40); Albumin Level 4.1 g/dL (3.5-5.0); Alkaline Phosphatase 104 U/L (39-117); Anion Gap 12 (12-20); Aspartate Amino Transferase 25 U/L (5-37); Bilirubin Total 0.2 mg/dL (0.0-1.0); Blood Urea Nitrogen 10 mg/dL (9-16); Calcium 8.9 mg/dL (8.4-10.2); Carbon Dioxide 23 mmol/L (22-29); Chloride 108 mmol/L (96-108); Creatinine Clr Calc Pharmacy 109.5; Estimated Glomerular Filt Rate > 60; Glucose Random 154 mg/dL (60-115); Potassium 3.3 mmol/L (3.3-5.1); Sodium 140 mmol/L (135-145); Total Protein 6.7 g/dL (6.5-8.0)
--- NOTE | 2022-03-06 00:53 | ED_ITS ---
HPI - Abdominal Pain General Chief Complaint: Abdominal Pain Stated Complaint: Abd pain Time Seen by Provider: 03/06/22 00:49 Source: patient Mode of arrival: ambulatory Limitations: no limitations History of Present Illness HPI narrative: Patient homeless with multiple complaints from the toothache to the abdominal pain no nausea no vomiting no fever complaining of 1 or 2 times had diarrhea when arrived in the ER patient was sleeping in the bed without any distress Related Data Previous Rx's Medication Instructions Recorded famotidine 20 mg tablet (Pepcid) 20 mg PO BID gerd #10 tabs 02/16/22 ondansetron 4 mg disintegrating 4 mg PO Q6-8H PRN nausea and 02/16/22 tablet vomiting #10 tabs ondansetron 4 mg disintegrating 4 mg PO Q8H 4 days #12 tabs 02/28/22 tablet pantoprazole 40 mg tablet,delayed 40 mg PO DAILY #20 tabs 02/28/22 release (Protonix) Allergies Allergy/AdvReac Type Severity Reaction Status Date / Time Penicillins [PENICILLINS] Allergy Unknown [place] Verified 03/05/22 21:55 haloperidol [From Haldol] Allergy Unknown Verified 03/05/22 21:55 Review of Systems Review of Systems Yes all other systems are reviewed and are negative [facility] Past Medical History Medical History Mood disorder Polysubstance abuse Social History Social History Alcohol intake: former Patient Tobacco Use Status: Never used Tobacco Substance Use Type: Crack/Cocaine and Marijuana Advance Directives: No Physical Exam ED Vital Signs: Vital Signs - 24 hr 03/05/22 21:50 Temperature 98.4 F Pulse Rate 90 Respiratory Rate 16 Blood Pressure 125/77 Pulse Oximetry 97 Oxygen Delivery Method Room Air BMI result Body Mass Index 25.8 Appearance: Alert. Oriented X3. No acute distress. Eyes: PERRLA, ENT: Pharynx normal. Oral Mucosa moist diffuse dental caries no gum swelling Neck: Normal inspection. Neck supple. CVS: Normal heart rate and rhythm. Pulses normal. Respiratory: No respiratory distress. Equal air entry bilateral, no wheezing/rales/rhonchi Abdomen: Soft mild diffuse tenderness no rebound tenderness or guarding Bowel sounds are present, no mass palpable, no CVA tenderness Skin: Skin warm and dry. Normal skin color. Normal skin turgor. Extremities: No lower extremity edema. No calf tenderness Neuro: Oriented X 3. No motor deficit. No sensory deficit.No cerebellar signs , cranial nerves II-XII intact MDM - Abdominal Pain MDM Narrative Medical decision making narrative: Patient nonspecific complaints seems like came here to sleep as he is homeless asking for food will discharge patient home. Labs are stable patient was seen here on 02/16 for same complaints had CT scan of the abdomen which was negative Lab Data Attestation: I reviewed the patient's lab results. Result diagrams: 03/05/22 22:08 03/05/22 22:08 Labs: Lab Results 03/05/22 03/05/22 03/05/22 Range/Units 22:00 22:08 22:08 WBC 8.9 (4.8-10.8) X10*3/uL RBC 4.18 L (4.60-5.80) X10*6/uL Hgb 12.5 L (14.0-18.0) g/dl Hct 37.6 L (42.0-52.0) % MCV 90.0 (80.0-98.0) fL MCH 29.9 (27.0-33.0) pg MCHC 33.2 (31.0-36.0) g/dl RDW 13.4 (11.0-16.0) % Plt Count 251 (160-400) X10*3/uL MPV 10.1 (9.4-12.4) fL Immature Gran % (Auto) 0.7 H (0.0-0.4) % Neut % (Auto) 49.0 (45-73) % Lymph % (Auto) 38.8 (20-40) % [place] % (Auto) 7.9 (2-11) % Eos % (Auto) 3.3 (0-4) % Baso % (Auto) 0.3 (0-2) % Lymph # (Auto) 3.5 (1.2-4.9) X10*3/uL [place] # (Auto) 0.7 (0.1-1.2) X10*3/uL Eos # (Auto) 0.3 (0.0-0.4) X10*3/uL Baso # (Auto) 0.0 (0.0-0.2) X10*3/uL Abs Immat Gran (auto) 0.06 H (0.00-0.03) X10*3/uL Absolute Neuts (auto) 4.4 (2.0-8.3) x10*3/uL Absolute Nucleated RBC 0.000 (0.0-0.012) X10*3/uL Nucleated RBC % (auto) 0.0 (0.0-0.2) /100WBC Sodium 140 (135-145) mmol/L Potassium 3.3 (3.3-5.1) mmol/L Chloride 108 (96-108) mmol/L Carbon Dioxide 23 (22-29) mmol/L Anion Gap 12 (12-20) BUN 10 (9-16) mg/dL Creatinine 0.89 (0.5-1.4) mg/dL Estim Creat Clear Calc 109.5 Estimated GFR > 60 Random Glucose 154 H (60-115) mg/dL Calcium 8.9 (8.4-10.2) mg/dL Total Bilirubin 0.2 (0.0-1.0) mg/dL AST 25 (5-37) U/L ALT 32 (0-40) U/L Alkaline Phosphatase 104 (39-117) U/L Total Protein 6.7 (6.5-8.0) g/dL Albumin 4.1 (3.5-5.0) g/dL COVID-19 (SYLVAIN) Negative (Negative) COVID-19 Clin Com See Note Discharge Plan Discharge Clinical Impression: Abdominal pain Patient Disposition: Home, Self-Care Instructions: Abdominal Pain (ED) Additional Instructions: Drink plenty of fluids Follow-up with PCP if any concerns Prescriptions: No Action ondansetron 4 mg tablet,disintegrating 4 mg PO Q6-8H PRN (Reason: nausea and vomiting) Qty: 10 0RF famotidine [Pepcid] 20 mg tablet 20 mg PO BID Qty: 10 0RF pantoprazole [Protonix] 40 mg tablet,delayed release (DR/EC) 40 mg PO DAILY Qty: 20 0RF ondansetron 4 mg tablet,disintegrating 4 mg PO Q8H 4 Days Qty: 12 0RF
== END 2022-03-06 01:19 | disposition home or self-care (01) ==
PROVIDERS: Emergency Provider Internal Medicine
DX: R10.9 Unspecified abdominal pain (principal); Z20.822 Contact with and (suspected) exposure to COVID-19; F19.10 Other psychoactive substance abuse, uncomplicated
CPT/HCPCS: 80053; 85025; 87635; 99282; 99283

== ENCOUNTER 2022-03-06 22:27 | Emergency (ER) | payer OTHER, SELFPAY ==
[2022-03-06 22:41] VITALS: BMI 24.2
[2022-03-06 22:42] VITALS: BP 117/60; PULSE 85; RESP 16; TEMP 36.4; O2SAT 95; BMI 24.2
--- NOTE | 2022-03-06 22:42 | ECG_ITS ---
Test Reason : CHEST PAIN Blood Pressure : / mmHG Vent. Rate : 079 BPM Atrial Rate : 079 BPM P-R Int : 154 ms QRS Dur : 084 ms QT Int : 364 ms P-R-T Axes : 045 051 047 degrees QTc Int : 417 ms Normal sinus rhythm Normal ECG When compared with ECG of 21-FEB-2022 14:01, No significant change was found Referred By: Generic ED Physician Electronically Signed By:Edmund Kwong
[2022-03-06 23:15] LABS: COVID-19 Test Negative (Negative)
== END 2022-03-07 00:42 | disposition left against medical advice (07) ==
PROVIDERS: Emergency Provider Emergency Medicine
DX: R07.9 Chest pain, unspecified (principal); Z20.822 Contact with and (suspected) exposure to COVID-19
CPT/HCPCS: 87635; 93005; 99282; 99283

== ENCOUNTER 2022-03-11 22:48 | Emergency (ER) | payer OTHER, SELFPAY ==
--- NOTE | ~2022-03-11 | XR_ITS ---
EXAMINATION: XR CHEST CLINICAL INFORMATION: Chest pain COMPARISON: 02/11/2022 TECHNIQUE: Frontal view of the chest was obtained. FINDINGS: The lungs are well expanded. There is no focal consolidation, edema, or effusion. No pneumothorax. The cardiomediastinal silhouette is within normal limits. No acute osseous abnormality. XR/XR chest 1V IMPRESSION: Clear lungs.
[2022-03-11 22:57] VITALS: BMI 25.8
--- NOTE | 2022-03-11 22:58 | ECG_ITS ---
Test Reason : cp Blood Pressure : / mmHG Vent. Rate : 099 BPM Atrial Rate : 099 BPM P-R Int : 152 ms QRS Dur : 080 ms QT Int : 342 ms P-R-T Axes : 064 079 066 degrees QTc Int : 438 ms Normal sinus rhythm Normal ECG When compared with ECG of 06-MAR-2022 22:38, No significant change was found Referred By: Generic ED Physician Electronically Signed By:SANDY ISABEL MD
[2022-03-11 23:45] VITALS: BP 121/85; PULSE 85; RESP 16; TEMP 37; O2SAT 97; BMI 24.2
[2022-03-11 23:56] LABS: Hematocrit 39.9 % (42.0-52.0); Hemoglobin 13.6 g/dl (14.0-18.0); Mean Corpuscular HGB Conc 34.1 g/dl (31.0-36.0); Mean Corpuscular Hemoglobin 30.2 pg (27.0-33.0); Mean Corpuscular Volume 88.5 fL (80.0-98.0); Platelet Count 273 X10*3/uL (160-400); Red Blood Count 4.51 X10*6/uL (4.60-5.80); Red Cell Distribution Width 13.3 % (11.0-16.0); White Blood Count 12.6 X10*3/uL (4.8-10.8)
--- NOTE | 2022-03-12 00:04 | PC.NURSE ---
pt has strange affect. when brought back from the waiting room pt repeated asked me do you think this is cancer?! when asked to clarify pt stated cp has been on going for two weeks. pt appears to be talking to self, repeating questions.
[2022-03-12 00:15] LABS: Anion Gap 14 (12-20); Blood Urea Nitrogen 10 mg/dL (9-16); Calcium 9.5 mg/dL (8.4-10.2); Carbon Dioxide 24 mmol/L (22-29); Chloride 105 mmol/L (96-108); Creatinine Clr Calc Pharmacy 109.5; Estimated Glomerular Filt Rate > 60; Glucose Random 117 mg/dL (60-115); Potassium 3.7 mmol/L (3.3-5.1); Sodium 139 mmol/L (135-145)
[2022-03-12 00:20] LABS: Troponin-I High Sensitivity < 3.5 ng/L (<3.5-35.0)
--- NOTE | 2022-03-12 00:24 | ED_ITS ---
HPI - Chest Pain General Chief Complaint: Chest Pain Stated Complaint: Chest discomfort Time Seen by Provider: 03/12/22 00:24 History of Present Illness HPI narrative: Patient is a 31-year-old male presents today with having chest pain. The chest pain is mid chest. Not associated with shortness of breath no diaphoresis. No fever no chills no cough no congestion. Positive history of pacing. No history of hypertension, high cholesterol, smoking, mi. Patient from home. Pain is made worse with certain position. There is no exertional component. Nothing really makes it better. No vomiting. No diaphoresis. No history of blood clots no leg swelling. No travel history. Related Data Previous Rx's Medication Instructions Recorded famotidine 20 mg tablet (Pepcid) 20 mg PO BID gerd #10 tabs 02/16/22 ondansetron 4 mg disintegrating 4 mg PO Q6-8H PRN nausea and 02/16/22 tablet vomiting #10 tabs ondansetron 4 mg disintegrating 4 mg PO Q8H 4 days #12 tabs 02/28/22 tablet pantoprazole 40 mg tablet,delayed 40 mg PO DAILY #20 tabs 02/28/22 release (Protonix) Allergies Allergy/AdvReac Type Severity Reaction Status Date / Time Penicillins [PENICILLINS] Allergy Unknown [place] Verified 03/11/22 23:47 haloperidol [From Haldol] Allergy Unknown Verified 03/11/22 23:47 Review of Systems Review of Systems: Positive chest pain Yes all other systems are reviewed and are negative PMFSH Past Medical History Attestation statement: The following information was validated with the patient. Medical History Mood disorder Polysubstance abuse Social History Social History Alcohol intake: former Patient Tobacco Use Status: Never used Tobacco Substance Use Type: Crack/Cocaine and Marijuana Advance Directives: No Physical Exam Vital Signs: Vital Signs: Last Vital Signs Temp 98.6 F 03/11/22 23:45 Pulse 85 03/11/22 23:45 Resp 16 03/11/22 23:45 BP 121/85 03/11/22 23:45 Pulse Ox 97 03/11/22 23:45 O2 Del Method 03/11/22 23:45 BMI result Body Mass Index 24.2 Appearance: Alert. Oriented X3. No acute distress. Eyes: Pupils equal, round and reactive to light. ENT: Pharynx normal. Neck: Normal inspection. Neck supple. No lymph nodes noted. No crepitus CVS: Normal heart rate and rhythm. Pulses normal. Normal S1 and S2 Respiratory: No respiratory distress. Breath sounds normal. No Wheezing. No rales Abdomen: Soft and nontender. No rigidity. No distention. good BS x4 Skin: Skin warm and dry. Normal skin color. Normal skin turgor. Extremities: No lower extremity edema. Neurovascular intact to all extremities. No Lacerations. No Rash Neuro: Oriented X 3. No motor deficit. No sensory deficit. Moving all extermities. No slurred speech MDM - Chest Pain MDM Narrative Medical decision making narrative: EKG showed a sinus pattern heart rate is 100 PA QRS QT within normal limits his acute ST segment elevation 1 cardiac risk being patient is a smoker. Patient otherwise history not consistent with ACS heart score is less than 3. Chest x- ray showed no evidence of pneumonia no pneumothorax. Currently in stable condition will discharge patient home follow-up outpatient basis Medical Records Data Attestation: I reviewed the patient's medical records. Lab Data Attestation: I reviewed the patient's lab results. Result diagrams: 03/11/22 23:52 03/11/22 23:52 Labs: Lab Results 03/11/22 03/11/22 03/11/22 Range/Units 23:52 23:52 23:52 WBC 12.6 H (4.8-10.8) X10*3/uL RBC 4.51 L (4.60-5.80) X10*6/uL Hgb 13.6 L (14.0-18.0) g/dl Hct 39.9 L (42.0-52.0) % MCV 88.5 (80.0-98.0) fL MCH 30.2 (27.0-33.0) pg MCHC 34.1 (31.0-36.0) g/dl RDW 13.3 (11.0-16.0) % Plt Count 273 (160-400) X10*3/uL MPV 10.0 (9.4-12.4) fL Absolute Nucleated RBC 0.000 (0.0-0.012) X10*3/uL Nucleated RBC % (auto) 0.0 (0.0-0.2) /100WBC Sodium 139 (135-145) mmol/L Potassium 3.7 (3.3-5.1) mmol/L Chloride 105 (96-108) mmol/L Carbon Dioxide 24 (22-29) mmol/L Anion Gap 14 (12-20) BUN 10 (9-16) mg/dL Creatinine 0.89 (0.5-1.4) mg/dL Estim Creat Clear Calc 109.5 Estimated GFR > 60 Random Glucose 117 H (60-115) mg/dL Calcium 9.5 D (8.4-10.2) mg/dL Troponin I High Sens < 3.5 (<3.5-35.0) ng/L Discharge Plan Discharge Clinical Impression: Chest pain Patient Disposition: Home, Self-Care Instructions: Chest Pain (ED) Prescriptions: No Action ondansetron 4 mg tablet,disintegrating 4 mg PO Q6-8H PRN (Reason: nausea and vomiting) Qty: 10 0RF famotidine [Pepcid] 20 mg tablet 20 mg PO BID Qty: 10 0RF pantoprazole [Protonix] 40 mg tablet,delayed release (DR/EC) 40 mg PO DAILY Qty: 20 0RF ondansetron 4 mg tablet,disintegrating 4 mg PO Q8H 4 Days Qty: 12 0RF Referrals: Physician,None [Primary Care Provider] -
== END 2022-03-12 00:35 | disposition home or self-care (01) ==
PROVIDERS: Emergency Provider Emergency Medicine Emergency Medical Services
DX: R07.9 Chest pain, unspecified (principal); F12.90 Cannabis use, unspecified, uncomplicated; F19.10 Other psychoactive substance abuse, uncomplicated
CPT/HCPCS: 36415; 71045; 80048; 84484; 85027; 93005; 99283

== ENCOUNTER 2022-03-12 10:57 | Emergency (ER) | payer OTHER, SELFPAY | END 2022-03-12 12:59 | disposition left against medical advice (07) | PROVIDERS: Emergency Provider Emergency Medicine | DX: R10.9 Unspecified abdominal pain (principal) ==

== ENCOUNTER 2022-03-15 22:24 | Emergency (ER) | payer OTHER, SELFPAY ==
--- NOTE | 2022-03-15 | ECG_ITS ---
Test Reason : cp Blood Pressure : / mmHG Vent. Rate : 079 BPM Atrial Rate : 079 BPM P-R Int : 154 ms QRS Dur : 082 ms QT Int : 338 ms P-R-T Axes : 057 057 050 degrees QTc Int : 387 ms Normal sinus rhythm Normal ECG When compared with ECG of 11-MAR-2022 22:51, No significant change was found Referred By: Generic ED Physician Electronically Signed By:SANDY ISABEL MD
[2022-03-15 22:31] VITALS: BP 107/69; BP 124/80; PULSE 82; PULSE 86; RESP 16; TEMP 36.5; O2SAT 97; O2SAT 98; BMI 22.8
[2022-03-15 23:00] LABS: MANUAL DIFF FLAG NO
[2022-03-15 23:02] LABS: Basophils Absolute Auto 0.1 X10*3/uL (0.0-0.2); Basophils Percent Auto 0.5 % (0-2); Eosinophils Absolute Auto 0.2 X10*3/uL (0.0-0.4); Eosinophils Percent Auto 2.2 % (0-4); Hematocrit 43.1 % (42.0-52.0); Hemoglobin 14.1 g/dl (14.0-18.0); Imm Gran Abs Auto 0.03 X10*3/uL (0.00-0.03); Imm Gran Pct Auto 0.3 % (0.0-0.4); Lymphocytes Absolute Auto 2.2 X10*3/uL (1.2-4.9); Lymphocytes Percent Auto 22.9 % (20-40); Mean Corpuscular HGB Conc 32.7 g/dl (31.0-36.0); Mean Corpuscular Hemoglobin 29.4 pg (27.0-33.0); Mean Corpuscular Volume 89.8 fL (80.0-98.0); Mean Platelet Volume 10.6 fL (9.4-12.4); Monocytes Absolute Auto 0.6 X10*3/uL (0.1-1.2); Monocytes Percent Auto 6.8 % (2-11); Neutrophils Absolute Auto 6.3 x10*3/uL (2.0-8.3); Neutrophils Percent Auto 67.3 % (45-73); Platelet Count 219 X10*3/uL (160-400); Red Cell Distribution Width 13.2 % (11.0-16.0); White Blood Count 9.4 X10*3/uL (4.8-10.8)
[2022-03-15 23:24] LABS: Alanine Aminotransferase 36 U/L (0-40); Albumin Level 4.4 g/dL (3.5-5.0); Alkaline Phosphatase 119 U/L (39-117); Anion Gap 16 (12-20); Aspartate Amino Transferase 34 U/L (5-37); Bilirubin Total 0.3 mg/dL (0.0-1.0); Blood Urea Nitrogen 17 mg/dL (9-16); Calcium 9.4 mg/dL (8.4-10.2); Carbon Dioxide 23 mmol/L (22-29); Chloride 103 mmol/L (96-108); Creatinine Clr Calc Pharmacy 128.3; Estimated Glomerular Filt Rate > 60; Glucose Random 90 mg/dL (60-115); Potassium 5.1 mmol/L (3.3-5.1); Sodium 137 mmol/L (135-145); Total Protein 7.7 g/dL (6.5-8.0)
--- NOTE | 2022-03-16 00:41 | PC.NURSE ---
Pt wasn't in the WR when called to do the redraw.
== END 2022-03-16 04:54 | disposition left against medical advice (07) ==
PROVIDERS: Emergency Provider Emergency Medicine
DX: R07.89 Other chest pain (principal); Z79.899 Other long term (current) drug therapy
CPT/HCPCS: 36415; 80053; 85025; 93005; 99283

== ENCOUNTER 2022-03-20 06:35 | Emergency (ER) | payer OTHER, SELFPAY ==
[2022-03-20 07:11] VITALS: BP 110/64; PULSE 69; RESP 18; TEMP 36.6; O2SAT 98; BMI 24.2
== END 2022-03-20 13:20 | disposition left against medical advice (07) ==
PROVIDERS: Emergency Provider Emergency Medicine
DX: R10.9 Unspecified abdominal pain (principal); F19.10 Other psychoactive substance abuse, uncomplicated; F12.90 Cannabis use, unspecified, uncomplicated
CPT/HCPCS: 99281

== ENCOUNTER 2022-04-04 10:55 | Emergency (ER) | payer OTHER, SELFPAY ==
[2022-04-04 12:08] VITALS: BMI 25.8
[2022-04-04 12:15] VITALS: BP 113/70; PULSE 70; RESP 12; TEMP 36.6; O2SAT 97
[2022-04-04 13:53] LABS: Anion Gap 15 (12-20); Blood Urea Nitrogen 12 mg/dL (9-16); Carbon Dioxide 21 mmol/L (22-29); Chloride 109 mmol/L (96-108); Creatinine Clr Calc Pharmacy 110.7; Estimated Glomerular Filt Rate > 60; Glucose Random 120 mg/dL (60-115); Potassium 3.8 mmol/L (3.3-5.1); Sodium 141 mmol/L (135-145)
== END 2022-04-04 17:40 | disposition left against medical advice (07) ==
PROVIDERS: Emergency Provider Emergency Medicine
DX: R10.9 Unspecified abdominal pain (principal); Z79.899 Other long term (current) drug therapy
CPT/HCPCS: 36415; 80048; 99282; 99283

== ENCOUNTER 2022-04-18 15:08 | Emergency (ER) | payer OTHER, SELFPAY ==
[2022-04-18 15:18] VITALS: RESP 18; BMI 23.0
--- NOTE | 2022-04-18 15:19 | ED.PSYCH ---
HPI - Psych General Chief Complaint: ETOH/Substance Use Stated Complaint: overdose Time Seen by Provider: 04/18/22 15:10 Source: patient and old records reviewed Mode of arrival: EMS Limitations: no limitations History of Present Illness complaint: substance abuse Onset (ago): month(s) Duration: intermittent History of same: Yes Relieving factors: none Exacerbating factors: none Context: other (denie using states he is pissed because a friend gave him narcan - patient was awake on EMS arrival ) Associated psychiatric symptoms: none Associated symptoms: denies other symptoms Treatments prior to arrival: other (supposedly given [place] narcan 4mg by friend) Related Data Previous Rx's Medication Instructions Recorded famotidine 20 mg tablet (Pepcid) 20 mg PO BID gerd #10 tabs 02/16/22 ondansetron 4 mg disintegrating 4 mg PO Q6-8H PRN nausea and 02/16/22 tablet vomiting #10 tabs ondansetron 4 mg disintegrating 4 mg PO Q8H 4 days #12 tabs 02/28/22 tablet pantoprazole 40 mg tablet,delayed 40 mg PO DAILY #20 tabs 02/28/22 release (Protonix) Allergies Allergy/AdvReac Type Severity Reaction Status Date / Time Penicillins [PENICILLINS] Allergy Unknown [place] Verified 04/04/22 12:14 haloperidol [From Haldol] Allergy Unknown Verified 03/11/22 23:47 Review of Systems Review of Systems: ROS unable to be obtained due to agitation PMFSH Past Medical History Medical History Mood disorder Polysubstance abuse Social History Social History Alcohol intake: former Patient Tobacco Use Status: Never used Tobacco Substance Use Type: Crack/Cocaine and Marijuana Advance Directives: No Advance Directives Information Provided: No Physical Exam Vital Signs: Vital Signs: Last Vital Signs Resp 18 04/18/22 15:18 O2 Del Method 04/18/22 15:18 BMI result Body Mass Index 23.0 Appearance: Alert. Oriented X3. No acute distress. agitaed with security at first Eyes: Pupils equal, round and reactive to light. Dilated 5mm ENT: Pharynx normal. Atraumatic Neck: Normal inspection. Neck supple. CVS: Pulses normal. Respiratory: No respiratory distress. Abdomen: atraumatic Skin: Skin warm and dry. Normal skin color. Extremities: No lower extremity edema. Neuro: Oriented X 3. No motor deficit. No sensory deficit. MDM - Psych MDM Narrative Medical decision making narrative: 31 yo male with hx of prior visits for malingering, substance abuse - he came to ED after a friend gave him narcan but he denies use and was awake on EMS arrival - he is very agitated with us and is refusing to stay he was aggressive with staff - at this time during interview he states he wants to leave, he eloped from the ED. Discharge Plan Discharge Clinical Impression: Active substance abuse Patient Disposition: Elopement Prescriptions: No Action ondansetron 4 mg tablet,disintegrating 4 mg PO Q6-8H PRN (Reason: nausea and vomiting) Qty: 10 0RF famotidine [Pepcid] 20 mg tablet 20 mg PO BID Qty: 10 0RF pantoprazole [Protonix] 40 mg tablet,delayed release (DR/EC) 40 mg PO DAILY Qty: 20 0RF ondansetron 4 mg tablet,disintegrating 4 mg PO Q8H 4 Days Qty: 12 0RF Interventions: ED Discharge Assessment Last Done: 04/18/22 15:15 Discharge Date/Time: 04/18/22 15:20
== END 2022-04-18 15:20 | disposition left against medical advice (07) ==
PROVIDERS: Emergency Provider Emergency Medicine
DX: F19.10 Other psychoactive substance abuse, uncomplicated (principal); R45.1 Restlessness and agitation; R45.6 Violent behavior
CPT/HCPCS: 99282

== ENCOUNTER 2022-04-18 20:50 | Emergency (ER) | payer OTHER, SELFPAY ==
[2022-04-18 21:00] VITALS: BMI 24.3
--- NOTE | 2022-04-18 21:06 | ED_ITS ---
HPI - General Adult General Stated complaint: AMS/Drug Use Time Seen by Provider: 04/18/22 21:04 Source: patient, EMS and police Mode of arrival: EMS Limitations: other (Polysubstance abuse) History of Present Illness HPI narrative: This is a 31-year-old male history of mood disorder, polysubstance abuse presenting to the emergency department [place] with erretic behavior. Somebody called police to do a well-being check on patient, he was advised to come into the emergency department to be evaluated. He tells me does not think he hit his head or fell however on shore. Poor historian. He tells me he did just about every drug under the sun, and he tells me he is buying [id number] medicines to make him high. He tells me the reason he was [place] the bike [place] is because his son was home with his baby lynnette and he does not like doing drugs around the child. He denies SI and HI. Denies visual, auditory and tactile hallucinations. Denies medical complaints at this time. Related Data Previous Rx's Medication Instructions Recorded famotidine 20 mg tablet (Pepcid) 20 mg PO BID gerd #10 tabs 02/16/22 ondansetron 4 mg disintegrating 4 mg PO Q6-8H PRN nausea and 02/16/22 tablet vomiting #10 tabs ondansetron 4 mg disintegrating 4 mg PO Q8H 4 days #12 tabs 02/28/22 tablet pantoprazole 40 mg tablet,delayed 40 mg PO DAILY #20 tabs 02/28/22 release (Protonix) Allergies Allergy/AdvReac Type Severity Reaction Status Date / Time Penicillins [PENICILLINS] [facility] Ver[facility] 04/04/22 12:14 haloperidol [From Haldol] Allergy Unknown Verified 03/11/22 23:47 Review of Systems Review of Systems: Constitutional : No Weight loss, No Fever, No Chills, No Fatigue, No Malaise ENT/Mouth : No sore throat, No Rhinorrhea Eyes: No Eye Pain, No Swelling, No Redness Cardiovascular : No Chest Pain, No SOB, No Dyspnea on Exertion, No Orthopnea, No Edema, No Palpitations Respiratory : No Cough, No Sputum, No Wheezing Gastrointestinal : No Nausea, No Vomiting, No Diarrhea, No Constipation, No abdominal Pain, No Hematochezia, No Melena Genitourinary : No Dysuria, No Urinary Frequency, No Hematuria, Musculoskeletal : No joint pain, No Myalgias, No Joint Swelling Skin : No Skin Lesions, No rash Neuro : No Weakness, No Numbness, No Dizziness, No Headache Psych : No Anxiety/Panic, No Depression, No SI or HI All other systems reviewed and are negative Yes all other systems are reviewed and are negative [facility] Past Medical History Attestation statement: The following information was validated with the patient. Source: old records reviewed and nursing notes reviewed Medical History Mood disorder Polysubstance abuse Social History Social History Alcohol intake: former Patient Tobacco Use Status: Never used Tobacco Substance Use Type: Crack/Cocaine and Marijuana Advance Directives: No Advance Directives Information Provided: No Physical Exam ED Vital Signs: vss Appearance: Alert.? Oriented X3.? No acute distress.? Head: Normocephalic, atraumatic, no step-offs or deformities Eyes: Pupils equal, round and reactive to light.?B/l pupils pinpoint ENT: Pharynx normal.? Neck: Normal inspection.? Neck supple.? CVS: Normal heart rate and rhythm.? Pulses normal.? Respiratory: No respiratory distress.? Breath sounds normal.? Abdomen: Soft and nontender.? Skin: Skin warm and dry.? Normal skin color.? Normal skin turgor.? Extremities: No lower extremity edema.? No calf ttp. 5/5 strength to bilateral upper and lower extremities Back: No midline tenderness, no C-spine tenderness, full range of motion, no CVA tenderness bilaterally Neuro: Oriented X 3.? No motor deficit.? No sensory deficit. CN 2-12 intact Course Reevaluation(s) Reevaluation #1: Patient refusing everything, labs, covid, urine, change control analyst. Patient was DC by nursing staff against my advise. Patient walking out with steady gait. Time: 21:33 Medical Decision Making MDM Narrative Medical decision making narrative: 2104 31 yo m presents w/ presumed polysubstance abuse, was found by PD with erretic behavior, unsure if fell and hit his head. Upon examination patient appears to be under the influence of drugs, patient going off on tangents, bilateral pupils pinpoint. Regular rate and rhythm. Lungs clear. Abdomen soft nontender nondistended. Plan- acetaminophen, salicylate, MALDONADO, COVID, head CT. Medical Records Medical records reviewed: Yes I reviewed the patient's medical records. Lab Data Lab results reviewed: Yes I reviewed the patient's lab results. Critical Care Time Critical Care Time Critical Care Time: No Discharge Plan Discharge Clinical Impression: Active substance abuse Patient Disposition: Left Against Medical Advice Instructions: Polysubstance Abuse (ED) Additional Instructions: Take your medications as prescribed. If you were prescribed antibiotics today, it is important that you take your medication to their entirety, do not skip any doses, do not finish them early. Follow-up with your primary care provider this week. Suicidal or homicidal ideation Return to the emergency department with new or worsening symptoms. In case of emergency call 911 Prescriptions: No Action ondansetron 4 mg tablet,disintegrating 4 mg PO Q6-8H PRN (Reason: nausea and vomiting) Qty: 10 0RF famotidine [Pepcid] 20 mg tablet 20 mg PO BID Qty: 10 0RF pantoprazole [Protonix] 40 mg tablet,delayed release (DR/EC) 40 mg PO DAILY Qty: 20 0RF ondansetron 4 mg tablet,disintegrating 4 mg PO Q8H 4 Days Qty: 12 0RF Stand Alone Forms: Against Medical Advice
--- NOTE | 2022-04-18 21:29 | PC.NURSE ---
PT SPEAKING BELLIGERENTLY IN HALLWAY, REFUSING CHANGEOVER AND INTERVENTION BY STAFF. PT APPROACHED BY NUMEROUS MEMBERS OF STAFF, BECOMING INCREASINGLY AGITATED WITH STAFF. PT CONFIRMED CONSUMPTION OF OPIATES AND EDWINA THIS EVENING, WAS NOT NARCAN'D ON SCENE. STATED HE HAD NOT CONSUMED OTC COUGH MEDICINE IN SEVERAL DAYS. PT ARRIVED A&OX4, WITH PINPOINT PUPILS, ANSWERING QUESTIONS APPROPRIATELY AND DEMANDING TO BE DISCHARGED. PT WAS PROVIDED WITH AMA PAPERWORK, SIGNING OFF WITH NO ISSUE, HAVING BEEN EXPLAINED RATIONALE FOR NEED FOR FURTHER MEDICAL EVALUATION. PA AWARE OF PT SIGNING OUT. PT AMBULATING INDEPENDENTLY AND STEADILY TO EXIT, ESCORTED BY SECURITY AND NS SALES LEDGER CLERK.
== END 2022-04-18 21:48 | disposition left against medical advice (07) ==
PROVIDERS: Emergency Provider Emergency Medicine Emergency Medical Services
DX: F19.10 Other psychoactive substance abuse, uncomplicated (principal); F39 Unspecified mood [affective] disorder; Z79.899 Other long term (current) drug therapy
CPT/HCPCS: 99282

== ENCOUNTER 2022-06-13 20:25 | Emergency (ER) | payer OTHER, SELFPAY ==
--- NOTE | 2022-06-13 | ECG_ITS ---
Test Reason : repeat ekg Blood Pressure : / mmHG Vent. Rate : 087 BPM Atrial Rate : 087 BPM P-R Int : 152 ms QRS Dur : 084 ms QT Int : 378 ms P-R-T Axes : 002 -05 002 degrees QTc Int : 454 ms Normal sinus rhythm Possible Left atrial enlargement Borderline ECG When compared with ECG of 15-MAR-2022 22:32, Questionable change in QRS axis ST no longer elevated in Inferior leads T wave inversion no longer evident in Inferior leads QT has lengthened Referred By: Generic ED Physician Electronically Signed By:MORA COTTON MD
--- NOTE | ~2022-06-13 | XR_ITS ---
EXAMINATION: XR CHEST CLINICAL INFORMATION: Chest pain COMPARISON: 03/11/2022 TECHNIQUE: Frontal view of the chest was obtained. FINDINGS: The lungs are clear with no focal consolidation. No evidence of pneumothorax, pulmonary edema, or pleural effusions. The cardiomediastinal silhouette is unremarkable. No acute osseous findings. XR/XR chest 1V IMPRESSION: No acute cardiopulmonary findings.
--- NOTE | 2022-06-13 20:31 | ECG_ITS ---
Test Reason : cp Blood Pressure : / mmHG Vent. Rate : 093 BPM Atrial Rate : 093 BPM P-R Int : 200 ms QRS Dur : 106 ms QT Int : 378 ms P-R-T Axes : 000 093 016 degrees QTc Int : 469 ms Poor data quality Normal sinus rhythm Rightward axis Incomplete right bundle branch block T wave abnormality, consider inferolateral ischemia Abnormal ECG When compared with ECG of 15-MAR-2022 22:32, QRS duration has increased T wave inversion now evident in Inferior leads T wave inversion now evident in Lateral leads Referred By: Generic ED Physician Electronically Signed By:MORA COTTON MD
[2022-06-13 21:37] LABS: Hematocrit 40.1 % (42.0-52.0); Hemoglobin 13.8 g/dl (14.0-18.0); Mean Corpuscular HGB Conc 34.4 g/dl (31.0-36.0); Mean Corpuscular Hemoglobin 30.1 pg (27.0-33.0); Mean Corpuscular Volume 87.6 fL (80.0-98.0); Mean Platelet Volume 10.1 fL (9.4-12.4); Platelet Count 313 X10*3/uL (160-400); Red Blood Count 4.58 X10*6/uL (4.60-5.80); White Blood Count 14.2 X10*3/uL (4.8-10.8)
[2022-06-13 21:42] VITALS: BP 134/76; PULSE 88; RESP 14; TEMP 36.9; O2SAT 99; BMI 25.0
[2022-06-13 21:59] LABS: Alanine Aminotransferase 29 U/L (0-40); Albumin Level 4.7 g/dL (3.5-5.0); Alkaline Phosphatase 111 U/L (39-117); Anion Gap 19 (12-20); Aspartate Amino Transferase 31 U/L (5-37); Bilirubin Total 0.3 mg/dL (0.0-1.0); Blood Urea Nitrogen 21 mg/dL (9-16); Calcium 9.8 mg/dL (8.4-10.2); Carbon Dioxide 24 mmol/L (22-29); Chloride 102 mmol/L (96-108); Estimated Glomerular Filt Rate > 60; Glucose Random 119 mg/dL (60-115); Potassium 3.5 mmol/L (3.3-5.1); Sodium 141 mmol/L (135-145); Total Protein 7.6 g/dL (6.5-8.0)
[2022-06-13 22:04] LABS: Troponin-I High Sensitivity 4.6 ng/L (<3.5-35.0)
--- NOTE | 2022-06-14 00:40 | ED.CHESTPAIN ---
HPI - Chest Pain General Chief Complaint: Chest Pain Stated Complaint: chest pain Time Seen by Provider: 06/14/22 00:39 Source: patient Mode of arrival: ambulatory Limitations: no limitations History of Present Illness HPI narrative: Patient with history of polysubstance abuse opiates and cocaine since to be homeless comes here for chest when propofol mid chest all day today denies any cocaine use recently no relation to palpation or movement very vague in complaints of shortness of breath not in distress Related Data Previous Rx's Medication Instructions Recorded famotidine 20 mg tablet (Pepcid) 20 mg PO BID gerd #10 tabs 02/16/22 ondansetron 4 mg disintegrating 4 mg PO Q6-8H PRN nausea and 02/16/22 tablet vomiting #10 tabs ondansetron 4 mg disintegrating 4 mg PO Q8H 4 days #12 tabs 02/28/22 tablet pantoprazole 40 mg tablet,delayed 40 mg PO DAILY #20 tabs 02/28/22 release (Protonix) Allergies Allergy/AdvReac Type Severity Reaction Status Date / Time Penicillins [PENICILLINS] Allergy Unknown [facility] Verified 04/04/22 12:14 haloperidol [From Haldol] Allergy Unknown Verified 03/11/22 23:47 Review of Systems Review of Systems: Yes all other systems are reviewed and are negative [facility] Past Medical History Medical History Mood disorder Polysubstance abuse Social History Social History Alcohol intake: former Patient Tobacco Use Status: Never used Tobacco Substance Use Type: Crack/Cocaine and Marijuana Advance Directives: No Physical Exam Vital Signs: Vital Signs: Last Vital Signs Temp 98.4 F 06/13/22 21:42 Pulse 88 06/13/22 21:42 Resp 14 06/13/22 21:42 BP 134/76 06/13/22 21:42 Pulse Ox 99 06/13/22 21:42 O2 Del Method 06/13/22 21:42 BMI result Body Mass Index 25.0 Appearance: Alert. Oriented X3. No acute distress. Eyes: PERRLA, No Nystagmus ENT: Pharynx normal. Oral Mucosa moist Neck: Normal inspection. Neck supple. CVS: Normal heart rate and rhythm. Pulses normal. No murmur/rub chest wall tenderness+ Respiratory: No respiratory distress. Equal air entry bilateral, no wheezing/rales/rhonchi Abdomen: Soft and nontender. Bowel sounds are present, no mass palpable, no CVA tenderness Skin: Skin warm and dry. Normal skin color. Normal skin turgor. Extremities: No lower extremity edema. No calf tenderness Neuro: Oriented X 3. No motor deficit. MDM - Chest Pain MDM Narrative Medical decision making narrative: . Atypical chest pain workup negative EKG without any ischemic changes discharge patient home heart score 0 Lab Data Attestation: I reviewed the patient's lab results. Result diagrams: 06/13/22 21:30 06/13/22 21:30 Labs: Lab Results 06/13/22 06/13/22 06/13/22 Range/Units 21:30 21:30 21:30 WBC 14.2 H (4.8-10.8) X10*3/uL RBC 4.58 L (4.60-5.80) X10*6/uL Hgb 13.8 L (14.0-18.0) g/dl Hct 40.1 L (42.0-52.0) % MCV 87.6 (80.0-98.0) fL MCH 30.1 (27.0-33.0) pg MCHC 34.4 (31.0-36.0) g/dl RDW 13.0 (11.0-16.0) % Plt Count 313 D (160-400) X10*3/uL MPV 10.1 (9.4-12.4) fL Absolute Nucleated RBC 0.000 (0.0-0.012) X10*3/uL Nucleated RBC % (auto) 0.0 (0.0-0.2) /100WBC Sodium 141 (135-145) mmol/L Potassium 3.5 (3.3-5.1) mmol/L Chloride 102 (96-108) mmol/L Carbon Dioxide 24 (22-29) mmol/L Anion Gap 19 (12-20) BUN 21 H D (9-16) mg/dL Creatinine 1.16 (0.5-1.4) mg/dL Estim Creat Clear Calc 90.0 Estimated GFR > 60 Random Glucose 119 H (60-115) mg/dL Calcium 9.8 D (8.4-10.2) mg/dL Total Bilirubin 0.3 (0.0-1.0) mg/dL AST 31 (5-37) U/L ALT 29 (0-40) U/L Alkaline Phosphatase 111 (39-117) U/L Troponin I High Sens 4.6 (<3.5-35.0) ng/L Total Protein 7.6 (6.5-8.0) g/dL Albumin 4.7 (3.5-5.0) g/dL ECG Data ECG #1: Attestation: I personally reviewed and interpreted this ECG as follows: Interpretation: Was sinus rhythm heart rate 87 beats per minute of interval normal axis no acute ischemic changes Discharge Plan Discharge Clinical Impression: Atypical chest pain Patient Disposition: Home, Self-Care Instructions: Chest Wall Pain (ED) Additional Instructions: Take ibuprofen for chest pain chest pain is musculoskeletal pain Prescriptions: No Action ondansetron 4 mg tablet,disintegrating 4 mg PO Q6-8H PRN (Reason: nausea and vomiting) Qty: 10 0RF famotidine [Pepcid] 20 mg tablet 20 mg PO BID Qty: 10 0RF pantoprazole [Protonix] 40 mg tablet,delayed release (DR/EC) 40 mg PO DAILY Qty: 20 0RF ondansetron 4 mg tablet,disintegrating 4 mg PO Q8H 4 Days Qty: 12 0RF
--- OUTSIDE RECORDS SUMMARY | 2022-06-14 00:43 | XMS_ITS | Continuity of Care Document ---
:1990 Author Organization [facility] Address [address] [place] [address]- Care Team Providers Name Role Phone Not on Staff, PCP Primary Care Physician Unavailable Encounter [facility] [place] Date(s): 01/24/22 - 01/24/22 [facility] [address] [place] [address]- Discharge Disposition: A-D/C Home Attending Physician: Jenny Vazquez MD Admitting Physician: Jenny Vazquez MD Referring Physician: Not on Staff, Referring MD Allergies, Adverse Reactions, Alerts Substance Reaction Severity Status penicillin Active Haldol Active Vital Signs Most recent to oldest 1 2 3 [Reference Range]: Oxygen Saturation [94-100 %] 100 % 99 % 98 % (01/24/22 5:47 PM) (01/24/22 8:35 AM) (01/24/22 6:0 7 AM) Pulse Rate [55-90 bpm] 70 bpm 69 bpm 94 bpm (01/24/22 5:47 PM) (01/24/22 8:35 AM) *H* (01/24/22 6:07 AM ) Blood Pressure [90-138/55-84 mm 109/75 mm Hg 103/69 mm Hg 134/86 mm Hg Hg] (01/24/22 5:47 PM) (01/24/22 8:35 AM) (01/24/22 6:0 7 AM) Respiratory Rate [16-30 br/min] 18 br/min 16 br/min 16 br/min (01/24/22 5:47 PM) (01/24/22 8:35 AM) (01/24/22 6:0 7 AM) Temperature [96.8-100.4 DegF] 97.5 DegF 97.4 DegF 97 .7 DegF (01/24/22 5:47 PM) (01/24/22 8:35 AM) (5/25/22 6:0 7 AM) Mode of Delivery (Oxygen) Room air Room air Room a ir (01/24/22 5:47 PM) (01/24/22 8:35 AM) (01/24/22 6:0 7 AM) Blood pressure sites Arm, right Arm, right Arm, right (01/24/22 5:47 PM) (01/24/22 8:35 AM) (01/24/22 6:0 7 AM) Temperature Route Oral Oral Oral (01/24/22 5:47 PM) (01/24/22 8:35 AM) (01/24/22 6:0 7 AM) Social History Social History Type Response Smoking Status 10 or more cigarettes (1/2 p ack or more)/day in last 30 days entered on: 01/16/22 Sex
--- OUTSIDE RECORDS SUMMARY | 2022-06-14 00:43 | XMS_ITS | Continuity of Care Document ---
:1990 Author Organization [facility] Address [address] [place] [id number]- Care Team Providers Name Role Phone Not on Staff, PCP Primary Care Physician Unavailable Encounter [facility] Date(s): 09/05/19 - 09/06/[address] [address]- [facility] Encounter Diagnosis Ingestion of toxic substance (Final) - 09/05/19 Discharge Disposition: A-D/C Home Attending Physician: Irvin Chavarria MD Admitting Physician: Irvin Chavarria MD Referring Physician: Not on Staff, Referring MD Allergies, Adverse Reactions, Alerts Substance Reaction Severity Status penicillin Active Vital Signs Most recent to oldest [Reference 1 2 3 Range]: Oxygen Saturation [94-100 %] 99 % 98 % 98 % (09/06/19 1:56 AM) (09/05/19 10:52 PM) (09/05/19 8:31 PM) Pulse Rate [55-90 bpm] 84 bpm 93 bpm 97 bpm (09/06/19 1:56 AM) *H* *H* (09/05/19 10:52 PM) (09/05/19 8:31 P M) Blood Pressure [90-138/55-84 mm 111/61 mm Hg 135/80 mm Hg Hg] (09/06/19 1:56 AM) (09/05/19 8:31 PM) Respiratory Rate [16-30 br/min] 16 br/min 17 br/min 22 br/min (09/06/19 1:56 AM) (09/05/19 10:52 PM) (09/05/19 8:31 PM) Temperature [96.8-100.4 DegF] 98.2 DegF (09/05/19 8:31 PM) Mode of Delivery (Oxygen) Room air Room air Room a ir (1/5/20 1:56 AM) (09/05/19 10:52 PM) (09/05/19 8:31 PM) Blood pressure sites Arm, left Arm, right (09/06/19 1:56 AM) (09/05/19 8:31 PM) Temperature Route Oral (09/05/19 8:31 PM) Social History Social History Type Response Smoking Status Current every day smoker; Ty pe: Cigarettes entered on: 05/10/18 Sex
--- OUTSIDE RECORDS SUMMARY | 2022-06-14 00:43 | XMS_ITS | Continuity of Care Document ---
:1990 Author Organization [facility] Address [address] [place] [address]- Care Team Providers Name Role Phone Not on Staff, PCP Primary Care Physician Unavailable Encounter [facility] [place] Date(s): 01/25/22 - 01/26/[address] [address]- Encounter Diagnosis Suicidal ideation (Final) - 01/26/22 Acute substance intoxication (Final) - 01/26/22 Discharge Disposition: A-D/C Home Attending Physician: Abner Swift MD Admitting Physician: Abner Swift MD Referring Physician: Not on Staff, Referring MD Allergies, Adverse Reactions, Alerts Substance Reaction Severity Status penicillin Active Haldol Active Vital Signs Most recent to oldest 1 2 3 [Reference Range]: Oxygen Saturation [94-100 %] 98 % 98 % 96 % (01/26/22 5:51 PM) (01/26/22 6:30 AM) (01/25/22 9:5 0 PM) Pulse Rate [55-90 bpm] 77 bpm 87 bpm 94 bpm (01/26/22 5:51 PM) (01/26/22 6:30 AM) *H* (01/25/22 9:50 PM ) Blood Pressure [90-138/55-84 mm 110/60 mm Hg 108/68 mm Hg 113/81 mm Hg Hg] (01/26/22 5:51 PM) (01/26/22 6:30 AM) (01/25/22 9:5 0 PM) Respiratory Rate [16-30 br/min] 18 br/min 18 br/min 16 br/min (01/26/22 5:51 PM) (01/26/22 6:30 AM) (01/25/22 9:5 0 PM) Temperature [96.8-100.4 DegF] 97.4 DegF 98.6 DegF (01/26/22 6:30 AM) (01/25/22 9:50 PM) Mode of Delivery (Oxygen) Room air Room air Room a ir (01/26/22 5:51 PM) (01/26/22 6:30 AM) (01/25/22 9:5 0 PM) Blood pressure sites Arm, right Arm, right (01/26/22 6:30 AM) (01/25/22 9:50 PM) Temperature Route Oral Oral (01/26/22 6:30 AM) (01/25/22 9:50 PM) Social History Social History Type Response Smoking Status 10 or more cigarettes (1/2 p ack or more)/day in last 30 days entered on: 01/16/22 Sex
--- OUTSIDE RECORDS SUMMARY | 2022-06-14 00:43 | XMS_ITS | Continuity of Care Document ---
:1990 Author Organization [facility] Address [address] [place] [address]- Care Team Providers Name Role Phone Not on Staff, PCP Primary Care Physician Unavailable Encounter [facility] Date(s): 02/15/22 - 02/15/22 [facility] [address] [place] [id number]- Encounter Diagnosis Polysubstance abuse (Final) - 02/15/22 Discharge Disposition: A-D/C Home Attending Physician: Jose Miguel Gaitan MD Admitting Physician: Jose Miguel Gaitan MD Referring Physician: Not on Staff, Referring MD Allergies, Adverse Reactions, Alerts Substance Reaction Severity Status penicillin Active Haldol Active Vital Signs Most recent to oldest 1 2 3 [Reference Range]: Oxygen Saturation [94-100 %] 99 % 99 % 99 % (02/15/22 8:53 PM) (02/15/22 6:17 PM) (02/15/22 3:5 3 PM) Pulse Rate [55-90 bpm] 90 bpm 99 bpm 99 bpm (02/15/22 8:53 PM) *H* *H* (02/15/22 6:17 PM) (02/15/22 3:53 PM) Blood Pressure [90-138/55-84 mm 122/63 mm Hg 116/69 mm Hg 128/59 mm Hg Hg] (02/15/22 8:53 PM) (02/15/22 6:17 PM) (02/15/22 3:5 3 PM) Respiratory Rate [16-30 br/min] 16 br/min 15 br/min 14 br/min (02/15/22 8:53 PM) *L* *L* (02/15/22 6:17 PM) (02/15/22 3:53 PM) Temperature [96.8-100.4 DegF] 99.1 DegF 99.1 DegF 99 .4 DegF (02/15/22 8:53 PM) (02/15/22 6:17 PM) (02/15/22 3:5 3 PM) Mode of Delivery (Oxygen) Room air Room air Room a ir (02/15/22 8:53 PM) (02/15/22 6:17 PM) (02/15/22 3:5 3 PM) Blood pressure sites Arm, right Arm, right Arm, left (02/15/22 8:53 PM) (02/15/22 6:17 PM) (02/15/22 3:5 3 PM) Temperature Route Oral Oral Oral (02/15/22 8:53 PM) (02/15/22 6:17 PM) (02/15/22 3:5 3 PM) Social History Social History Type Response Smoking Status 10 or more cigarettes (1/2 p ack or more)/day in last 30 days entered on: 01/16/22 Sex
--- OUTSIDE RECORDS SUMMARY | 2022-06-14 00:43 | XMS_ITS | Continuity of Care Document ---
:1990 Author Organization [facility] Address [address] [place] [address]- Care Team Providers Name Role Phone Not on Staff, PCP Primary Care Physician Unavailable Encounter [facility] [place] Date(s): 03/20/22 - 03/21/[address] [address]- Discharge Disposition: A-D/C Walkout Attending Physician: Not on Staff, Attending MD Admitting Physician: Not on Staff, Admitting MD Referring Physician: Not on Staff, Referring MD Allergies, Adverse Reactions, Alerts Substance Reaction Severity Status penicillin Active Haldol Active Vital Signs Most recent to oldest [Reference Range]: 1 2 Oxygen Saturation [94-100 %] 97 % 96 % (03/20/22 10:23 PM) (03/20/22 8:07 PM) Pulse Rate [55-90 bpm] 66 bpm 88 bpm (03/20/22 10:23 PM) (03/20/22 8:07 PM) Blood Pressure [90-138/55-84 mm Hg] 108/63 mm Hg 106/ 57 mm Hg (03/20/22 10:23 PM) (03/20/22 8:07 PM) Respiratory Rate [16-30 br/min] 16 br/min (03/20/22 8:07 PM) Temperature [96.8-100.4 DegF] 98.4 DegF 98.1 DegF (03/20/22 10:23 PM) (03/20/22 8:07 PM) Mode of Delivery (Oxygen) Room air Room air (03/20/22 10:23 PM) (03/20/22 8:07 PM) Blood pressure sites Arm, right Arm, right (03/20/22 10:23 PM) (03/20/22 8:07 PM) Temperature Route Temporal Oral (03/20/22 10:23 PM) (03/20/22 8:07 PM) Social History Social History Type Response Smoking Status 10 or more cigarettes (1/2 p ack or more)/day in last 30 days entered on: 01/16/22 Sex
--- OUTSIDE RECORDS SUMMARY | 2022-06-14 00:43 | XMS_ITS | Continuity of Care Document ---
:1990 Author Organization [facility] Address [address] [place] [address]- Care Team Providers Name Role Phone Not on Staff, PCP Primary Care Physician Unavailable Encounter [facility] Date(s): 02/13/22 - 02/13/22 [facility] [address] [place] [address]- Discharge Disposition: A-D/C AMA Attending Physician: Boston Pereira DO Admitting Physician: Boston Pereira DO Referring Physician: Not on Staff, Referring MD Allergies, Adverse Reactions, Alerts Substance Reaction Severity Status penicillin Active Haldol Active Medications No Known Medications Vital Signs Most recent to oldest [Reference Range]: 1 Oxygen Saturation [94-100 %] 98 % (02/13/22 5:12 AM) Pulse Rate [55-90 bpm] 84 bpm (02/13/22 5:12 AM) Blood Pressure [90-138/55-84 mm Hg] 131/73 mm Hg (02/13/22 5:12 AM) Respiratory Rate [16-30 br/min] 16 br/min (02/13/22 5:12 AM) Temperature [96.8-100.4 DegF] 97 DegF (02/13/22 5:12 AM) Mode of Delivery (Oxygen) Room air (02/13/22 5:12 AM) Temperature Route Oral (02/13/22 5:12 AM) Social History Social History Type Response Smoking Status 10 or more cigarettes (1/2 p ack or more)/day in last 30 days entered on: 01/16/22 Sex
--- OUTSIDE RECORDS SUMMARY | 2022-06-14 00:43 | XMS_ITS | Continuity of Care Document ---
:1990 Author Organization [facility] Address [address] [place] [address]- Care Team Providers Name Role Phone Not on Staff, PCP Primary Care Physician Unavailable Encounter [facility] Date(s): 03/16/22 - 03/16/[address] [address]- Encounter Diagnosis Chest pain (Final) - 03/16/22 Discharge Disposition: A-D/C AMA Attending Physician: Jenny Vazquez MD Admitting Physician: Jenny Vazquez MD Referring Physician: Not on Staff, Referring MD Allergies, Adverse Reactions, Alerts Substance Reaction Severity Status penicillin Active Haldol Active Vital Signs Most recent to oldest [Reference Range]: 1 2 Weight 71.6 kg 71.6 kg (03/16/22 12:35 PM) (03/16/22 12:33 PM) Oxygen Saturation [94-100 %] 97 % 98 % (03/16/22 12:33 PM) (03/16/22 12:32 PM) Pulse Rate [55-90 bpm] 108 bpm 108 bpm *H* *H* (03/16/22 12:33 PM) (03/16/22 12:32 PM) Blood Pressure [90-138/55-84 mm Hg] 111/71 mm Hg (03/16/22 12:33 PM) Respiratory Rate [16-30 br/min] 18 br/min 18 br/mi n (03/16/22 12:33 PM) (03/16/22 12:32 PM) Temperature [96.8-100.4 DegF] 97.9 DegF (03/16/22 12:33 PM) Mode of Delivery (Oxygen) Room air Room air (03/16/22 12:33 PM) (03/16/22 12:32 PM) Blood pressure sites Arm, right (03/16/22 12:33 PM) Temperature Route Oral (03/16/22 12:33 PM) Dry Weight 71.6 kg 71.6 kg (03/16/22 12:35 PM) (03/16/22 12:33 PM) Weight Obtained Via Standing scale (03/16/22 12:33 PM) Dry Weight Obtained Via Standing scale (03/16/22 12:33 PM)
--- OUTSIDE RECORDS SUMMARY | 2022-06-14 00:43 | XMS_ITS | Continuity of Care Document ---
:1990 Author Organization [facility] Address [address] [place] [address]- Care Team Providers Name Role Phone Not on Staff, PCP Primary Care Physician Unavailable Encounter [facility] [place] Date(s): 01/20/22 - 01/20/22 [facility] [address] [place] [address]- Discharge Disposition: A-D/C Walkout Attending Physician: Not on Staff, Attending MD Admitting Physician: Not on Staff, Admitting MD Referring Physician: Not on Staff, Referring MD Allergies, Adverse Reactions, Alerts Substance Reaction Severity Status penicillin Active Haldol Active Medications No Known Medications Results Radiology Reports Exam Date Time Procedure Performing Provider Status 01/20/22 10:28 AM Chest 2 Views Frontal and Lat Glenn Mejias; Zachary (Verified) Notes:(Chest 2 Views Frontal and Lat) Reason For Exam: Chest Pain;Other:RESULT: Chest 2 Views Frontal and Lat Chest 2 Views Frontal and Lat Hx of Present Illness: Chest pain for one week. COMPARISON: 01/17/2022 FINDINGS: LINES AND TUBES: None. LUNGS AND PLEURA: Clear lungs. Normal pulmonary vascularity. No pleural effusion. No pneumothorax. HEART, MEDIASTINUM AND DEVIN: Heart is normal in size. Normal upper mediastinal and hilar contour. BONES AND SOFT TISSUES: No acute abnormality. IMPRESSION: No acute abnormality. WSN: [id number] Ordering Physician: Dusty Rodas Dictated By: Mike Parikh MD Dictated Date/Time: 01/20/22 10:31 a Reviewed By: Mike Parikh MD Signed By: Mike Parikh MD Signed Date/Time: 01/20/22 10:31 am Transcribed By: NADIA Transcribed Date/Time: 01/20/22 10:30 am Vital Signs Most recent to oldest [Reference Range]: 1 2 Height 168 cm 168 cm (01/20/22 10:02 AM) (01/20/22 9:50 AM) Weight 68.3 kg 68.3 kg (01/20/22 10:02 AM) (01/20/22 9:50 AM) Oxygen Saturation [94-100 %] 99 % 96 % (01/20/22 9:50 AM) (01/20/22 9:43 AM) Pulse Rate [55-90 bpm] 92 bpm 96 bpm *H* *H* (01/20/22 9:50 AM) (01/20/22 9:43 AM) Body Mass Index [18.5-24.99] 24.2 (01/20/22 9:50 AM) Blood Pressure [90-138/55-84 mm Hg] 130/79 mm Hg (01/20/22 9:50 AM) Respiratory Rate [16-30 br/min] 16 br/min 20 br/mi n (01/20/22 9:50 AM) (01/20/22 9:43 AM) Temperature [96.8-100.4 DegF] 98.1 DegF (01/20/22 9:50 AM) Mode of Delivery (Oxygen) Room air Room air (01/20/22 9:50 AM) (01/20/22 9:43 AM) Blood pressure sites Arm, right (01/20/22 9:50 AM) Temperature Route Oral (01/20/22 9:50 AM) Dry Weight 68.3 kg 68.3 kg (01/20/22 10:02 AM) (01/20/22 9:50 AM) Weight Obtained Via Standing scale (01/20/22 9:50 AM) Dry Weight Obtained Via Standing scale (01/20/22 9:50 AM) Social History Social History Type Response Smoking Status 10 or more cigarettes (1/2 p ack or more)/day in last 30 days entered on: 01/16/22 Sex
--- OUTSIDE RECORDS SUMMARY | 2022-06-14 00:43 | XMS_ITS | Continuity of Care Document ---
:1990 Author Organization [facility] Address [address] [place] [address]- Care Team Providers Name Role Phone Not on Staff, PCP Primary Care Physician Unavailable Encounter [facility] [place] Date(s): 03/13/22 - 03/13/[address] [address]- Discharge Disposition: A-D/C Walkout Attending Physician: Not on Staff, Attending MD Admitting Physician: Not on Staff, Admitting MD Referring Physician: Not on Staff, Referring MD Allergies, Adverse Reactions, Alerts Substance Reaction Severity Status penicillin Active Haldol Active Results Radiology Reports Exam Date Time Procedure Performing Provider Status 03/13/22 4:25 PM Chest 2 Views Frontal and Lat Sravanthi Caputo; Zachary (Verified) Notes:(Chest 2 Views Frontal and Lat) Reason For Exam: Chest Pain;Other:RESULT: Chest 2 Views Frontal and Lat Chest 2 Views Frontal and Lat INDICATION: Chest pain COMPARISON: 01/20/2022 FINDINGS: LINES AND TUBES: None. LUNGS AND PLEURA: Clear lungs. Normal pulmonary vascularity. No pleural effusion. No pneumothorax. HEART, MEDIASTINUM AND DEVIN: Heart is normal in size. Normal upper mediastinal and hilar contour. BONES AND SOFT TISSUES: Normal. IMPRESSION: Normal. WSN: [id number] Ordering Physician: Wilmar Smyth MD Dictated By: Anibal Cabrera MD Dictated Date/Time: 03/13/22 4:26 pm Reviewed By: Anibal Cabrera MD Signed By: Anibal Cabrera MD Signed Date/Time: 03/13/22 4:26 pm Transcribed By: NADIA Transcribed Date/Time: 03/13/22 4:26 pm Vital Signs Most recent to oldest [Reference Range]: 1 2 Oxygen Saturation [94-100 %] 100 % 99 % (03/13/22 5:11 PM) (03/13/22 3:18 PM) Pulse Rate [55-90 bpm] 83 bpm 89 bpm (03/13/22 5:11 PM) (03/13/22 3:18 PM) Blood Pressure [90-138/55-84 mm Hg] 114/65 mm Hg 116/ 67 mm Hg (03/13/22 5:11 PM) (03/13/22 3:18 PM) Respiratory Rate [16-30 br/min] 18 br/min (03/13/22 3:18 PM) Temperature [96.8-100.4 DegF] 98.4 DegF 98.2 DegF (03/13/22 5:11 PM) (03/13/22 3:18 PM) Mode of Delivery (Oxygen) Room air Room air (03/13/22 5:11 PM) (03/13/22 3:18 PM) Blood pressure sites Arm, right Arm, left (03/13/22 5:11 PM) (03/13/22 3:18 PM) Temperature Route Oral Oral (03/13/22 5:11 PM) (03/13/22 3:18 PM) Social History Social History Type Response Smoking Status 10 or more cigarettes (1/2 p ack or more)/day in last 30 days entered on: 01/16/22 Sex
--- OUTSIDE RECORDS SUMMARY | 2022-06-14 00:43 | XMS_ITS | Continuity of Care Document ---
:1990 Author Organization [facility] Address [address] [place] [address]- Care Team Providers Name Role Phone Not on Staff, PCP Primary Care Physician Unavailable Encounter [facility] Date(s): 02/13/22 - 02/13/22 [facility] [address] [place] [address]- Discharge Disposition: A-D/C Walkout Attending Physician: Not on Staff, Attending MD Admitting Physician: Not on Staff, Admitting MD Referring Physician: Not on Staff, Referring MD Allergies, Adverse Reactions, Alerts Substance Reaction Severity Status penicillin Active Haldol Active Vital Signs Most recent to oldest [Reference Range]: 1 Oxygen Saturation [94-100 %] 98 % (02/13/22 6:05 PM) Pulse Rate [55-90 bpm] 80 bpm (02/13/22 6:05 PM) Mode of Delivery (Oxygen) Room air (02/13/22 6:05 PM) Social History Social History Type Response Smoking Status 10 or more cigarettes (1/2 p ack or more)/day in last 30 days entered on: 01/16/22 Sex
--- OUTSIDE RECORDS SUMMARY | 2022-06-14 00:43 | XMS_ITS | Continuity of Care Document ---
:1990 Author Organization [facility] Address [address] [place] [address]- Care Team Providers Name Role Phone Not on Staff, PCP Primary Care Physician Unavailable Encounter [facility] Date(s): 02/02/22 - 02/02/22 [facility] [address] [place] [address]- Discharge Disposition: A-D/C Walkout Attending Physician: Not on Staff, Attending MD Admitting Physician: Not on Staff, Admitting MD Referring Physician: Not on Staff, Referring MD Allergies, Adverse Reactions, Alerts Substance Reaction Severity Status penicillin Active Haldol Active Vital Signs Most recent to oldest [Reference Range]: 1 2 Oxygen Saturation [94-100 %] 96 % 99 % (02/02/22 1:58 PM) (02/02/22 1:47 PM) Pulse Rate [55-90 bpm] 101 bpm 108 bpm *H* *H* (02/02/22 1:58 PM) (02/02/22 1:47 PM) Blood Pressure [90-138/55-84 mm Hg] 113/73 mm Hg (02/02/22 1:58 PM) Respiratory Rate [16-30 br/min] 16 br/min (02/02/22 1:58 PM) Mode of Delivery (Oxygen) Room air Room air (02/02/22 1:58 PM) (02/02/22 1:47 PM) Blood pressure sites Arm, left (02/02/22 1:58 PM) Social History Social History Type Response Smoking Status 10 or more cigarettes (1/2 p ack or more)/day in last 30 days entered on: 01/16/22 Sex
--- OUTSIDE RECORDS SUMMARY | 2022-06-14 00:43 | XMS_ITS | Continuity of Care Document ---
:1990 Author Organization [facility] Address [address] [place] [address]- Care Team Providers Name Role Phone Not on Staff, PCP Primary Care Physician Unavailable [place] [facility] [place] 01/16/22 [facility] [address] [place] [address]- Discharge Disposition: A-D/C Walkout Attending Physician: Wilmar Smyth MD Admitting Physician: Wilmar Smyth MD Referring Physician: Not on Staff, Referring MD Allergies, Adverse Reactions, Alerts Substance Reaction Severity Status penicillin Active Haldol Active Vital Signs Most recent to oldest 1 2 3 [Reference Range]: Height 168 cm (01/16/22 4:20 AM) Weight 75 kg (01/16/22 4:20 AM) Oxygen Saturation [94-100 %] 99 % 98 % 100 % (01/16/22 7:57 AM) (01/16/22 6:08 AM) (01/16/22 4:2 0 AM) Pulse Rate [55-90 bpm] 71 bpm 69 bpm 64 bpm (01/16/22 7:57 AM) (01/16/22 6:08 AM) (01/16/22 4:2 0 AM) Blood Pressure [90-138/55-84 mm 112/76 mm Hg 118/59 mm Hg 112/74 mm Hg Hg] (01/16/22 7:57 AM) (01/16/22 6:08 AM) (01/16/22 4:2 0 AM) Respiratory Rate [16-30 br/min] 16 br/min 16 br/min (01/16/22 7:57 AM) (01/16/22 4:20 AM) Temperature [96.8-100.4 DegF] 97.7 DegF 97.8 DegF 97 .9 DegF (01/16/22 7:57 AM) (01/16/22 6:08 AM) (01/16/22 4:2 0 AM) Mode of Delivery (Oxygen) Room air Room air (01/16/22 7:57 AM) (01/16/22 4:20 AM) Blood pressure sites Arm, left Arm, left Arm, left (01/16/22 7:57 AM) (01/16/22 6:08 AM) (01/16/22 4:2 0 AM) Temperature Route Oral Oral Oral (01/16/22 7:57 AM) (01/16/22 6:08 AM) (01/16/22 4:2 0 AM) Dry Weight 75 kg (01/16/22 4:20 AM) Social History Social History Type Response Smoking Status 10 or more cigarettes (1/2 p ack or more)/day in last 30 days entered on: 01/16/22 Sex
--- OUTSIDE RECORDS SUMMARY | 2022-06-14 00:43 | XMS_ITS | Continuity of Care Document ---
:1990 Author Organization [facility] Address [address] [place] [address]- Care Team Providers Name Role Phone Not on Staff, PCP Primary Care Physician Unavailable Encounter [facility] [place] Date(s): 02/08/22 - 02/09/[address] [address]- Encounter Diagnosis Depression (Final) - 02/08/22 Discharge Disposition: A-D/C Home Attending Physician: Boston Pereira DO Admitting Physician: Boston Pereira DO Referring Physician: Not on Staff, Referring MD Allergies, Adverse Reactions, Alerts Substance Reaction Severity Status penicillin Active Haldol Active Vital Signs Most recent to oldest 1 2 3 [Reference Range]: Oxygen Saturation [94-100 %] 99 % 98 % 99 % (02/09/22 11:08 AM) (02/09/22 6:31 AM) (02/08/22 7:2 0 PM) Pulse Rate [55-90 bpm] 95 bpm 70 bpm 90 bpm *H* (02/09/22 6:31 AM) (02/08/22 7:20 P M) (02/09/22 11:08 AM) Blood Pressure [90-138/55-84 mm 100/65 mm Hg 107/65 mm Hg 116/66 mm Hg Hg] (02/09/22 11:08 AM) (02/09/22 6:31 AM) (02/08/22 7:2 0 PM) Respiratory Rate [16-30 br/min] 20 br/min 16 br/min 16 br/min (02/09/22 11:08 AM) (02/09/22 6:31 AM) (02/08/22 7:2 0 PM) Temperature [96.8-100.4 DegF] 97.3 DegF 98 DegF 97 .5 DegF (02/09/22 11:08 AM) (02/09/22 6:31 AM) (02/08/22 7:2 0 PM) Mode of Delivery (Oxygen) Room air Room air Room a ir (02/09/22 11:08 AM) (02/09/22 6:31 AM) (02/08/22 7:2 0 PM) Blood pressure sites Arm, right Arm, right (02/09/22 11:08 AM) (02/08/22 7:20 PM) Temperature Route Oral Oral Oral (02/09/22 11:08 AM) (02/09/22 6:31 AM) (02/08/22 7:2 0 PM) Social History Social History Type Response Smoking Status 10 or more cigarettes (1/2 p ack or more)/day in last 30 days entered on: 01/16/22 Sex
--- OUTSIDE RECORDS SUMMARY | 2022-06-14 00:43 | XMS_ITS | Continuity of Care Document ---
:1990 Author Organization [facility] Address [address] [place] [address]- Care Team Providers Name Role Phone Not on Staff, PCP Primary Care Physician Unavailable [place] [facility] [place]/20/22 - 01/20/[address] [address]- Discharge Disposition: A-D/C Walkout Attending Physician: Not on Staff, Attending MD Admitting Physician: Not on Staff, Admitting MD Referring Physician: Not on Staff, Referring MD Allergies, Adverse Reactions, Alerts Substance Reaction Severity Status penicillin Active Haldol Active Results Radiology Reports Exam Date Time Procedure Performing Provider Status 01/20/22 6:43 PM Chest 2 Views Frontal and Lat Tonya Pryor; Au th (Verified) Notes:(Chest 2 Views Frontal and Lat) Reason For Exam: AnginaRESULT: Chest 2 Views Frontal and Lat Chest 2 Views Frontal and Lat Hx of Present Illness: Patient reports intermittent left sided chest pain x 1 week. Smoked crack today, pain worse. Denies N V D.; Reason: Angina; Clinical Question(s): CHF COMPARISON: None. FINDINGS: LINES AND TUBES: None. LUNGS AND PLEURA: Clear lungs. Normal pulmonary vascularity. No pleural effusion. No pneumothorax. HEART, MEDIASTINUM AND DEVIN: Heart is normal in size. Normal upper mediastinal and hilar contour. BONES AND SOFT TISSUES: No acute abnormality. Additional findings: Linear density projected over the left neck extending into the left upper hemithorax is indeterminate. IMPRESSION: Linear metallic density projecting over the left lower neck and upper hemithorax could represent a foreign body, potentially vascular, or potentially artifactual related to something adjacent to the patient. Clinical correlation and repeat imaging is recommended. A Wood message has been communicated via the [employer] system on 01/20/2022 6:47 PM, Message ID [id number]. WSN: [id number] Ordering Physician: Joy Mcmullen Dictated By: Chirag Gordillo MD Dictated Date/Time: 01/20/22 6:47 pm Reviewed By: Chirag Gordillo MD Signed By: Chirag Gordillo MD Signed Date/Time: 01/20/22 6:47 pm Transcribed By: NADIA Transcribed Date/Time: 01/20/22 6:43 pm Vital Signs Most recent to oldest [Reference Range]: 1 Oxygen Saturation [94-100 %] 99 % (01/20/22 3:54 PM) Pulse Rate [55-90 bpm] 82 bpm (01/20/22 3:54 PM) Blood Pressure [90-138/55-84 mm Hg] 123/83 mm Hg (01/20/22 3:54 PM) Respiratory Rate [16-30 br/min] 18 br/min (01/20/22 3:54 PM) Temperature [96.8-100.4 DegF] 97.8 DegF (01/20/22 3:54 PM) Mode of Delivery (Oxygen) Room air (01/20/22 3:54 PM) Temperature Route Oral (01/20/22 3:54 PM) Social History Social History Type Response Smoking Status 10 or more cigarettes (1/2 p ack or more)/day in last 30 days entered on: 01/16/22 Sex
--- OUTSIDE RECORDS SUMMARY | 2022-06-14 00:43 | XMS_ITS | Continuity of Care Document ---
:1990 Author Organization [facility] Address [address] [place] [address]- Care Team Providers Name Role Phone Not on Staff, PCP Primary Care Physician Unavailable Encounter [facility] Date(s): 02/22/22 - 02/22/[address] [address]- Discharge Disposition: A-D/C Walkout Attending Physician: Not on Staff, Attending MD Admitting Physician: Not on Staff, Admitting MD Referring Physician: Not on Staff, Referring MD Allergies, Adverse Reactions, Alerts Substance Reaction Severity Status penicillin Active Haldol Active Vital Signs Most recent to oldest [Reference Range]: 1 2 Height 168 cm (02/22/22 4:37 AM) Weight 73.3 kg (02/22/22 4:37 AM) Oxygen Saturation [94-100 %] 98 % 96 % (02/22/22 4:37 AM) (02/22/22 4:30 AM) Pulse Rate [55-90 bpm] 95 bpm 108 bpm *H* *H* (02/22/22 4:37 AM) (02/22/22 4:30 AM) Body Mass Index [18.5-24.99] 25.97 *H* (02/22/22 4:37 AM) Blood Pressure [90-138/55-84 mm Hg] 129/78 mm Hg (02/22/22 4:37 AM) Respiratory Rate [16-30 br/min] 22 br/min 18 br/mi n (02/22/22 4:37 AM) (02/22/22 4:30 AM) Temperature [96.8-100.4 DegF] 98.0 DegF (02/22/22 4:37 AM) Mode of Delivery (Oxygen) Room air Room air (02/22/22 4:37 AM) (02/22/22 4:30 AM) Blood pressure sites Arm, right (02/22/22 4:37 AM) Temperature Route Oral Oral (02/22/22 4:37 AM) (02/22/22 4:30 AM) Dry Weight 73.3 kg (02/22/22 4:37 AM) Weight Obtained Via Standing scale (02/22/22 4:37 AM) Dry Weight Obtained Via Standing scale (02/22/22 4:37 AM) Social History Social History Type Response Smoking Status 10 or more cigarettes (1/2 p ack or more)/day in last 30 days entered on: 01/16/22 Sex
--- OUTSIDE RECORDS SUMMARY | 2022-06-14 00:43 | XMS_ITS | Continuity of Care Document ---
:1990 Author Organization [facility] Address [address] [place] [address]- Care Team Providers Name Role Phone Not on Staff, PCP Primary Care Physician Unavailable Encounter [facility] [place] Date(s): 06/08/22 - 06/12/[address] [address]- Encounter Diagnosis Suicidal ideation (Final) - 06/08/22 Discharge Disposition: A-D/C Home Attending Physician: Wilmar Smyth MD Admitting Physician: Wilmar Smyth MD Referring Physician: Not on Staff, Referring MD Allergies, Adverse Reactions, Alerts Substance Reaction Severity Status penicillin Active Haldol Active Medications No Known Medications Vital Signs Most recent to oldest 1 2 3 [Reference Range]: Oxygen Saturation [94-100 %] 99 % 97 % 100 % (06/12/22 9:57 AM) (06/11/22 9:57 PM) (06/11/22 4:31 AM) Pulse Rate [55-90 bpm] 90 bpm 79 bpm 83 bpm (06/12/22 9:57 AM) (06/11/22 9:57 PM) (06/11/22 4:31 AM) Blood Pressure [90-138/55-84 127/78 mm Hg 124/84 mm Hg 109 /71 mm Hg mm Hg] (06/12/22 9:57 AM) (06/11/22 9:57 PM) (06/11/22 4:31 AM) Respiratory Rate [16-30 14 br/min 17 br/min 18 br/mi n br/min] *L* (06/11/22 9:57 PM) (06/11/22 4:3 1 AM) (06/12/22 9:57 AM) Temperature [96.8-100.4 97.9 DegF 98.4 DegF 98 DegF DegF] (06/12/22 9:57 AM) (06/11/22 9:57 PM) (06/11/22 4:31 AM) Mode of Delivery (Oxygen) Room air Room air Room a ir (06/12/22 9:57 AM) (06/11/22 9:57 PM) (06/11/22 4:31 AM) Blood pressure sites Arm, right Arm, right Arm, right (06/12/22 9:57 AM) (06/11/22 9:57 PM) (06/11/22 4:31 AM) Temperature Route Oral Oral Oral (06/12/22 9:57 AM) (06/11/22 9:57 PM) (06/11/22 4:31 AM) Social History Social History Type Response Smoking Status 10 or more cigarettes (1/2 p ack or more)/day in last 30 days entered on: 01/16/22 Sex Patient Care team information PersonnelName: Not on Staff, PCP
--- OUTSIDE RECORDS SUMMARY | 2022-06-14 00:43 | XMS_ITS | Continuity of Care Document ---
:1990 Author Organization [facility] Address [address] [place] [address]- Care Team Providers Name Role Phone Not on Staff, PCP Primary Care Physician Unavailable Encounter [facility] Date(s): 02/22/22 - 02/22/[address] [address]- Discharge Disposition: A-D/C Walkout Attending Physician: Not on Staff, Attending MD Admitting Physician: Not on Staff, Admitting MD Referring Physician: Not on Staff, Referring MD Allergies, Adverse Reactions, Alerts Substance Reaction Severity Status penicillin Active Haldol Active Vital Signs Most recent to oldest [Reference Range]: 1 2 Oxygen Saturation [94-100 %] 98 % 97 % (02/22/22 7:18 PM) (02/22/22 7:10 PM) Pulse Rate [55-90 bpm] 106 bpm 100 bpm *H* *H* (02/22/22 7:18 PM) (02/22/22 7:10 PM) Blood Pressure [90-138/55-84 mm Hg] 103/69 mm Hg (02/22/22 7:18 PM) Respiratory Rate [16-30 br/min] 17 br/min (02/22/22 7:18 PM) Temperature [96.8-100.4 DegF] 98.5 DegF (02/22/22 7:26 PM) Mode of Delivery (Oxygen) Room air Room air (02/22/22 7:18 PM) (02/22/22 7:10 PM) Blood pressure sites Arm, right (02/22/22 7:18 PM) Temperature Route Oral (02/22/22 7:26 PM) Social History Social History Type Response Smoking Status 10 or more cigarettes (1/2 p ack or more)/day in last 30 days entered on: 01/16/22 Sex
--- OUTSIDE RECORDS SUMMARY | 2022-06-14 00:43 | XMS_ITS | Continuity of Care Document ---
:1990 Author Organization [facility] Address [address] [place] [address]- Care Team Providers Name Role Phone Not on Staff, PCP Primary Care Physician Unavailable Encounter [facility] Date(s): 02/08/22 - 02/08/22 [facility] [address] [place] [address]- Discharge Disposition: A-D/C Walkout Attending Physician: Not on Staff, Attending MD Admitting Physician: Not on Staff, Admitting MD Referring Physician: Not on Staff, Referring MD Allergies, Adverse Reactions, Alerts Substance Reaction Severity Status penicillin Active Haldol Active Vital Signs Most recent to oldest [Reference Range]: 1 Oxygen Saturation [94-100 %] 100 % (02/08/22 1:52 PM) Pulse Rate [55-90 bpm] 118 bpm *H* (02/08/22 1:52 PM) Mode of Delivery (Oxygen) Room air (02/08/22 1:52 PM) Social History Social History Type Response Smoking Status 10 or more cigarettes (1/2 p ack or more)/day in last 30 days entered on: 01/16/22 Sex
--- OUTSIDE RECORDS SUMMARY | 2022-06-14 00:43 | XMS_ITS | Continuity of Care Document ---
:1990 Author Organization [facility] Address [address] [place] [address]- Care Team Providers Name Role Phone Not on Staff, PCP Primary Care Physician Unavailable [id number] Date(s): 03/22/22 - 03/22/22 [facility] [address] [place] [address]- Discharge Disposition: A-D/C Home Attending Physician: Jenny Vazquez MD Admitting Physician: Jenny Vazquez MD Referring Physician: Not on Staff, Referring MD Allergies, Adverse Reactions, Alerts Substance Reaction Severity Status penicillin Active Haldol Active Medications No Known Medications Vital Signs Most recent to oldest [Reference Range]: 1 2 Height 168 cm 168 cm (03/22/22 3:06 AM) (03/22/22 3:02 AM) Weight 68 kg 68 kg (03/22/22 3:06 AM) (03/22/22 3:02 AM) Oxygen Saturation [94-100 %] 94 % 94 % (03/22/22 6:03 AM) (03/22/22 3:02 AM) Pulse Rate [55-90 bpm] 87 bpm 85 bpm (03/22/22 6:03 AM) (03/22/22 3:02 AM) Body Mass Index [18.5-24.99] 24.09 (03/22/22 3:02 AM) Blood Pressure [90-138/55-84 mm Hg] 102/53 mm Hg 90/6 0 mm Hg (03/22/22 6:03 AM) (03/22/22 3:02 AM) Respiratory Rate [16-30 br/min] 16 br/min 16 br/mi n (03/22/22 6:03 AM) (03/22/22 3:02 AM) Temperature [96.8-100.4 DegF] 97.8 DegF 97.9 DegF (03/22/22 6:03 AM) (03/22/22 3:02 AM) Mode of Delivery (Oxygen) Room air Room air (03/22/22 6:03 AM) (03/22/22 3:02 AM) Temperature Route Oral Oral (03/22/22 6:03 AM) (03/22/22 3:02 AM) Dry Weight 68 kg 68 kg (03/22/22 3:06 AM) (03/22/22 3:02 AM) Weight Obtained Via Patient/family stated (03/22/22 3:02 AM) Dry Weight Obtained Via Patient/family stated (03/22/22 3:02 AM) Social History Social History Type Response Smoking Status 10 or more cigarettes (1/2 p ack or more)/day in last 30 days entered on: 01/16/22 Sex
--- OUTSIDE RECORDS SUMMARY | 2022-06-14 00:43 | XMS_ITS | Continuity of Care Document ---
:1990 Author Organization [facility] Address [address] [place] [address]- Care Team Providers Name Role Phone Not on Staff, PCP Primary Care Physician Unavailable Encounter [facility] [place] Date(s): 01/17/22 - 01/17/[address] [address]- Discharge Disposition: A-D/C Walkout Attending Physician: Not on Staff, Attending MD Admitting Physician: Not on Staff, Admitting MD Referring Physician: Not on Staff, Referring MD Allergies, Adverse Reactions, Alerts Substance Reaction Severity Status penicillin Active Haldol Active Results Radiology Reports Exam Date Time Procedure Performing Provider Status 01/17/22 6:04 AM Chest 2 Views Frontal and Lat Yoon Dudley [facility] (Verified) Notes:(Chest 2 Views Frontal and Lat) Reason For Exam: Chest Pain;Other:RESULT: Chest 2 Views Frontal and Lat Chest 2 Views Frontal and Lat Hx of Present Illness: Pt reporting CP x 2 days, non radiating, non reproducible, denies injury, or ETOH drug use; Reason: Other:; Chest Pain; Clinical Question(s): Other: COMPARISON: None. FINDINGS: LINES AND TUBES: None. LUNGS AND PLEURA: Clear lungs. Normal pulmonary vascularity. No pleural effusion. No pneumothorax. HEART, MEDIASTINUM AND DEVIN: Heart is normal in size. Normal upper mediastinal and hilar contour. BONES AND SOFT TISSUES: No acute abnormality. IMPRESSION: No acute abnormality. WSN: [id number] Ordering Physician: Bharathi Brown Dictated By: Andreia Lozada MD Dictated Date/Time: 01/17/22 7:32 am Reviewed By: Andreia Lozada MD Signed By: Andreia Lozada MD Signed Date/Time: 01/17/22 7:32 am Transcribed By: NADIA Transcribed Date/Time: 01/17/22 7:31 am Vital Signs Most recent to oldest 1 2 3 [Reference Range]: Height 168 cm (01/17/22 5:08 AM) Oxygen Saturation [94-100 %] 98 % 99 % 98 % (01/17/22 5:08 AM) (01/17/22 4:54 AM) (01/17/22 4:4 8 AM) Pulse Rate [55-90 bpm] 72 bpm 68 bpm 86 bpm (01/17/22 5:08 AM) (01/17/22 4:54 AM) (01/17/22 4:4 8 AM) Blood Pressure [90-138/55-84 mm 116/79 mm Hg 124/83 mm Hg Hg] (01/17/22 5:08 AM) (01/17/22 4:54 AM) Respiratory Rate [16-30 br/min] 16 br/min 18 br/min 16 br/min (01/17/22 5:08 AM) (01/17/22 4:54 AM) (01/17/22 4:4 8 AM) Temperature [96.8-100.4 DegF] 97.8 DegF 98.2 DegF (01/17/22 5:08 AM) (01/17/22 4:54 AM) Mode of Delivery (Oxygen) Room air Room air Room a ir (01/17/22 5:08 AM) (01/17/22 4:54 AM) (01/17/22 4:4 8 AM) Blood pressure sites Arm, right Arm, right (01/17/22 5:08 AM) (01/17/22 4:54 AM) Temperature Route Oral Oral (01/17/22 5:08 AM) (01/17/22 4:54 AM) Social History Social History Type Response Smoking Status 10 or more cigarettes (1/2 p ack or more)/day in last 30 days entered on: 01/16/22 Sex
--- OUTSIDE RECORDS SUMMARY | 2022-06-14 00:43 | XMS_ITS | Continuity of Care Document ---
:1990 Author Organization [facility] Address [address] [place] [address]- Care Team Providers Name Role Phone Not on Staff, PCP Primary Care Physician Unavailable [facility] [place] Date(s): 01/31/22 - 01/31/22 [facility] [address] [place] [address]- Discharge Disposition: A-D/C Home Attending Physician: Luis F Munoz MD Admitting Physician: Luis F Munoz MD Referring Physician: Not on Staff, Referring MD Allergies, Adverse Reactions, Alerts Substance Reaction Severity Status penicillin Active Haldol Active Vital Signs Most recent to oldest [Reference Range]: 1 2 Height 168 cm 168 cm (01/31/22 10:20 AM) (01/31/22 10:11 AM) Weight 67.3 kg 67.3 kg (01/31/22 10:20 AM) (01/31/22 10:11 AM) Oxygen Saturation [94-100 %] 100 % 100 % (01/31/22 10:11 AM) (01/31/22 10:09 AM) Pulse Rate [55-90 bpm] 98 bpm 115 bpm *H* *H* (01/31/22 10:11 AM) (01/31/22 10:09 AM) Body Mass Index [18.5-24.99] 23.84 (01/31/22 10:11 AM) Blood Pressure [90-138/55-84 mm Hg] 109/78 mm Hg (01/31/22 10:11 AM) Respiratory Rate [16-30 br/min] 16 br/min (01/31/22 10:11 AM) Mode of Delivery (Oxygen) Room air Room air (01/31/22 10:11 AM) (01/31/22 10:09 AM) Blood pressure sites Arm, right (01/31/22 10:11 AM) Temperature Route Oral 1 (01/31/22 10:11 AM) Dry Weight 67.3 kg 67.3 kg (01/31/22 10:20 AM) (01/31/22 10:11 AM) Weight Obtained Via Standing scale (01/31/22 10:11 AM) Dry Weight Obtained Via Standing scale (01/31/22 10:11 AM) 1Result Comment: Pt refused temp oral and Ax. Social History Social History Type Response Smoking Status 10 or more cigarettes (1/2 p ack or more)/day in last 30 days entered on: 01/16/22 Sex
--- OUTSIDE RECORDS SUMMARY | 2022-06-14 00:43 | XMS_ITS | Continuity of Care Document ---
:1990 Author Organization [facility] Address [address] [place] [address]- Care Team Providers Name Role Phone Not on Staff, PCP Primary Care Physician Unavailable Encounter [facility] Date(s): 02/08/22 - 02/08/[address] [address]- Discharge Disposition: A-D/C Walkout Attending Physician: Not on Staff, Attending MD Admitting Physician: Not on Staff, Admitting MD Referring Physician: Not on Staff, Referring MD Allergies, Adverse Reactions, Alerts Substance Reaction Severity Status penicillin Active Haldol Active Vital Signs Most recent to oldest [Reference Range]: 1 2 Oxygen Saturation [94-100 %] 100 % 99 % (02/08/22 4:22 AM) (02/08/22 1:18 AM) Pulse Rate [55-90 bpm] 89 bpm 114 bpm (02/08/22 4:22 AM) *H* (02/08/22 1:18 AM) Blood Pressure [90-138/55-84 mm Hg] 131/78 mm Hg 119/ 75 mm Hg (02/08/22 4:22 AM) (02/08/22 1:18 AM) Respiratory Rate [16-30 br/min] 16 br/min 20 br/mi n (02/08/22 4:22 AM) (02/08/22 1:18 AM) Temperature [96.8-100.4 DegF] 98.3 DegF (02/08/22 1:18 AM) Mode of Delivery (Oxygen) Room air Room air (02/08/22 4:22 AM) (02/08/22 1:18 AM) Blood pressure sites Arm, right Arm, right (02/08/22 4:22 AM) (02/08/22 1:18 AM) Temperature Route Oral (02/08/22 1:18 AM) Social History Social History Type Response Smoking Status 10 or more cigarettes (1/2 p ack or more)/day in last 30 days entered on: 01/16/22 Sex
== END 2022-06-14 00:54 | disposition home or self-care (01) ==
PROVIDERS: Emergency Provider Internal Medicine
DX: R07.89 Other chest pain (principal); R06.02 Shortness of breath; F19.10 Other psychoactive substance abuse, uncomplicated
CPT/HCPCS: 36415; 71045; 80053; 84484; 85027; 93005; 99283

== ENCOUNTER 2022-06-14 20:57 | Emergency (ER) | payer OTHER, SELFPAY ==
[2022-06-14 20:58] VITALS: BP 112/50; PULSE 83; RESP 18; TEMP 37.2; O2SAT 96; BMI 24.2
[2022-06-14 21:18] LABS: MANUAL DIFF FLAG NO
[2022-06-14 21:20] LABS: Basophils Absolute Auto 0.1 X10*3/uL (0.0-0.2); Basophils Percent Auto 0.4 % (0-2); Eosinophils Absolute Auto 0.2 X10*3/uL (0.0-0.4); Eosinophils Percent Auto 1.6 % (0-4); Hemoglobin 13.1 g/dl (14.0-18.0); Imm Gran Abs Auto 0.06 X10*3/uL (0.00-0.03); Imm Gran Pct Auto 0.5 % (0.0-0.4); Lymphocytes Absolute Auto 3.7 X10*3/uL (1.2-4.9); Lymphocytes Percent Auto 29.9 % (20-40); Mean Corpuscular HGB Conc 33.6 g/dl (31.0-36.0); Mean Corpuscular Volume 86.5 fL (80.0-98.0); Mean Platelet Volume 9.8 fL (9.4-12.4); Monocytes Absolute Auto 1.4 X10*3/uL (0.1-1.2); Monocytes Percent Auto 11.6 % (2-11); Neutrophils Absolute Auto 6.9 x10*3/uL (2.0-8.3); Platelet Count 279 X10*3/uL (160-400); Red Blood Count 4.51 X10*6/uL (4.60-5.80); Red Cell Distribution Width 12.9 % (11.0-16.0); White Blood Count 12.2 X10*3/uL (4.8-10.8)
[2022-06-14 21:30] LABS: Appearance Urine Clear; Color Urine Dark Yellow; Glucose Urine UA Negative (Negative); Leukocyte Esterase Urine Negative (Negative); Nitrite Urine Negative (Negative); PH 5.5 (5.0-9.0); Specific Gravity - Urine >= 1.030 (1.005-1.025); Urine Blood Negative (Negative); Urine Ketones Negative (Negative); Urine Protein Trace mg/dL (Neg-Trace)
[2022-06-14 21:34] LABS: COVID-19 Test Negative (Negative)
[2022-06-14 21:37] LABS: Alanine Aminotransferase 29 U/L (0-40); Albumin Level 4.3 g/dL (3.5-5.0); Alkaline Phosphatase 103 U/L (39-117); Anion Gap 15 (12-20); Aspartate Amino Transferase 33 U/L (5-37); Bilirubin Total 0.5 mg/dL (0.0-1.0); Blood Urea Nitrogen 16 mg/dL (9-16); Calcium 9.2 mg/dL (8.4-10.2); Carbon Dioxide 26 mmol/L (22-29); Chloride 104 mmol/L (96-108); Creatinine Clr Calc Pharmacy 100.4; Estimated Glomerular Filt Rate > 60; Ethanol < 10 mg/dL; Glucose Random 138 mg/dL (60-115); Potassium 3.6 mmol/L (3.3-5.1); Sodium 141 mmol/L (135-145)
[2022-06-14 21:44] LABS: Amphetamine Screen Urine Not Detected (Not Detect); Barbiturates, Urine Not Detected (Not Detect); Benzodiazepines Screen Urine Not Detected (Not Detect); Cannabinoid Screen Urine POSITIVE (Not Detect); Cocaine Screen Urine POSITIVE (Not Detect); Fentanyl, urine POSITIVE (Not Detect); Opiate Screen Urine Not Detected (Not Detect); Phencyclidine Screen Urine POSITIVE (Not Detect)
--- NOTE | 2022-06-14 21:50 | ED.PSYCH ---
HPI - Psych General Chief Complaint: Psychiatric Symptoms Stated Complaint: SI Time Seen by Provider: 06/14/22 21:33 Source: patient and old records reviewed Mode of arrival: ambulatory Limitations: no limitations History of Present Illness MD complaint: suicidal ideation and feels depressed Onset (ago): week(s) (3) Duration: constant History of same: Yes Relieving factors: none Exacerbating factors: drug use Context: recent drug abuse Associated psychiatric symptoms: depression and suicidal ideation Associated symptoms: denies other symptoms Treatments prior to arrival: none If self harm: admits thoughts of self harm Related Data Previous Rx's Medication Instructions Recorded famotidine 20 mg tablet (Pepcid) 20 mg PO BID gerd #10 tabs 02/16/22 ondansetron 4 mg disintegrating 4 mg PO Q6-8H PRN nausea and 02/16/22 tablet vomiting #10 tabs ondansetron 4 mg disintegrating 4 mg PO Q8H 4 days #12 tabs 02/28/22 tablet pantoprazole 40 mg tablet,delayed 40 mg PO DAILY #20 tabs 02/28/22 release (Protonix) Allergies Allergy/AdvReac Type Severity Reaction Status Date / Time Penicillins [PENICILLINS] Allergy Unknown [facility] Verified 04/04/22 12:14 haloperidol [From Haldol] Allergy Unknown Verified 03/11/22 23:47 Review of Systems Review of Systems: Constitutional : No Fever, No Chills ENT/Mouth : No Ear Pain, No Nasal Congestion, No sore throat Eyes: No Eye Pain, No Swelling, No Redness Cardiovascular : No Chest Pain, No SOB Respiratory : No Cough, No Sputum, No Dyspnea Gastrointestinal : No Nausea, No Vomiting, No Diarrhea, No Hematochezia, No Melena Genitourinary : No Dysuria, No Urinary Frequency, No Hematuria Musculoskeletal : No Myalgias Skin : No Skin Lesions, No rash Neuro : No Weakness, No Numbness, No Paresthesias, No Dizziness, No Headache Psych : positive Anxiety, positive Depression, positive SI no HI Heme/Lymph: No Lymphadenopathy Endocrine : No Polyuria, No Polydipsia All other systems reviewed and are negative [facility] Past Medical History Attestation statement: The following information was validated with the patient. Medical History Mood disorder Polysubstance abuse Social History Social History Alcohol intake: former Patient Tobacco Use Status: Never used Tobacco Substance Use Type: Crack/Cocaine and Marijuana Advance Directives: No Advance Directives Information Provided: No Physical Exam Vital Signs: Vital Signs: Last Vital Signs Temp 98.9 F 06/14/22 20:58 Pulse 83 06/14/22 20:58 Resp 18 06/14/22 20:58 BP 112/50 L 06/14/22 20:58 Pulse Ox 96 06/14/22 20:58 O2 Del Method 06/14/22 20:58 BMI result Body Mass Index 24.2 Appearance: Alert. Oriented X3. No acute distress. Eyes: Pupils equal, round and reactive to light. ENT: Pharynx normal. Neck: Normal inspection. Neck supple. CVS: Normal heart rate and rhythm. Pulses normal. Respiratory: No respiratory distress. Breath sounds normal. Abdomen: Soft and non-tender. Skin: Skin warm and dry. Normal skin color. Normal skin turgor. Extremities: No lower extremity edema. No calf ttp Neuro: Oriented X 3. No motor deficit. No sensory deficit. Cn 2-12 intact Course Course Course Narrative: Physician observation started at 953pm Patient placed in physician observation because the patient needed more time for BHN to assess the need for psych admission. At the time observation was started the patient's vitals were stable, patient is alert and oriented but slightly anxious, Neuro: nonfocal, CV RRR, Lungs clear MDM - Psych MDM Narrative Medical decision making narrative: 31 yo male chronically presents to our ED with SI after using drugs usually in setting of wanting a place to sleep or a sandwhich. At this time labs, stable, BHN consult ordered - if patient recants when sober would discharge him as this is a chronic presentation and no recent attempts known. Lab Data Result diagrams: 06/14/22 21:12 06/14/22 21:12 Labs: Lab Results 06/14/22 06/14/22 06/14/22 Range/Units 21:12 21:12 21:12 WBC 12.2 H (4.8-10.8) X10*3/uL RBC 4.51 L (4.60-5.80) X10*6/uL Hgb 13.1 L (14.0-18.0) g/dl Hct 39.0 L (42.0-52.0) % MCV 86.5 (80.0-98.0) fL MCH 29.0 (27.0-33.0) pg MCHC 33.6 (31.0-36.0) g/dl RDW 12.9 (11.0-16.0) % Plt Count 279 (160-400) X10*3/uL MPV 9.8 (9.4-12.4) fL Immature Gran % (Auto) 0.5 H (0.0-0.4) % Neut % (Auto) 56.0 (45-73) % Lymph % (Auto) 29.9 (20-40) % [place] % (Auto) 11.6 H (2-11) % Eos % (Auto) 1.6 (0-4) % Baso % (Auto) 0.4 (0-2) % Lymph # (Auto) 3.7 (1.2-4.9) X10*3/uL [place] # (Auto) 1.4 H (0.1-1.2) X10*3/uL Eos # (Auto) 0.2 (0.0-0.4) X10*3/uL Baso # (Auto) 0.1 (0.0-0.2) X10*3/uL Abs Immat Gran (auto) 0.06 H (0.00-0.03) X10*3/uL Absolute Neuts (auto) 6.9 (2.0-8.3) x10*3/uL Absolute Nucleated RBC 0.000 (0.0-0.012) X10*3/uL Nucleated RBC % (auto) 0.0 (0.0-0.2) /100WBC Sodium 141 (135-145) mmol/L Potassium 3.6 (3.3-5.1) mmol/L Chloride 104 (96-108) mmol/L Carbon Dioxide 26 (22-29) mmol/L Anion Gap 15 (12-20) BUN 16 (9-16) mg/dL Creatinine 0.97 (0.5-1.4) mg/dL Estim Creat Clear Calc 100.4 Estimated GFR > 60 Random Glucose 138 H (60-115) mg/dL Calcium 9.2 D (8.4-10.2) mg/dL Total Bilirubin 0.5 (0.0-1.0) mg/dL AST 33 (5-37) U/L ALT 29 (0-40) U/L Alkaline Phosphatase 103 (39-117) U/L Total Protein 7.0 (6.5-8.0) g/dL Albumin 4.3 (3.5-5.0) g/dL Urine Color Urine Appearance Urine pH (5.0-9.0) Ur Specific Lee (1.005-1.025) Urine Protein (Neg-Trace) mg/dL Urine Glucose (UA) (Negative) mg/dL Urine Ketones (Negative) mg/dL Urine Blood (Negative) Urine Nitrite (Negative) Ur Leukocyte Esterase (Negative) Urine Opiates Screen (Not Detect) Urine Fentanyl Screen (Not Detect) Ur Barbiturates Screen (Not Detect) Ur Phencyclidine Scrn (Not Detect) Ur Amphetamines Screen (Not Detect) U Benzodiazepines Scrn (Not Detect) Urine Cocaine Screen (Not Detect) U Marijuana (THC) Screen (Not Detect) Ethyl Alcohol < 10 mg/dL COVID-19 ([facility]) Negative (Negative) COVID-19 Clin Com See Note 06/14/22 06/14/22 Range/Units 21:22 21:22 WBC (4.8-10.8) X10*3/uL RBC (4.60-5.80) X10*6/uL Hgb (14.0-18.0) g/dl Hct (42.0-52.0) % MCV (80.0-98.0) fL MCH (27.0-33.0) pg MCHC (31.0-36.0) g/dl RDW (11.0-16.0) % Plt Count (160-400) X10*3/uL MPV (9.4-12.4) fL Immature Gran % (Auto) (0.0-0.4) % Neut % (Auto) (45-73) % Lymph % (Auto) (20-40) % [place] % (Auto) (2-11) % Eos % (Auto) (0-4) % Baso % (Auto) (0-2) % Lymph # (Auto) (1.2-4.9) X10*3/uL [place] # (Auto) (0.1-1.2) X10*3/uL Eos # (Auto) (0.0-0.4) X10*3/uL Baso # (Auto) (0.0-0.2) X10*3/uL Abs Immat Gran (auto) (0.00-0.03) X10*3/uL Absolute Neuts (auto) (2.0-8.3) x10*3/uL Absolute Nucleated RBC (0.0-0.012) X10*3/uL Nucleated RBC % (auto) (0.0-0.2) /100WBC Sodium (135-145) mmol/L Potassium (3.3-5.1) mmol/L Chloride (96-108) mmol/L Carbon Dioxide (22-29) mmol/L Anion Gap (12-20) BUN (9-16) mg/dL Creatinine (0.5-1.4) mg/dL Estim Creat Clear Calc Estimated GFR Random Glucose (60-115) mg/dL Calcium (8.4-10.2) mg/dL Total Bilirubin (0.0-1.0) mg/dL AST (5-37) U/L ALT (0-40) U/L Alkaline Phosphatase (39-117) U/L Total Protein (6.5-8.0) g/dL Albumin (3.5-5.0) g/dL Urine Color Dark Yellow Urine Appearance Clear Urine pH 5.5 (5.0-9.0) Ur Specific Lee >= 1.030 H (1.005-1.025) Urine Protein Trace (Neg-Trace) mg/dL Urine Glucose (UA) Negative (Negative) mg/dL Urine Ketones Negative (Negative) mg/dL Urine Blood Negative (Negative) Urine Nitrite Negative (Negative) Ur Leukocyte Esterase Negative (Negative) Urine Opiates Screen Not Detected (Not Detect) Urine Fentanyl Screen POSITIVE H (Not Detect) Ur Barbiturates Screen Not Detected (Not Detect) Ur Phencyclidine Scrn POSITIVE H (Not Detect) Ur Amphetamines Screen Not Detected (Not Detect) U Benzodiazepines Scrn Not Detected (Not Detect) Urine Cocaine Screen POSITIVE H (Not Detect) U Marijuana (THC) Screen POSITIVE H (Not Detect) Ethyl Alcohol mg/dL COVID-19 ([facility]VAIN) (Negative) COVID-19 Clin Com Discharge Plan Discharge Clinical Impression: Polysubstance abuse Patient Disposition: Still a Patient Prescriptions: No Action ondansetron 4 mg tablet,disintegrating 4 mg PO Q6-8H PRN (Reason: nausea and vomiting) Qty: 10 0RF famotidine [Pepcid] 20 mg tablet 20 mg PO BID Qty: 10 0RF pantoprazole [Protonix] 40 mg tablet,delayed release (DR/EC) 40 mg PO DAILY Qty: 20 0RF ondansetron 4 mg tablet,disintegrating 4 mg PO Q8H 4 Days Qty: 12 0RF
[2022-06-14 22:13] VITALS: BP 111/69; PULSE 68; RESP 16; TEMP 36.9; O2SAT 99
[2022-06-15 00:07] VITALS: BP 131/73; PULSE 76; RESP 18
--- NOTE | 2022-06-15 06:58 | MHC.CARE ---
Smart sheet submitted
--- NOTE | 2022-06-15 09:00 | MHC.CARE ---
CARE Team met with Pt who presented to [facility] reporting SI with plan to get hit by a train. Today, Pt is calm cooperative and engaged. Pt denies current SI plan intent or means. Pt does not report HI/VH/AH and states I told the ED I felt suicidal due to my baby mom kicking me out last night and needing a place to stay . Pt is requesting to be discharged from the ED. Pt denies needing recovery resources at this time. Pt to provided with information for N crisis. Case reviewed with RASHAD Arteaga
== END 2022-06-15 09:47 | disposition home or self-care (01) ==
PROVIDERS: Emergency Provider Emergency Medicine
DX: F19.10 Other psychoactive substance abuse, uncomplicated (principal); Z20.822 Contact with and (suspected) exposure to COVID-19; F32.A Depression, unspecified; F41.9 Anxiety disorder, unspecified; F39 Unspecified mood [affective] disorder; Z79.899 Other long term (current) drug therapy
CPT/HCPCS: 80053; 80307; 81003; 82077; 85025; 87635; 99284

== ENCOUNTER 2022-06-17 00:19 | Emergency (ER) | payer OTHER, SELFPAY ==
[2022-06-17 00:35] VITALS: BP 126/72; PULSE 79; RESP 19; TEMP 36.6; O2SAT 96; BMI 24.2
--- NOTE | 2022-06-17 00:38 | PC.NURSE ---
per Dr. Bernstein no EKG at this time.
--- NOTE | 2022-06-17 00:41 | ED.CHESTPAIN ---
HPI - Chest Pain General Chief Complaint: Chest Pain Stated Complaint: CP Time Seen by Provider: 06/17/22 00:36 Source: patient and old records reviewed Mode of arrival: ambulatory Limitations: no limitations History of Present Illness HPI narrative: 31 yo male with almost daily presentations of chest pain and substance abuse with negative workup presents tonight with c/o chest pain again. Just had ECG 4 days ago for the same. MD complaint: chest pain Pertinent past history: other (chronic chest pain) Onset (ago): year(s) (2 years (noted it happened again today)) Timing of current episode: daily Prior episodes: Yes Onset: during rest Pain location: substernal Pain radiation: none Severity: mild Quality: other ( pain ) Relieving factors: nothing Exacerbating factors: nothing Context: other (chronic chest pain) Associated symptoms: other (no associated symptoms) Treatment prior to arrival: none Related Data Previous Rx's Medication Instructions Recorded famotidine 20 mg tablet (Pepcid) 20 mg PO BID gerd #10 tabs 02/16/22 ondansetron 4 mg disintegrating 4 mg PO Q6-8H PRN nausea and 02/16/22 tablet vomiting #10 tabs ondansetron 4 mg disintegrating 4 mg PO Q8H 4 days #12 tabs 02/28/22 tablet pantoprazole 40 mg tablet,delayed 40 mg PO DAILY #20 tabs 02/28/22 release (Protonix) Allergies Allergy/AdvReac Type Severity Reaction Status Date / Time Penicillins [PENICILLINS] [facility] 04/04/22 12:14 haloperidol [From Haldol] Allergy Unknown Verified 03/11/22 23:47 Review of Systems Review of Systems: Constitutional : No Weight loss, No Fever, No Chills ENT/Mouth : No sore throat, No Rhinorrhea Eyes: No Eye Pain, No Swelling Cardiovascular : pos Chest Pain, no SOB, no Dyspnea on Exertion, No Orthopnea, No Edema, No Palpitations Respiratory : No Cough, No Sputum Gastrointestinal : no Nausea, No Vomiting, No Diarrhea, No abdominal Pain, No Hematochezia, No Melena Genitourinary : No Dysuria, No Urinary Frequency Musculoskeletal : No joint pain, No Myalgias, No Joint Swelling Skin : No Skin Lesions, No rash Neuro : No Weakness, No Numbness, No Dizziness, No Headache Psych : No Anxiety/Panic, No Depression, no SI Heme/Lymph: No Bruising, No Lymphadenopathy Endocrine : No Polyuria, No Polydipsia All other systems reviewed and are negative [facility] Past Medical History Attestation statement: The following information was validated with the patient. Medical History Mood disorder Polysubstance abuse Social History Social History Alcohol intake: former Patient Tobacco Use Status: Never used Tobacco Substance Use Type: Crack/Cocaine and Marijuana Advance Directives: No Physical Exam Vital Signs: Vital Signs: Last Vital Signs Temp 97.8 F 06/17/22 00:35 Pulse 79 06/17/22 00:35 Resp 19 06/17/22 00:35 BP 126/72 06/17/22 00:35 Pulse Ox 96 06/17/22 00:35 O2 Del Method 06/17/22 00:35 BMI result Body Mass Index 24.2 Appearance: Alert. Oriented X3. No acute distress. laughing, playing on phone, no distress, unkempt Eyes: Pupils equal, round and reactive to light. ENT: Pharynx normal. Neck: Normal inspection. Neck supple. CVS: Normal heart rate and rhythm. Pulses normal. Respiratory: No respiratory distress. Breath sounds normal. Abdomen: Soft and non-tender. Skin: Skin warm and dry. Normal skin color. Normal skin turgor. Extremities: No lower extremity edema. No calf ttp Neuro: Oriented X 3. No motor deficit. No sensory deficit. MDM - Chest Pain MDM Narrative Medical decision making narrative: 31 yo male with frequent visits usually to utilize a safe space to stay and [facility] comes in with chest pain - he then denies he's ever been here for chest pain. He has no risk factors. I am not going to do another cardiac workup he has clear lungs, he is playing on his phone and laughing. He denies crisis. He usually recants after this and claims SI then is cleared by crisis. He is asking for a COVID swab once negative he can be DC Lab Data Labs: Lab Results 06/17/22 Range/Units 00:51 COVID-19 ([facility]VAIN) Negative (Negative) COVID-19 Clin Com See Note Discharge Plan Discharge Clinical Impression: Atypical chest pain Patient Disposition: Home, Self-Care Instructions: Chest Pain (ED) Additional Instructions: return to ED for any worsening symptoms or concerns COVID swab negative Prescriptions: No Action ondansetron 4 mg tablet,disintegrating 4 mg PO Q6-8H PRN (Reason: nausea and vomiting) Qty: 10 0RF famotidine [Pepcid] 20 mg tablet 20 mg PO BID Qty: 10 0RF pantoprazole [Protonix] 40 mg tablet,delayed release (DR/EC) 40 mg PO DAILY Qty: 20 0RF ondansetron 4 mg tablet,disintegrating 4 mg PO Q8H 4 Days Qty: 12 0RF
[2022-06-17 01:23] LABS: COVID-19 Test Negative (Negative)
== END 2022-06-17 01:48 | disposition home or self-care (01) ==
PROVIDERS: Emergency Provider Emergency Medicine
DX: R07.89 Other chest pain (principal); F14.90 Cocaine use, unspecified, uncomplicated; F12.90 Cannabis use, unspecified, uncomplicated; Z20.822 Contact with and (suspected) exposure to COVID-19; Z79.899 Other long term (current) drug therapy
CPT/HCPCS: 87635; 99283

== ENCOUNTER 2022-06-25 23:26 | Emergency (ER) | payer OTHER, SELFPAY ==
--- NOTE | 2022-06-26 | ECG_ITS ---
Test Reason : CHEST PAIN Blood Pressure : / mmHG Vent. Rate : 102 BPM Atrial Rate : 102 BPM P-R Int : 140 ms QRS Dur : 080 ms QT Int : 354 ms P-R-T Axes : 057 077 055 degrees QTc Int : 461 ms Sinus tachycardia Otherwise normal ECG When compared with ECG of 13-JUN-2022 21:51, QRS axis Shifted right Referred By: Generic ED Physician Electronically Signed By:MORA COTTON MD
[2022-06-26 00:04] VITALS: BP 120/78; PULSE 87; RESP 18; TEMP 36.9; O2SAT 97; BMI 25.3
--- NOTE | 2022-06-26 00:50 | PC.NURSE ---
Pt refused blood work in triage
--- NOTE | 2022-06-26 02:29 | ED_ITS ---
HPI - Chest Pain General Chief Complaint: Chest Pain Stated Complaint: chest pain Time Seen by Provider: 06/26/22 02:29 Source: patient Mode of arrival: ambulatory Limitations: no limitations History of Present Illness HPI narrative: Patient history of substance abuse cocaine and opiates homeless been to ER multiple times for chest pain was seen at [facility] on 06/22 had repeated blood drawn showed a negative for ACS comes here for similar chest pain on the right side for last 2 days patient been here also multiple times for similar pain no shortness of breath no fever no chills Related Data Previous Rx's Medication Instructions Recorded famotidine 20 mg tablet (Pepcid) 20 mg PO BID gerd #10 tabs 02/16/22 ondansetron 4 mg disintegrating 4 mg PO Q6-8H PRN nausea and 02/16/22 tablet vomiting #10 tabs ondansetron 4 mg disintegrating 4 mg PO Q8H 4 days #12 tabs 02/28/22 tablet pantoprazole 40 mg tablet,delayed 40 mg PO DAILY #20 tabs 02/28/22 release (Protonix) Allergies Allergy/AdvReac Type Severity Reaction Status Date / Time Penicillins [PENICILLINS] Allergy Unknown [facility] Verified 04/04/22 12:14 haloperidol [From Haldol] Allergy Unknown Verified 03/11/22 23:47 Review of Systems Review of Systems: Yes all other systems are reviewed and are negative [facility] Past Medical History Medical History Mood disorder Polysubstance abuse Social History Social History Alcohol intake: former Patient Tobacco Use Status: Never used Tobacco Substance Use Type: Crack/Cocaine and Marijuana Advance Directives: No Physical Exam Vital Signs: Vital Signs: Last Vital Signs Temp 98.5 F 06/26/22 00:04 Pulse 87 06/26/22 00:04 Resp 18 06/26/22 00:04 BP 120/78 06/26/22 00:04 Pulse Ox 97 06/26/22 00:04 O2 Del Method 06/26/22 00:04 BMI result Body Mass Index 25.3 Appearance: Alert. Oriented X3. No acute distress. ENT: Pharynx normal. Oral Mucosa moist Neck: Normal inspection. Neck supple. CVS: Normal heart rate and rhythm. Pulses normal. Respiratory: No respiratory distress. Equal air entry bilateral, no wheezing/rales/rhonchi Abdomen: Soft and nontender. Bowel sounds are present, no mass palpable, no CVA tenderness Skin: Skin warm and dry. Normal skin color. Normal skin turgor. Extremities: No lower extremity edema. No calf tenderness Neuro: Oriented X 3. No motor deficit. MDM - Chest Pain Differential Diagnosis Differential diagnosis: Likely atypical chest pain Medical Records Data Attestation: I reviewed the patient's medical records. Medical records narrative: [facility] record reviewed ECG Data ECG #1: Attestation: I personally reviewed and interpreted this ECG as follows: Interpretation: Sinus tachycardia heart rate 102 beats per minute normal interval normal axis no acute ST wave changes no acute ischemia Discharge Plan Discharge Clinical Impression: Atypical chest pain Patient Disposition: Home, Self-Care Instructions: Chest Pain (ED) Additional Instructions: Stop using cocaine Follow with PCP Prescriptions: No Action ondansetron 4 mg tablet,disintegrating 4 mg PO Q6-8H PRN (Reason: nausea and vomiting) Qty: 10 0RF famotidine [Pepcid] 20 mg tablet 20 mg PO BID Qty: 10 0RF pantoprazole [Protonix] 40 mg tablet,delayed release (DR/EC) 40 mg PO DAILY Qty: 20 0RF ondansetron 4 mg tablet,disintegrating 4 mg PO Q8H 4 Days Qty: 12 0RF
--- NOTE | 2022-06-26 02:44 | PC.NURSE ---
pt seen by provider, while repeat vitals being taken pt became inappropiate with his words, calling this rn and doctors with vulgar language.
== END 2022-06-26 02:49 | disposition home or self-care (01) ==
PROVIDERS: Emergency Provider Internal Medicine
DX: R07.89 Other chest pain (principal); Z79.899 Other long term (current) drug therapy
CPT/HCPCS: 93005; 99283; 99284

== ENCOUNTER 2022-07-06 02:03 | Emergency (ER) | payer OTHER, SELFPAY ==
[2022-07-06 02:07] VITALS: BP 112/71; PULSE 96; RESP 15; TEMP 37; O2SAT 100; BMI 24.2
--- NOTE | 2022-07-06 03:05 | ED.ABDPAIN ---
HPI - Abdominal Pain General Chief Complaint: Abdominal Pain Stated Complaint: Abd pain Time Seen by Provider: 07/06/22 03:03 History of Present Illness HPI narrative: Patient history of polysubstance abuse fentanyl PCP cocaine and marijuana comes here for diffuse abdominal pain no nausea no vomiting patient here multiple times for multiple complaints homeless Related Data Previous Rx's Medication Instructions Recorded famotidine 20 mg tablet (Pepcid) 20 mg PO BID gerd #10 tabs 02/16/22 ondansetron 4 mg disintegrating 4 mg PO Q6-8H PRN nausea and 02/16/22 tablet vomiting #10 tabs ondansetron 4 mg disintegrating 4 mg PO Q8H 4 days #12 tabs 02/28/22 tablet pantoprazole 40 mg tablet,delayed 40 mg PO DAILY #20 tabs 02/28/22 release (Protonix) omeprazole 40 mg capsule,delayed 40 mg PO DAILY #30 caps 07/06/22 release sucralfate 1 gram tablet 1 g PO BID #60 tabs 07/06/22 Allergies Allergy/AdvReac Type Severity Reaction Status Date / Time Penicillins [PENICILLINS] Allergy Unknown [place] Verified 07/06/22 02:09 haloperidol [From Haldol] Allergy Unknown Verified 07/06/22 02:09 Review of Systems Review of Systems Yes all other systems are reviewed and are negative PMFSH Past Medical History Medical History Mood disorder Polysubstance abuse Social History Social History Alcohol intake: former Patient Tobacco Use Status: Never used Tobacco Substance Use Type: Crack/Cocaine and Marijuana Advance Directives: No Advance Directives Information Provided: Yes Physical Exam ED Vital Signs: Vital Signs - 24 hr 07/06/22 02:07 Temperature 98.6 F Pulse Rate 96 Respiratory Rate 15 Blood Pressure 112/71 Pulse Oximetry 100 Oxygen Delivery Method Room Air BMI result Body Mass Index 24.2 Appearance: Alert. Oriented X3. No acute distress. Unkept condition Eyes: PERRLA, No Nystagmus ENT: Pharynx normal. Oral Mucosa moist Neck: Normal inspection. Neck supple. CVS: Normal heart rate and rhythm. Pulses normal. Respiratory: No respiratory distress. Equal air entry bilateral, no wheezing/rales/rhonchi Abdomen: Soft mild epigastric tenderness Bowel sounds are present, no mass palpable, no CVA tenderness Skin: Skin warm and dry. Normal skin color. Normal skin turgor. Extremities: No lower extremity edema. No calf tenderness Neuro: Oriented X 3. No motor deficit. MDM - Abdominal Pain MDM Narrative Medical decision making narrative: Patient with chronic gastritis discharge patient home on Prilosec sucralfate Discharge Plan Discharge Clinical Impression: Abdominal pain Patient Disposition: Home, Self-Care Instructions: Abdominal Pain (ED) Additional Instructions: Take your acid medication as prescribed pain is likely from gastritis Prescriptions: New omeprazole 40 mg capsule,delayed release(DR/EC) 40 mg PO DAILY Qty: 30 0RF sucralfate 1 gram tablet 1 g PO BID Qty: 60 0RF No Action ondansetron 4 mg tablet,disintegrating 4 mg PO Q6-8H PRN (Reason: nausea and vomiting) Qty: 10 0RF famotidine [Pepcid] 20 mg tablet 20 mg PO BID Qty: 10 0RF pantoprazole [Protonix] 40 mg tablet,delayed release (DR/EC) 40 mg PO DAILY Qty: 20 0RF ondansetron 4 mg tablet,disintegrating 4 mg PO Q8H 4 Days Qty: 12 0RF
[2022-07-06 03:13] LABS: Appearance Urine Clear; Color Urine Yellow; Glucose Urine UA Negative (Negative); Leukocyte Esterase Urine Negative (Negative); Nitrite Urine Negative (Negative); Specific Gravity - Urine <= 1.005 (1.005-1.025); Urine Blood Negative (Negative); Urine Ketones Negative (Negative); Urine Protein Negative (Neg-Trace)
--- NOTE | 2022-07-06 03:16 | PC.NURSE ---
patient left the treatment room before RN could medicate and discharge the patient.
== END 2022-07-06 03:17 | disposition home or self-care (01) ==
PROVIDERS: Emergency Provider Internal Medicine
DX: R10.9 Unspecified abdominal pain (principal); F14.90 Cocaine use, unspecified, uncomplicated; Z79.899 Other long term (current) drug therapy
CPT/HCPCS: 81003; 99282